=== PATIENT | female | born 1965 | race Two or more races ===

== ENCOUNTER 2025-06-25 12:32 | Inpatient (IN) | payer MEDICAID, OTHER ==
[~2025-06-25] VITALS: Ht 157.5 cm; Wt 77.6 kg
--- NOTE | 2025-06-25 13:20 | ED.PDOC ---
History of Present Illness(SKN HPI Comments A 60-YEAR-OLD FEMALE WITH NO SIGNIFICANT PMHX PRESENTS TO THE ED WITH A C/C OF A NOTABLE INFECTION, WITH ASSOCIATED CELLULITIS TO THE RIGHT ELBOW. PATIENT STATES THAT SHE PRESENTED TO URGENT CARE BUT WAS UNABLE TO GET TREATMENT DUE TO HER SUGAR BEING IN THE 300S, BUT DENIES HAVING DIABETES. PATIENT IS STARTED TO HAVE NOTABLE SWELLING, ERYTHEMA, AND NOTABLE PUS LIKE DISCHARGE UPON PALPITATION, IN SEVERE PAIN. PATIENT DENIES KNOWING THE SOURCE ROOT CAUSE OF INFECTION, NAUSEA, VOMITING, DIARRHEA, OR ANY OTHER ASSOCIATED SYMPTOMS, MODIFIERS AT THIS TIME. PT IS ALERT, ORIENTATION X4 WITH NORMAL GAIT. Chief Complaint: Abscess Time Seen by MD: 13:14 History of Present Illness: Nurses Notes, Medications, Allergies Allergies: Coded Allergies: NO KNOWN ALLERGIES (Unverified , 06/25/25) Information Source: Patient Mode of Arrival: Ambulatory Severity: Moderate Timing: Weeks Duration: Since onset, Days Prehospital treatment: None Location: Extremities (RIGHT ELBOW) Mechanism: Spontaneous Onset Object: Unknown Condition of Object: None Retained Foreign Body: Unknown Wound Type: Abscess Immunization Status of Animal: Unknown Tetanus: Unknown History of: Diabetes Associated Signs and Symptoms: Redness, Swelling, Pus, Pain Past Medical History PAST MEDICAL HISTORY: Denies Surgical History: Denies all surgeries 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 History Family History Family History: Reviewed,noncontributory to illness Social History Smoker: Non-Smoker Alcohol: Denies ETOH Use Drugs: Denies Drug Use Lives In: Home Constitutional: reports: others (ANXIOUS ); denies: chills, diaphoresis, fatigue, fever, malaise, sweats, weakness EENTM: denies: blurred vision, double vision, ear bleeding, ear discharge, ear drainage, ear pain, ear ringing, eye pain, eye redness, hearing loss, mouth pain, mouth swelling, nasal discharge, nose bleeding, nose congestion, nose pain, photophobia, tearing, throat pain, throat swelling, voice changes, others Respiratory: denies: cough, hemoptysis, orthopnea, SOB at rest, shortness of breath, SOB with excertion, stridor, wheezing, others Cardiovascular: denies: chest pain, dizzy spells, diaphoresis, Dyspnea on exertion, edema, irregular heart beat, left arm pain, lightheadedness, p alpitations, PND, syncope, others Gastrointestinal: denies: abdomen distended, abdominal pain, blood streaked bowels, constipated, diarrhea, dysphagia, difficulty swallowing, hematemesis, melena, nausea, poor appetite, poor fluid intake, rectal bleeding, rectal pain, vomiting, others Genitourinary: denies: abnormal vagina bleeding, burning, dyspareunia, dysuria, flank pain, frequency, hematuria, incontinence, pain, , vagina discharge, urgency, others Neurological: denies: dizziness, fainting, headache, left sided numbness, left sided weakness, numbness, paresthesia, pre-existing deficit, right sided numbness, right sided weakness, seizure, speech problems, tingling, tremors, weakness, others Musculoskeletal: denies: back pain, gout, joint pain, joint swelling, muscle pain, muscle stiffness, neck pain, others Integumetry: reports: lesions, wounds; denies: bruises, change in color, change in hair/nails, dryness, laceration, lumps, rash, others Allergic/Immunocompromised: denies: Difficulty Healing, Frequent Infections, Hives, Itching, others Hematologic/Lymphatic: denies: anemia, blood clots, easy bleeding, easy bruising, swollen glands, others Endocrine: denies: excessive hunger, excessive sweating, excessive thirst, excessive urination, flushing, intolerance to cold, intolerance to heat, u nexplained weight gain, unexplained weight loss, others Psychiatric: denies: anxiety, bipolar disorder, depression, hopeless, panic disorder, schizophrenia, sleepless, suicidal, others All Other Systems: Reviewed and Negative Physical Exam General Appearance: Mild Distress, Normal, Other (ANXIOUS ) HEENT: Normal ENT Inspection, PERRL/EOMI, Pharynx Normal, TMs Normal Neck: Full Range of Motion, Non-Tender, Normal, Normal Inspection Respiratory: Chest Non-Tender, Lungs Clear, No Accessory Muscle Use, No Respiratory Distress, Normal Breath Sounds Cardiovascular: No Edema, No JVD, No Murmur, No Gallop, Normal Peripheral Pulses, Regular Rate/Rhythm Breast Exam: Deferred Gastrointestinal: No Organomegaly, Non Tender, No Pulsatile Mass, Normal Bowel Sounds, Soft Genitalia: Deferred Pelvic: Deferred Rectal: Deferred Extremities: Decreased range of motion, Inflammation, No calf tenderness, Normal capillary refill, No pedal edema, Swelling (REDNESS AND ABSCESS ON RIGHT POSTERIOR ELBOW. ), Tender (SWELLING AND ERYTHEMA ON RIGHT POSTERIOR ELBOW. 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 ) Peripheral Pulses: 2+ carotid (R), 2+ carotid (L), 2+ Radial (R), 2+ Radial (L) Lymphatic: No Adenopathy Was a procedure done? Was a procedure done?: Yes Sedation Sedation?: No Incision and Drainage Incision and Drainage: Abscess Location RIGHT ELBOW Anesthetic: Lidocaine (NO EPI) Preparation: Betadine, Saline Incision and Wound: Pus, Blood, Amount, Packed Informed consent obtained: No Risks/benefits/alt described: Yes Differential Diagnosis (INTG) Differential Diagnosis: Abrasion, Cellulitis, Contusion, Puncture Wound Differential Diagnosis: Abscess, Cellulitis Differential Diagnosis: Abrasion, Cellulitis Abscess: Abscess, Cellulitis Differential Diagnosis: Cellulitis, Puncture Wound X-Ray, Labs, Meds, VS Vital Signs Date Time Temp Pulse Resp B/P (MAP) Pulse Ox O2 Delivery O2 Flow Rate FiO2 06/25/25 15:46 71 16 97 Room Air* 0 21 06/25/25 15:01 98.4 69 16 133/75 (94) 94 98.4 06/25/25 12:34 98.2 78 18 149/82 98 98.2 Lab Test 06/25/25 14:58 06/25/25 13:48 06/25/25 13:30 Range/Units POC Glucose 472 *H 70-106 mg/dl White Blood Count 12.8 H 4.4-10.8 10^3/uL Red Blood Count 4.73 4.0-5.20 10^6/uL Hemoglobin 15.5 12.2-16.2 g/dL Hematocrit 45.4 36.0-46.0 % Mean Corpuscular Volume 95.9 80.0-100.0 fL Mean Corpuscular Hemoglobin 32.9 H 28.0-32.0 pg Mean Corpuscular Hemoglobin Concent 34.3 32.0-36.0 g/dL Red Cell Distribution Width 13.3 11.8-14.3 % Platelet Count 216 140-450 10^3/uL Mean Platelet Volume 10.1 6.9-10.8 fL Neutrophils (%) (Auto) 87.7 H 37.0-80.0 % Lymphocytes (%) (Auto) 9.0 L 10.0-50.0 % Monocytes (%) (Auto) 3.0 0.0-12.0 % Eosinophils (%) (Auto) 0.1 0.0-7.0 % Basophils (%) (Auto) 0.2 0.0-2.0 % Neutrophils # (Auto) 11.3 H 1.6-8.6 10 ^3/uL Lymphocytes # (Auto) 1.2 0.4-5.4 10 ^3/uL Monocytes # (Auto) 0.4 0-1.3 10 ^3/uL Eosinophils # (Auto) 0 0-0.8 10 ^3/uL Basophils # (Auto) 0 0-0.2 10 ^3/uL Nucleated Red Blood Cells 0.1 % Sodium Level 134 L 136-145 mmol/L Potassium Level 4.2 3.5-5.1 mmol/L Chloride Level 100 98-107 mmol/L Carbon Dioxide Level 23 20-31 mmol/L Anion Gap 11 5-15 Blood Urea Nitrogen 16 9-23 mg/dL Creatinine 0.89 0.550-1.02 mg/dL Glomerular Filtration Rate Calc 75 >90 mL/min BUN/Creatinine Ratio 18.0 10.0-20.0 Serum Glucose 423 *H 74-106 mg/dL Lactic Acid Level 2.0 0.4-2.0 mmol/L Calcium Level 8.9 8.7-10.4 mg/dL C-Reactive Protein High Sensitivity Pending Urine Opiates Screen Neg NEGATIVE Urine Fentanyl Screen Neg NEGATIVE Urine Barbiturates Screen Neg NEGATIVE Urine Phencyclidine Screen Neg NEGATIVE Urine Amphetamines Screen Neg NEGATIVE Urine Benzodiazepines Screen Neg NEGATIVE Urine Cocaine Screen Neg NEGATIVE Urine Cannabinoids Screen Neg NEGATIVE Current Medications Medications (Trade) Dose Ordered Sig/Hector Route Start Time Stop Time Status Last Admin Ceftriaxone Sodium 50 ml @ 100 mls/hr ONCE ONCE IV 06/25/25 13:15 06/25/25 13:44 DC 06/25/25 14:16 Clindamycin Phosphate 50 ml @ 50 mls/hr ONCE ONCE IV 06/25/25 13:15 8/20/25 14:14 DC 06/25/25 14:03 Acetaminophen/ Hydrocodone Bitart (Sharps 5/325MG Tab) 1 tab ONCE ONCE PO 06/25/25 13:45 06/25/25 13:46 DC 06/25/25 13:55 Sodium Chloride 2,000 ml @ 1,000 mls/hr Q2H ONCE IV 06/25/25 14:30 06/25/25 16:29 DC 06/25/25 15:04 Insulin Human Regular (InsuLIN R) 10 units ONCE ONCE IV 06/25/25 14:30 06/25/25 14:31 DC 06/25/25 15:05 PATIENT: BLACK REYES ACCT: [id number] UNIT: [id number] : 1965 LOC: ER ROOM / BED: / AGE / SEX: 60 / F ADM STATUS: REG ER SERVICE 1314 ORDERING PHYSICIAN: DENISSE SANTIAGO PROCEDURE(s): RELB3 - R ELBOW 3 VIEW XRAY REASON: ABSCESS WOUND ORDER NUMBER(s): [id number], ACCESSION NUMBER(s): [id number] CLINICAL INDICATION: ABSCESS WOUND TECHNIQUE: 3 radiographic views of the right elbow were obtained. Comparison: None FINDINGS/IMPRESSION: There is small elbow joint effusion with no obvious fractures visualized. An occult fracture can not be excluded. There is significant posterior elbow soft tissue edema. X-Ray, Labs, Meds, VS Comment EXTERNAL MEDICAL RECORDS REVIEWED: [NONE] INDEPENDENT HISTORIANS: [NONE] SOCIAL DETERMINANTS OF HEALTH: [NONE] LABS ORDERED: CBC, BNP, LACTIC ACID, BLOOD CULTURES, WOUND CULTURES REVIEWED AND INTERPRETED RESULTS: WBC 12.8 SODIUM 131, GLUCOSE 423, IMAGING ORDERED: RIGHT ELBOW X-RAY TREATMENTS ORDERED: ROCEPHIN, CLINDAMYCIN, NORCO 5, LIDOCAINE 1% WITHOUT EPI, 0.9 NS 2L, REGULAR INSULIN 10 UNITS PROCEDURES PERFORMED: RIGHT ELBOW ABSCESS I&D CRITICAL CARE TIME: NONE I HAVE DISCUSSED THE PATIENT WITH THE ATTENDING PHYSICIAN (LYLE) AND S/HE AGREES WITH THE PATIENT'S PLAN OF CARE AND DISPOSITION. 60-YEAR-OLD FEMALE CAME IN FOR THE C/C OF A ABSCESS WITH NOTABLE CELLULITIS TO THE RIGHT ELBOW, PATIENT HAD NOTABLE DISCHARGE, AND ERYTHEMA UPON EXAMINATION WITH THE PAIN UPON PALPITATION, AN INCISION AND DRAINAGE PROCEDURE WAS PERFORMED AND NOTED BLOOD AND PUS LIKE DRAINAGE WAS REMOVED AND PROPER WRAPPING ADMINISTERED, PATIENT IS GOING TO BE ADMITTED TO THE HOSPITAL FOR FURTHER EVALUATION AND TREATMENT. Time of 1ST Reevaluation: 13:47 Reevaluation 1ST: Unchanged Patient Education/Counseling: Diagnosis, Treatment Family Education/Counseling: Diagnosis, Treatment, No Family Present SEPSIS Sepsis Screen Date sepsis recognized/suspect: Jun 25, 2025 Time Sepsis recognized/suspect: 6 Recent Procedure: No On Antibiotic Therapy: No Respiratory Rate >20: No Heart Rate >90: No Temp<36 C (96.8 F) or >38.3 C: No SBP <90 or MAP <65 mmHG: No New Acute Mental Status Change: No Is the patient on CPAP, BIPAP,: No Physician Orders Wound Culture W/ Gs (06/25/25 13:14) Blood Culture (06/25/25 13:14) 4X4 (06/25/25 13:14) Betadine (06/25/25 13:14) Disposable Chux (06/25/25 13:14) Lac Tray (06/25/25 13:14) R Elbow 3 View Xray (06/25/25 13:14) Heplock Iv (06/25/25 ) Vital Signs Date Time Temp Pulse Resp B/P (MAP) Pulse Ox O2 Delivery O2 Flow Rate FiO2 06/25/25 15:46 71 16 97 Room Air* 0 21 06/25/25 15:01 98.4 69 16 133/75 (94) 94 98.4 06/25/25 12:34 98.2 78 18 149/82 98 98.2 Laboratory Tests Test 06/25/25 13:48 Lactic Acid Level 2.0 mmol/L (0.4-2.0) White Blood Count 12.8 10^3/uL (4.4-10.8) H Medications Medications Dose Ordered Sig/Hector Route Start Time Stop Time Status Last Admin Dose Admin Acetaminophen/ Hydrocodone Bitart 1 tab ONCE ONCE PO 06/25/25 13:45 06/25/25 13:46 DC 06/25/25 13:55 Ceftriaxone Sodium 50 ml @ 100 mls/hr ONCE ONCE IV 06/25/25 13:15 06/25/25 13:44 DC 06/25/25 14:16 Clindamycin Phosphate 50 ml @ 50 mls/hr ONCE ONCE IV 06/25/25 13:15 06/25/25 14:14 DC 06/25/25 14:03 Insulin Human Regular 10 units ONCE ONCE IV 06/25/25 14:30 06/25/25 14:31 DC 06/25/25 15:05 Sodium Chloride 2,000 ml @ 1,000 mls/hr Q2H ONCE IV 06/25/25 14:30 06/25/25 16:29 DC 06/25/25 15:04 Departure 1 Departure Time of Disposition: 14:00 Impression: Primary Impression: Cellulitis of right elbow Additional Impressions: Abscess of right elbow New onset type 2 diabetes mellitus Disposition: ADMITTED INPATIENT Admit to: Med Surg Condition: Serious Discharged With: Other (ADMITTED) Critical Care Note Critical Care Time?: No Stability Stability form required: Yes Unstable for transfer: Requires medication, ED Physician Assesment, Possible rapid decline Heart Score Heart Score: Heart Score Response (Comments) Value History N/A 0 EKG N/A 0 Age N/A 0 Risk Factors N/A 0 Troponin N/A 0 Total 0 I personally scribed for DENISSE SANTIAGO PA ([email or web address]) on 06/25/25 at 13:20. Electronically submitted by Wilfred Suarez ([email or web address]). I personally scribed for DENISSE SANTIAGO PA ([email or web address]) on 06/25/25 at 13:22. Electronically submitted by Wlifred Suarez ([email or web address]). I personally scribed for MACIEL SANTIAGOA PA ([email or web address]) on 06/25/25 at 13:40. Electronically submitted by Wilfred Suarez ([employer]). I personally scribed for MACIEL SANTIAGOA PA ([email or web address]) on 06/25/25 at 13:49. Electronically submitted by Wilfred Suarez ([employer]). I personally scribed for MACIEL SANTIAGOA PA ([email or web address]) on 06/25/25 at 14:32. Electronically submitted by Wilfred Suarez ([email or web address]). DENISSE SANTIAGO Jun 25, 2025 13:20
[2025-06-25] MEDS: LIDOCAINE 1% HCL (LOCAL ANESTH.) INJ 20ML MDV IJ ONE (13:26)
--- NOTE | 2025-06-25 13:54 | DVH ---
CLINICAL INDICATION: ABSCESS WOUND TECHNIQUE: 3 radiographic views of the right elbow were obtained. Comparison: None FINDINGS/IMPRESSION: There is small elbow joint effusion with no obvious fractures visualized. An occult fracture can not be excluded. There is significant posterior elbow soft tissue edema.
[2025-06-25] MEDS: HYDROcodone-ACET 5/325MG TAB PO ONE (13:55)
[2025-06-25] MEDS: CLINDAMYCIN 600MG IV 50 ML IV ONE (14:03)
[2025-06-25 14:04] LABS: Hematocrit 45.4 % (36.0-46.0); Hemoglobin 15.5 g/dL (12.2-16.2); Mean Corpuscular Hemoglobin 32.9 pg (28.0-32.0); Mean Corpuscular Volume 95.9 fL (80.0-100.0); Nucleated Red Blood Cells % 0.1 %
[2025-06-25 14:08] LABS: Anion Gap 11 (5-15); Carbon Dioxide 23 mmol/L (20-31); Chloride 100 mmol/L (98-107); Potassium 4.2 mmol/L (3.5-5.1)
[2025-06-25 14:09] LABS: Calcium 8.9 mg/dL (8.7-10.4); Sodium 134 mmol/L (136-145)
[2025-06-25 14:14] LABS: BUN/Creatinine Ratio 18.0 (10.0-20.0); Blood Urea Nitrogen 16 mg/dL (9-23)
[2025-06-25] MEDS: cefTRIAXone 1GM/50ML D5W 50 ML IV ONE (14:16)
[2025-06-25 14:20] LABS: Glucose 423 mg/dL (74-106)
[2025-06-25] MEDS: SODIUM CHLORIDE 0.9% 2,000 ML IV ONE (15:04)
[2025-06-25 15:05] LABS: Amphetamine Screen, Urine Neg (NEGATIVE); Barbiturate Scree,Urine Neg (NEGATIVE); Benzodiazephine Screen, Urine Neg (NEGATIVE); Cannabinoid Screen, Urine Neg (NEGATIVE); Cocaine Screen, Urine Neg (NEGATIVE); Opiate Scree,Urine Neg (NEGATIVE); Phencyclidine Screen, Urine Neg (NEGATIVE)
[2025-06-25] MEDS: InsuLIN REG 1unit/0.01ml Soln (100units/ml) IV ONE (15:05)
[2025-06-25 15:46] VITALS: PULSE 71; RESP 16; O2SAT 97
[2025-06-25] MEDS ORDERED: DOCUSATE SOD 100 MG CAP PO PRN (16:45)
[2025-06-25] MEDS ORDERED: VANCOMYCIN PER PHARMACY 0 MG IV SCH (16:45)
--- NOTE | 2025-06-25 16:56 | DVHHP2 ---
Admitting Diagnosis: right elbow pain History of Present Illness 60-YEAR-OLD FEMALE WITH NO SIGNIFICANT PMHX PRESENTS TO THE ED WITH A C/C OF A NOTABLE INFECTION, WITH ASSOCIATED CELLULITIS TO THE RIGHT ELBOW. PATIENT STATES THAT SHE PRESENTED TO URGENT CARE BUT WAS UNABLE TO GET TREATMENT DUE TO HER SUGAR BEING IN THE 300S, BUT DENIES HAVING DIABETES. PATIENT IS STARTED TO HAVE NOTABLE SWELLING, ERYTHEMA, AND NOTABLE PUS LIKE DISCHARGE UPON PALPITATION, IN SEVERE PAIN. PATIENT DENIES KNOWING THE SOURCE ROOT CAUSE OF INFECTION, NAUSEA, VOMITING, DIARRHEA, OR ANY OTHER ASSOCIATED SYMPTOMS, MODIFIERS AT THIS TIME. 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 History Family History Family History: Reviewed,noncontributory to illness Social History Smoker: Non-Smoker Alcohol: Denies ETOH Use Drugs: Denies Drug Use Lives In: Home Allergies: Coded Allergies: NO KNOWN ALLERGIES (Unverified , 06/25/25) Current Medications Current Medications Medications (Trade) Dose Ordered Sig/Hector Route PRN Reason Start Time Stop Time Status Last Admin Sodium Chloride (Saline Lock Ns) 10 ml Q8HR IV 06/25/25 22:00 UNV Docusate Sodium (Colace Capsule) 100 mg BIDPRN PRN PO FOR CONSTIPATION 06/25/25 16:45 UNV Acetaminophen (Tylenol Tablet) 650 mg Q6HP PRN PO PAIN SCALE 1-3 OR TEMP>100.4 06/25/25 16:45 UNV Acetaminophen/ Hydrocodone Bitart (Lenorah 5/325MG Tab) 1 tab Q4HP PRN PO MODERATE PAIN (4-6 PAIN SCALE) 06/25/25 16:45 UNV Ondansetron HCl (Zofran) 4 mg Q4HP PRN IV NAUSEA / VOMITING 06/25/25 16:45 UNV Enoxaparin Sodium (Lovenox) 40 mg DAILY SC 06/26/25 10:00 UNV Vital Signs Vital Signs Date Time Temp Pulse Resp B/P (MAP) Pulse Ox O2 Delivery O2 Flow Rate FiO2 06/25/25 15:46 71 16 97 Room Air* 0 21 06/25/25 15:01 98.4 133/75 (94) 98.4 Physical Exam [id number]igiy-old woman, well nourished well developed. Mild distress HEENT-atraumatic normocephalic Heart-regular rate and rhythm Lungs clear to auscultate bilaterally Abdomen soft nontender nondistended Musculoskeletal-elbow edema, erythema, tender to palpate. Neuro-AO x3, strength and sensory intact SEPSIS Sepsis Screen Date sepsis recognized/suspect: Jun 25, 2025 Time Sepsis recognized/suspect: 1235 Recent Procedure: No On Antibiotic Therapy: No Respiratory Rate >20: No Heart Rate >90: No Temp<36 C (96.8 F) or >38.3 C: No SBP <90 or MAP <65 mmHG: No New Acute Mental Status Change: No Is the patient on CPAP, BIPAP,: No Physician Orders Wound Culture W/ Gs (06/25/25 13:14) Blood Culture (06/25/25 13:14) 4X4 (06/25/25 13:14) Betadine (06/25/25 13:14) Disposable Chux (06/25/25 13:14) Lac Tray (06/25/25 13:14) R Elbow 3 View Xray (06/25/25 13:14) Heplock Iv (06/25/25 ) * Wound Consult (06/25/25 ) Admit (06/25/25 16:44) Code Status (06/25/25 16:44) Vital Signs .PER UNIT PROTOCOL (06/25/25 16:44) Review Orders With Adm.Md (06/25/25 16:44) Encourage Activity As Tolerate (06/25/25 16:44) Consistent Carb(Ccho)Diabetes (06/25/25 Dinner) Sodium Chloride Lock (Saline Lock Ns) (06/25/25 22:00) Docusate Sodium Capsule (Colace Capsule) (06/25/25 16:45) Acetaminophen Tablet (Tylenol Tablet) (06/25/25 16:45) Notify Md Of Changes From Base (06/25/25 16:44) Advance Directive (06/25/25 16:44) Patient Condition (06/25/25 16:44) Allergies (06/25/25 16:44) Hydrocodone-Acet 5/325mg Tab (Lenorah 5/32 (06/25/25 16:45) Ondansetron Hcl (Zofran) (06/25/25 16:45) Enoxaparin Sodium (Lovenox) (06/26/25 10:00) Piperacillin-Tazob 3.375gm (Zosyn 3.375g (06/25/25 22:00) Vancomycin Per Pharmacy (06/25/25 16:45) Glucose Blood (Accu-Chek Comfort Curve T (06/25/25 17:00) Bedtime Insulin Scale (06/25/25 22:00) Moderate Insulin Ss (06/25/25 17:00) Dextrose 50% Syringe (06/25/25 17:00) Ct R Elbow Wo Contrast (06/25/25 16:48) Comprehensive Metabolic Panel (06/26/25 05:00) Comprehensive Metabolic Panel (06/27/25 05:00) Comprehensive Metabolic Panel (06/28/25 05:00) Comprehensive Metabolic Panel (06/29/25 05:00) Comprehensive Metabolic Panel (06/30/25 05:00) Complete Blood Count (06/26/25 05:00) Complete Blood Count (06/27/25 05:00) Complete Blood Count (06/28/25 05:00) Complete Blood Count (06/29/25 05:00) Complete Blood Count (06/30/25 05:00) C-Reactive Protein (06/25/25 16:48) Vital Signs Date Time Temp Pulse Resp B/P (MAP) Pulse Ox O2 Delivery O2 Flow Rate FiO2 06/25/25 15:46 71 16 97 Room Air* 0 21 06/25/25 15:01 98.4 69 16 133/75 (94) 94 98.4 06/25/25 12:34 98.2 78 18 149/82 98 98.2 Laboratory Tests Test 06/25/25 13:48 Lactic Acid Level 2.0 mmol/L (0.4-2.0) White Blood Count 12.8 10^3/uL (4.4-10.8) H Medications Medications Dose Ordered Sig/Hector Route Start Time Stop Time Status Last Admin Dose Admin Acetaminophen/ Hydrocodone Bitart 1 tab ONCE ONCE PO 06/25/25 13:45 06/25/25 13:46 DC 06/25/25 13:55 Ceftriaxone Sodium 50 ml @ 100 mls/hr ONCE ONCE IV 06/25/25 13:15 06/25/25 13:44 DC 06/25/25 14:16 Clindamycin Phosphate 50 ml @ 50 mls/hr ONCE ONCE IV 06/25/25 13:15 06/25/25 14:14 DC 06/25/25 14:03 Insulin Human Regular 10 units ONCE ONCE IV 06/25/25 14:30 06/25/25 14:31 DC 06/25/25 15:05 Sodium Chloride 2,000 ml @ 1,000 mls/hr Q2H ONCE IV 06/25/25 14:30 06/25/25 16:29 DC 06/25/25 15:04 Results Labs Test 06/25/25 14:58 06/25/25 13:48 06/25/25 13:30 Range/Units POC Glucose 472 *H 70-106 mg/dl White Blood Count 12.8 H 4.4-10.8 10^3/uL Red Blood Count 4.73 4.0-5.20 10^6/uL Hemoglobin 15.5 12.2-16.2 g/dL Hematocrit 45.4 36.0-46.0 % Mean Corpuscular Volume 95.9 80.0-100.0 fL Mean Corpuscular Hemoglobin 32.9 H 28.0-32.0 pg Mean Corpuscular Hemoglobin Concent 34.3 32.0-36.0 g/dL Red Cell Distribution Width 13.3 11.8-14.3 % Platelet Count 216 140-450 10^3/uL Mean Platelet Volume 10.1 6.9-10.8 fL Neutrophils (%) (Auto) 87.7 H 37.0-80.0 % Lymphocytes (%) (Auto) 9.0 L 10.0-50.0 % Monocytes (%) (Auto) 3.0 0.0-12.0 % Eosinophils (%) (Auto) 0.1 0.0-7.0 % Basophils (%) (Auto) 0.2 0.0-2.0 % Neutrophils # (Auto) 11.3 H 1.6-8.6 10 ^3/uL Lymphocytes # (Auto) 1.2 0.4-5.4 10 ^3/uL Monocytes # (Auto) 0.4 0-1.3 10 ^3/uL Eosinophils # (Auto) 0 0-0.8 10 ^3/uL Basophils # (Auto) 0 0-0.2 10 ^3/uL Nucleated Red Blood Cells 0.1 % Sodium Level 134 L 136-145 mmol/L Potassium Level 4.2 3.5-5.1 mmol/L Chloride Level 100 98-107 mmol/L Carbon Dioxide Level 23 20-31 mmol/L Anion Gap 11 5-15 Blood Urea Nitrogen 16 9-23 mg/dL Creatinine 0.89 0.550-1.02 mg/dL Glomerular Filtration Rate Calc 75 >90 mL/min BUN/Creatinine Ratio 18.0 10.0-20.0 Serum Glucose 423 *H 74-106 mg/dL Lactic Acid Level 2.0 0.4-2.0 mmol/L Calcium Level 8.9 8.7-10.4 mg/dL Urine Opiates Screen Neg NEGATIVE Urine Fentanyl Screen Neg NEGATIVE Urine Barbiturates Screen Neg NEGATIVE Urine Phencyclidine Screen Neg NEGATIVE Urine Amphetamines Screen Neg NEGATIVE Urine Benzodiazepines Screen Neg NEGATIVE Urine Cocaine Screen Neg NEGATIVE Urine Cannabinoids Screen Neg NEGATIVE Primary Diagnosis Right elbow cellulitis Hyperglycemia control Plan Vanc and Zosyn for broad-spectrum antibiotic in view of hyperglycemia Blood culture Wound culture CT right elbow to assess for abscess IV fluids Pain control Antiemetic check a1c level when admitted Wound care Full code Lovenox for DVT prophylaxis No GI prophylaxis needed Low carb diet Plan discussed with: Patient Date of Service: Jun 25, 2025 Billing Provider: ANA MARÍA PINEDA MD Common Visit Codes: [id number] INP/OBS CARE (HIGH) ANA MARÍA PINEDA MD Jun 25, 2025 16:56
[2025-06-25] MEDS ORDERED: DEXTROSE (50%) 50ML SYRG IV PRN (17:00)
[2025-06-25] MEDS ORDERED: hydrALAZINE HCL 20 MG/ML VL IV PRN (17:15)
--- NOTE | 2025-06-25 17:40 | DVH ---
EXAM: CT CT R ELBOW WO CONTRAST INDICATION: Right elbow cellulitis EXAM DATE: 06/25/2025 04:54 PM COMPARISON: None TECHNIQUE: Multiple axial CT images of the right elbow were obtained using bone algorithm. Axial and coronal reformatting was done. Bone and soft tissue windows were reviewed. Radiation Dose Information: CT Dose: CTDI volume is 24.58 mGy. Dose-length product is 773.12 mGy*cm Findings/Impression: Limited evaluation given noncontrast technique. There is no evidence of an acute fracture, dislocation, osseous erosions, blastic, or lytic lesions. No radiopaque foreign bodies. No joint effusion. 3.7 x 1.4 x 5.2 cm subcutaneous soft tissue collection with subcutaneous emphysema along the lateral aspect of the right elbow. May reflect an abscess. Recommend contrast-enhanced CT or MRI for further evaluation.
[2025-06-25 17:52] VITALS: BP 114/67; PULSE 66; RESP 17; TEMP 98; O2SAT 97
[2025-06-25] MEDS: HYDROcodone-ACET 5/325MG TAB PO PRN (18:44)
[2025-06-25] MEDS: SODIUM CHLORIDE 0.9% 1,000 ML IV ONE (18:44)
[2025-06-25] MEDS: VANCOMYCIN 750MG KIT 100 ML IV SCH (18:44)
[2025-06-25] MEDS: ACCU-CHEK COMFORT CURVE STRIP VI SCH (18:57)
[2025-06-25] MEDS: InsuLIN REG 1unit/0.01ml Soln (100units/ml) SC SCH ×2 (18:58→21:24)
[2025-06-25 20:30] VITALS: PULSE 72; RESP 17; O2SAT 98
[2025-06-25 21:00] VITALS: BP 120/75; PULSE 72; RESP 17; TEMP 98.2; O2SAT 98
[2025-06-25] MEDS: SODIUM CHLOR 0.9% PF (SALINE LOCK) 10ML VIAL/SYR IV SCH (21:21)
[2025-06-25] MEDS: PIPERACILLIN-TAZOB 3.375GM 100 ML IV SCH (21:23)
[2025-06-26] VITALS (8 sets, daily range): BP systolic 107–138; BP diastolic 61–89; PULSE 65–75; RESP 16–20; TEMP 97.3–98.8; O2SAT 96–100
[2025-06-26 06:15] LABS: Hematocrit 45.3 % (36.0-46.0); Hemoglobin 15.1 g/dL (12.2-16.2); Mean Corpuscular Hemoglobin 32.0 pg (28.0-32.0); Mean Corpuscular Volume 96.4 fL (80.0-100.0); Nucleated Red Blood Cells % 0.0 %
[2025-06-26 06:29] LABS: Anion Gap 9 (5-15); BUN/Creatinine Ratio 17.7 (10.0-20.0); Blood Urea Nitrogen 11 mg/dL (9-23); Calcium 8.7 mg/dL (8.7-10.4); Carbon Dioxide 24 mmol/L (20-31); Chloride 104 mmol/L (98-107); Sodium 137 mmol/L (136-145); Total Protein 6.8 g/dL (5.7-8.2)
[2025-06-26 06:30] LABS: Albumin 3.6 g/dL (3.2-4.8); Bilirubin, Total 0.6 mg/dL (0.2-1.0)
[2025-06-26] MEDS: ACETAMINOPHEN 325 MG TAB PO PRN (06:31)
[2025-06-26 06:32] LABS: Alanine Aminotransferase 70 U/L (7-40); Alkaline Phosphatase 144 U/L (46-116); Glucose 155 mg/dL (74-106); Potassium 3.5 mmol/L (3.5-5.1)
[2025-06-26] MEDS: ENOXAPARIN SOD 40 MG/0.4 ML SYRINGE SC SCH (10:14)
--- NOTE | 2025-06-26 10:27 | DVHPN2 ---
Progress Note Date Seen: Jun 26, 2025 Medical Necessity Reason Pt with a Central, PICC or Fol: No Subjective Patient reports: No new complaints Review of Systems: HEENT:Normal, CVS:Normal, RESPIRATORY:Normal, GI:Normal, :Normal, MSK:Normal, NEURO:Normal Objective vital signs Vital Sign Date Time Temp Pulse Resp B/P (MAP) Pulse Ox O2 Delivery O2 Flow Rate FiO2 06/26/25 08:40 98.3 68 18 116/73 (87) 99 98.3 06/25/25 20:30 Room Air* 0 21 Total Intake and Output 06/25/25 06/25/25 06/26/25 15:00 23:00 07:00 Intake Total 275 ml 600 ml Balance 275 ml 600 ml medications Current Medications Medications Dose Ordered Sig/Hector Route Start Time Stop Time Status Last Admin Dose Admin Sodium Chloride 10 ml Q8HR IV 06/25/25 22:00 06/26/25 06:20 10 ML Docusate Sodium 100 mg BIDPRN PRN PO 06/25/25 16:45 Acetaminophen 650 mg Q6HP PRN PO 06/25/25 16:45 06/26/25 06:31 650 MG Acetaminophen/ Hydrocodone Bitart 1 tab Q4HP PRN PO 06/25/25 16:45 06/26/25 10:14 1 TAB Ondansetron HCl 4 mg Q4HP PRN IV 06/25/25 16:45 Enoxaparin Sodium 40 mg DAILY SC 06/26/25 10:00 06/26/25 10:14 40 MG Piperacillin Sod/ Tazobactam Sod 100 ml @ 25 mls/hr Q8HR IV 06/25/25 22:00 06/26/25 06:30 25 MLS/HR Vancomycin HCl 0 ml @ 0 mls/hr UD IV 06/25/25 16:45 Diagnostic Test (Pha) 1 strip ACHS 06/25/25 17:00 06/26/25 06:21 1 STRIP Insulin Human Regular HS SC 06/25/25 22:00 06/25/25 21:24 10 UNITS Insulin Human Regular AC SC 06/25/25 17:00 06/26/25 06:39 2 UNITS Dextrose 50 ml UD PRN IV 06/25/25 17:00 Vancomycin HCl 100 ml @ 100 mls/hr Q12H IV 06/25/25 18:00 8/21/25 06:30 100 MLS/HR Hydralazine HCl 10 mg Q6HP PRN IV 06/25/25 17:15 Examination: GENERAL:Normal, HEENT:Normal, NECK:Normal, LUNGS:Normal, CVS:Normal, ABDOMEN:Normal, MSK:Normal, MSK:Abnormal (right elbow redness, right arm swelling), SKIN:Normal, NEURO:Normal, :Normal laboratory and microbiology Laboratory Tests 06/26/25 05:40 Test 06/26/25 05:40 Range/Units Serum Glucose 155 H 74-106 mg/dL Microbiology Date/Time Source Procedure Growth Status 06/25/25 13:48 Blood Blood Culture - Preliminary Resulted 06/25/25 13:25 Elbow Right Gram Stain Pending Resulted 06/25/25 13:25 Elbow Right Wound Culture - Preliminary Resulted Problem List/Assessment/Plan Problem List/Assessment/Plan #1 right elbow infection with sepsis: iv vanc, zosyn, ortho eval #2 dm- new onset: ssi #3 h/o RA #4 obesity #5 transaminitis advance care planning- full code- time spent 17 mins Plan discussed with: Patient Date of Service: Jun 26, 2025 Billing Provider: RHYS BRICEÑO MD Common Visit Codes: [id number] INP/OBS CARE(HIGH) Secondary Visit Codes: [id number] CARE PLAN 30 MINUTES RHYS BRICEÑO MD Jun 26, 2025 10:27
--- NOTE | 2025-06-26 11:59 | DVHINCON2 ---
Date of service: Jun 26, 2025 Reason for Consultation right elbow pain History of Present Illness Patient is a pleasant 60 year old female who is s/p bedside I&D in the ER. Patient reports a history of RA and has chronic history of joint pain however she began noting localized swelling and redness at the right elbow and became concerned when it started to affect her mobility. She states that the pain has improved since having the elbow drained and irrigated in the ER. She denies any numbness or tingling. She is able to perform some flexion and extension of the elbow and states she feels better "now that all the pus was drained". She admits her DM has been poorly controlled and she is now aware that she needs to make lifestyle changes so she can get a better control on her overall health. Past Medical History DM RA Family History: Arthritis G8 MOTHER Diabetes mellitus G8 MOTHER G8 FATHER Allergies: Coded Allergies: NO KNOWN ALLERGIES (Unverified , 06/25/25) Current Medications Current Medications Medications (Trade) Dose Ordered Sig/Hector Route PRN Reason Start Time Stop Time Status Last Admin Sodium Chloride (Saline Lock Ns) 10 ml Q8HR IV 06/25/25 22:00 06/26/25 06:20 Docusate Sodium (Colace Capsule) 100 mg BIDPRN PRN PO FOR CONSTIPATION 06/25/25 16:45 Acetaminophen (Tylenol Tablet) 650 mg Q6HP PRN PO PAIN SCALE 1-3 OR TEMP>100.4 06/25/25 16:45 06/26/25 06:31 Acetaminophen/ Hydrocodone Bitart ([place] 5/325MG Tab) 1 tab Q4HP PRN PO MODERATE PAIN (4-6 PAIN SCALE) 06/25/25 16:45 06/26/25 10:14 Ondansetron HCl (Zofran) 4 mg Q4HP PRN IV NAUSEA / VOMITING 06/25/25 16:45 Enoxaparin Sodium (Lovenox) 40 mg DAILY SC 06/26/25 10:00 06/26/25 10:25 DC 06/26/25 10:14 Piperacillin Sod/ Tazobactam Sod 100 ml @ 25 mls/hr Q8HR IV 06/25/25 22:00 06/26/25 06:30 Vancomycin HCl 0 ml @ 0 mls/hr UD IV 06/25/25 16:45 Diagnostic Test (Pha) (Accu-Chek Comfort Curve T) 1 strip ACHS 06/25/25 17:00 06/26/25 11:38 Insulin Human Regular (InsuLIN R) HS SC 06/25/25 22:00 06/25/25 21:24 Insulin Human Regular (InsuLIN R) AC SC 06/25/25 17:00 06/26/25 11:45 Dextrose 50 ml UD PRN IV Blood Sugar LESS THAN 60 06/25/25 17:00 Vancomycin HCl 100 ml @ 100 mls/hr Q12H IV 06/25/25 18:00 06/26/25 06:30 Hydralazine HCl (Apresoline Injection) 10 mg Q6HP PRN IV SBP>150 06/25/25 17:15 Morphine Sulfate 2 mg Q4HPRN PRN IV SEVERE PAIN (7-10 PAIN SCALE) 06/26/25 10:30 UNV Review of Systems 10 point ROS otherwise negative as per HPI Vital Signs Vital Signs Date Time Temp Pulse Resp B/P (MAP) Pulse Ox O2 Delivery O2 Flow Rate FiO2 06/26/25 08:40 98.3 68 18 116/73 (87) 99 98.3 06/25/25 20:30 Room Air* 0 21 Physical Exam General: No apparent distress noted, some complaints of pain to the right hip Neuro: alert and oriented x 3 Skin: no abnormal lesions or unexplained bruising HEENT: NCAT Resp: no labored breathing or use of accessory muscles Cardiac: no shortness of breath or chest pain Abdomen: soft, flat and non-tender Msk: Dressing intact packing noted with no active purulent drainage noted +TTP at right elbow at lateral epicondyle + generalized erythema and swelling sensation intact across the axillary, ulnar, radial and median nerve dis tributions Labs/Diagnostic Data Labs Test 06/26/25 05:50 06/26/25 05:40 06/25/25 13:48 06/25/25 13:30 Range/Units POC Glucose 148 H 70-106 mg/dl White Blood Count 10.2 4.4-10.8 10^3/uL Red Blood Count 4.70 4.0-5.20 10^6/uL Hemoglobin 15.1 12.2-16.2 g/dL Hematocrit 45.3 36.0-46.0 % Mean Corpuscular Volume 96.4 80.0-100.0 fL Mean Corpuscular Hemoglobin 32.0 28.0-32.0 pg Mean Corpuscular Hemoglobin Concent 33.3 32.0-36.0 g/dL Red Cell Distribution Width 13.7 11.8-14.3 % Platelet Count 203 140-450 10^3/uL Mean Platelet Volume 10.2 6.9-10.8 fL Neutrophils (%) (Auto) 66.7 37.0-80.0 % Lymphocytes (%) (Auto) 25.7 10.0-50.0 % Monocytes (%) (Auto) 6.4 0.0-12.0 % Eosinophils (%) (Auto) 0.9 0.0-7.0 % Basophils (%) (Auto) 0.3 0.0-2.0 % Neutrophils # (Auto) 6.8 1.6-8.6 10 ^3/uL Lymphocytes # (Auto) 2.6 0.4-5.4 10 ^3/uL Monocytes # (Auto) 0.6 0-1.3 10 ^3/uL Eosinophils # (Auto) 0.1 0-0.8 10 ^3/uL Basophils # (Auto) 0 0-0.2 10 ^3/uL Nucleated Red Blood Cells 0.0 % Sodium Level 137 136-145 mmol/L Potassium Level 3.5 3.5-5.1 mmol/L Chloride Level 104 98-107 mmol/L Carbon Dioxide Level 24 20-31 mmol/L Anion Gap 9 5-15 Blood Urea Nitrogen 11 9-23 mg/dL Creatinine 0.62 # 0.550-1.02 mg/dL Glomerular Filtration Rate Calc 103 >90 mL/min BUN/Creatinine Ratio 17.7 10.0-20.0 Serum Glucose 155 H 74-106 mg/dL Calcium Level 8.7 8.7-10.4 mg/dL Total Bilirubin 0.6 0.2-1.0 mg/dL Aspartate Amino Transferase (AST) 39 13-40 U/L Alanine Aminotransferase (ALT) 70 H 7-40 U/L Alkaline Phosphatase 144 H 46-116 U/L Total Protein 6.8 5.7-8.2 g/dL Albumin 3.6 3.2-4.8 g/dL Lactic Acid Level 2.0 0.4-2.0 mmol/L C-Reactive Protein High Sensitivity 7.50 H <1.0 mg/dL Urine Opiates Screen Neg NEGATIVE Urine Fentanyl Screen Neg NEGATIVE Urine Barbiturates Screen Neg NEGATIVE Urine Phencyclidine Screen Neg NEGATIVE Urine Amphetamines Screen Neg NEGATIVE Urine Benzodiazepines Screen Neg NEGATIVE Urine Cocaine Screen Neg NEGATIVE Urine Cannabinoids Screen Neg NEGATIVE Microbiology Date/Time Source Procedure Growth Status 06/25/25 13:48 Blood Blood Culture - Preliminary Resulted 06/25/25 13:25 Elbow Right Gram Stain Pending Resulted 06/25/25 13:25 Elbow Right Wound Culture - Preliminary Resulted Assessment right elbow infection Plan/Recommendation A discussion was held at the bedside with the patient regarding the present condition. Questions were answered. Patient is aware that we do not need to recommend surgery at this time being that she did already have a bedside I&D. We did have a lengthy discussion in regards to DM control and seeing rheumatology. Patient was advised that we will order MRI to rule out and osteomyelitis and to further evaluate the joint. If no concerning findings on MRI can continue with antibiotics and local wound care. 1. pain control 2. continue with abx as scheduled 3. MRI right elbow ordered 4. WBAT RUE as tolerated 5. Discussed ROM exercises with patient 6. performed bedside wound check and new dressing placed Plan discussed with: Patient BRADY WANG NP Jun 26, 2025 11:59
[2025-06-26 12:42] LABS: Urine Protein, UAD Negative (Negative)
[2025-06-26] MEDS: MORPHINE SULFATE INJ 2 MG/ml SYRG IV PRN (13:36)
--- NOTE | 2025-06-26 20:25 | DVH ---
EXAM: MRI MRI R ELBOW WO CONTRAST DATE OF SERVICE: 06/26/2025 03:40 PM ORDERING PHYSICIAN: MARIA GUADALUPE BRICEÑO REASON FOR EXAM: rule out osteomyelitis TECHNIQUE: MRI of the right elbow was performed without IV contrast. COMPARISON: CT CT R ELBOW WO CONTRAST on DOS: 06/25/25, XY R ELBOW 3 VIEW XRAY on DOS: 06/25/25 FINDINGS: There is diffuse soft tissue swelling. There is complex fluid and faucet up air posterior to the elec zuleyma. There is no abnormal bone marrow signal change to suggest acute osteomyelitis. There is trace fluid w ithin the elbow joint. There is diffuse edema within the triceps muscle. There is mild edema within the imaged posterior for earm musculature. The triceps tendon is grossly intact. IMPRESSION: Diffuse soft tissue swelling with complex fluid and foci of air posterior to the olecranon. Please co rrelate with surgical history. If better assessment is warranted, consider contrast enhanced MRI or C T. No MRI evidence for acute osteomyelitis. Diffuse triceps myositis. Myositis involving the image posterior for musculature. Trace elbow joint diffusion.
[2025-06-27] VITALS (7 sets, daily range): BP systolic 97–111; BP diastolic 61–70; PULSE 63–80; RESP 16–20; TEMP 98.1–98.8; O2SAT 93–97
[2025-06-27] MEDS: ONDANSETRON HCL 4 MG/2 ML VIAL IV PRN (04:50)
[2025-06-27 06:59] LABS: Hematocrit 41.7 % (36.0-46.0); Hemoglobin 14.3 g/dL (12.2-16.2); Mean Corpuscular Hemoglobin 32.6 pg (28.0-32.0); Mean Corpuscular Volume 95.1 fL (80.0-100.0); Nucleated Red Blood Cells % 0.0 %
[2025-06-27 07:17] LABS: Anion Gap 9 (5-15); BUN/Creatinine Ratio 18.3 (10.0-20.0); Blood Urea Nitrogen 11 mg/dL (9-23); Carbon Dioxide 23 mmol/L (20-31); Chloride 102 mmol/L (98-107); Total Protein 5.8 g/dL (5.7-8.2)
[2025-06-27 07:18] LABS: Albumin 3.2 g/dL (3.2-4.8); Bilirubin, Total 0.6 mg/dL (0.2-1.0)
[2025-06-27 07:19] LABS: Alanine Aminotransferase 60 U/L (7-40); Alkaline Phosphatase 126 U/L (46-116); Calcium 8.3 mg/dL (8.7-10.4); Glucose 180 mg/dL (74-106); Potassium 3.2 mmol/L (3.5-5.1); Sodium 134 mmol/L (136-145)
--- NOTE | 2025-06-27 11:59 | DVHPN2 ---
Subjective The patient is seen and examined at bedside. No complaint today. Stated that she feels better. She can move her arm right now without severe pain. Per daughter her wound is soaked wet and she wants to change dressing to see what is going on in the wound. Reviewed: Care Plan, H&P, Labs, Medications Changes from previous H/P or p: No Changes Objective Vitals Vital Signs Date Time Temp Pulse Resp B/P (MAP) Pulse Ox O2 Delivery O2 Flow Rate FiO2 06/27/25 08:20 98.5 64 17 97/64 (75) 97 98.5 06/27/25 08:00 Room Air* 0 21 Intake/Output Intake and Output 06/27/25 07:00 Intake Total 2294 ml Balance 2294 ml Intake Oral 1994 ml IV Total 300 ml # Voids 5 General Appearance: Alert, Oriented X3, Cooperative, No acute distress HEENT: Atraumatic, PERRLA, EOMI, Mucous membr. moist/pink Medications Current Medications Medications Dose Ordered Sig/Hector Route Start Time Stop Time Status Last Admin Dose Admin Sodium Chloride 10 ml Q8HR IV 06/25/25 22:00 06/27/25 06:11 10 ML Docusate Sodium 100 mg BIDPRN PRN PO 06/25/25 16:45 Acetaminophen 650 mg Q6HP PRN PO 06/25/25 16:45 06/26/25 06:31 650 MG Acetaminophen/ Hydrocodone Bitart 1 tab Q4HP PRN PO 06/25/25 16:45 06/27/25 11:54 1 TAB Ondansetron HCl 4 mg Q4HP PRN IV 06/25/25 16:45 06/27/25 04:50 4 MG Piperacillin Sod/ Tazobactam Sod 100 ml @ 25 mls/hr Q8HR IV 06/25/25 22:00 06/27/25 06:21 25 MLS/HR Vancomycin HCl 0 ml @ 0 mls/hr UD IV 06/25/25 16:45 Diagnostic Test (Pha) 1 strip ACHS 06/25/25 17:00 06/27/25 06:12 1 STRIP Insulin Human Regular HS SC 06/25/25 22:00 06/26/25 22:00 4 UNITS Insulin Human Regular AC SC 06/25/25 17:00 06/27/25 06:23 2 UNITS Dextrose 50 ml UD PRN IV 06/25/25 17:00 Vancomycin HCl 100 ml @ 100 mls/hr Q12H IV 06/25/25 18:00 06/27/25 06:21 100 MLS/HR Hydralazine HCl 10 mg Q6HP PRN IV 06/25/25 17:15 Morphine Sulfate 2 mg Q4HPRN PRN IV 06/26/25 10:30 06/26/25 18:47 2 MG Laboratory Results Laboratory Tests 06/27/25 06:30 Chemistry Test 06/27/25 06:30 Albumin 3.2 g/dL (3.2-4.8) Calcium Level 8.3 mg/dL (8.7-10.4) L Total Protein 5.8 g/dL (5.7-8.2) LFT Test 06/27/25 06:30 Alanine Aminotransferase (ALT) 60 U/L (7-40) H Alkaline Phosphatase 126 U/L (46-116) H Aspartate Amino Transferase (AST) 59 U/L (13-40) H Total Bilirubin 0.6 mg/dL (0.2-1.0) HgA1c, TSH Test 06/27/25 06:30 Hemoglobin A1c 13.8 % A1C (<5.7) H Urinalysis Test 06/26/25 12:31 Urine Color Yellow (Yellow) Urine Clarity Clear (Clear) Urine pH 6.0 (5.0-9.0) Urine Specific [place] 1.018 (1.001-1.035) Urine Protein Negative (Negative) Urine Ketones Negative (Negative) Urine Blood Negative /uL (Negative) Urine Nitrite Negative (Negative) Urine Bilirubin Negative (Negative) Urine Urobilinogen Normal mg/dL (Negative) Urine Leukocyte Esterase Trace /uL (Negative) Urine RBC 4 /hpf (0 - 4) Urine Microscopic WBC 4 /HPF (0-5) Urine Squamous Epithelial Cells Few /hpf (<5) Urine Bacteria Few /hpf (None Seen) H Urine Glucose 4+ mg/dL (Normal) H Microbiology Microbiology Date/Time Source Procedure Growth Status 06/25/25 13:48 Blood Blood Culture - Preliminary Staphylococcus aureus Resulted 06/25/25 13:25 Elbow Right Gram Stain Pending Resulted 06/25/25 13:25 Elbow Right Wound Culture - Preliminary Resulted Labs and/or images reviewed: Labs reviewed by me Assessment/Plan Assessment/Plan #1 right elbow infection with sepsis: iv vanc, zosyn, ortho eval, status post I and D #2 dm- new onset: ssi #3 h/o RA #4 obesity #5 transaminitis Continuing current management. Continuing with pain medication. Continuing with wound care. We will follow up with culture This medical document was created using an electronic medical record system with [employer] direct computerized dictation system. Although this document has been carefully reviewed, there may still be some phonetic and typographical errors. These areas are purely typographical due to imperfections of the software programs, and do not reflect any compromise in the patient's medical care. Plan discussed with: Patient, Daughter Date of Service: Jun 27, 2025 Billing Provider: HARLEY MONTGOMERY MD Common Visit Codes: [id number] INP/OBS CARE(HIGH) HARLEY MONTGOMERY MD Jun 27, 2025 11:59
[2025-06-27] MEDS: VANCOMYCIN 500mg/100mL 100 ML IV ONE (18:35)
[2025-06-28] VITALS (7 sets, daily range): BP systolic 96–139; BP diastolic 61–87; PULSE 63–80; RESP 16–19; TEMP 98.2–98.4; O2SAT 92–99
[2025-06-28 05:24] LABS: Hematocrit 42.6 % (36.0-46.0); Hemoglobin 14.3 g/dL (12.2-16.2); Mean Corpuscular Hemoglobin 32.1 pg (28.0-32.0); Mean Corpuscular Volume 95.8 fL (80.0-100.0); Nucleated Red Blood Cells % 0.1 %
[2025-06-28] MEDS: VANCOMYCIN 1.25GM/250ML 250 ML IV SCH (05:35)
--- NOTE | 2025-06-28 15:18 | DVHPN2 ---
Subjective The patient is seen and examined at bedside. She feels better today. No fever or chills. Reviewed: Care Plan, H&P, Labs, Medications, Previous Orders, Radiology Changes from previous H/P or p: No Changes Objective Vitals Vital Signs Date Time Temp Pulse Resp B/P (MAP) Pulse Ox O2 Delivery O2 Flow Rate FiO2 06/28/25 08:00 Room Air* 0 21 06/28/25 05:00 98.3 66 16 113/74 (87) 97 98.3 Intake/Output Intake and Output 06/28/25 07:00 Intake Total 1598 ml Balance 1598 ml Intake Oral 1398 ml IV Total 200 ml # Voids 5 # Bowel Movements 4 General Appearance: Alert, Oriented X3, Cooperative, No acute distress HEENT: Atraumatic, PERRLA, EOMI, Mucous membr. moist/pink Neck: Supple Lungs: Clear to auscultation, Normal air movement Cardiovascular: Regular rate, Normal S1, Normal S2, No murmurs, Gallops, Rubs Abdomen: Normal bowel sounds, Soft, No tenderness, No hepatospenomegaly Neuro: Cranial nerves 3-12 NL Psych/Mental Status: Mental status NL Medications Current Medications Medications Dose Ordered Sig/Hector Route Start Time Stop Time Status Last Admin Dose Admin Sodium Chloride 10 ml Q8HR IV 06/25/25 22:00 06/28/25 05:35 10 ML Docusate Sodium 100 mg BIDPRN PRN PO 06/25/25 16:45 Acetaminophen 650 mg Q6HP PRN PO 06/25/25 16:45 06/28/25 12:35 650 MG Acetaminophen/ Hydrocodone Bitart 1 tab Q4HP PRN PO 06/25/25 16:45 06/28/25 06:01 1 TAB Ondansetron HCl 4 mg Q4HP PRN IV 06/25/25 16:45 06/27/25 04:50 4 MG Piperacillin Sod/ Tazobactam Sod 100 ml @ 25 mls/hr Q8HR IV 06/25/25 22:00 06/28/25 05:35 25 MLS/HR Vancomycin HCl 0 ml @ 0 mls/hr UD IV 06/25/25 16:45 Diagnostic Test (Pha) 1 strip ACHS 06/25/25 17:00 06/28/25 12:49 1 STRIP Insulin Human Regular HS SC 06/25/25 22:00 06/27/25 22:46 6 UNITS Insulin Human Regular AC SC 06/25/25 17:00 06/28/25 12:49 9 UNITS Dextrose 50 ml UD PRN IV 06/25/25 17:00 Hydralazine HCl 10 mg Q6HP PRN IV 06/25/25 17:15 Morphine Sulfate 2 mg Q4HPRN PRN IV 06/26/25 10:30 06/26/25 18:47 2 MG Vancomycin HCl 250 ml @ 200 mls/hr Q12H IV 06/28/25 06:00 06/28/25 05:35 200 MLS/HR Laboratory Results Laboratory Tests 06/27/25 06:30 06/28/25 04:31 Urinalysis Test 06/26/25 12:31 Urine Color Yellow (Yellow) Urine Clarity Clear (Clear) Urine pH 6.0 (5.0-9.0) Urine Specific [place] 1.018 (1.001-1.035) Urine Protein Negative (Negative) Urine Ketones Negative (Negative) Urine Blood Negative /uL (Negative) Urine Nitrite Negative (Negative) Urine Bilirubin Negative (Negative) Urine Urobilinogen Normal mg/dL (Negative) Urine Leukocyte Esterase Trace /uL (Negative) Urine RBC 4 /hpf (0 - 4) Urine Microscopic WBC 4 /HPF (0-5) Urine Squamous Epithelial Cells Few /hpf (<5) Urine Bacteria Few /hpf (None Seen) H Urine Glucose 4+ mg/dL (Normal) H Microbiology Microbiology Date/Time Source Procedure Growth Status 06/27/25 06:30 Blood Blood Culture - Preliminary NO GROWTH AFTER 24 HOURS OF INCUBATION. Resulted 06/25/25 13:25 Elbow Right Gram Stain - Final Resulted 06/25/25 13:25 Wound Culture - Preliminary Klebsiella oxytoca Staphylococcus aureus Stenotrophomonas maltophilia Resulted Labs and/or images reviewed: Labs reviewed by me Assessment/Plan Assessment/Plan #1 right elbow infection with sepsis: iv vanc, zosyn, ortho eval, status post I and D #2 dm- new onset: ssi #3 h/o RA #4 obesity #5 transaminitis Continuing current management. Continuing with pain medication. Continuing with wound care. We will follow up with culture. We will ask the nurse to change the dressing. This medical document was created using an electronic medical record system with [employer] direct computerized dictation system. Although this document has been carefully reviewed, there may still be some phonetic and typographical errors. These areas are purely typographical due to imperfections of the software programs, and do not reflect any compromise in the patient's medical care. Plan discussed with: Patient, Daughter Date of Service: Jun 28, 2025 Billing Provider: HARLEY MONTGOMERY MD Common Visit Codes: [id number] INP/OBS CARE(HIGH) HARLEY MONTGOMERY MD Jun 28, 2025 15:18
[2025-06-29] VITALS (7 sets, daily range): BP systolic 113–140; BP diastolic 67–89; PULSE 65–87; RESP 16–20; TEMP 97.8–98.7; O2SAT 96–99
--- NOTE | 2025-06-29 13:09 | DVHPN2 ---
Subjective The patient is seen and examined at bedside. No complaint today. Feel better. No fever or chill. Reviewed: Care Plan, H&P, Labs, Medications, Previous Orders, Radiology Changes from previous H/P or p: No Changes Objective Vitals Vital Signs Date Time Temp Pulse Resp B/P (MAP) Pulse Ox O2 Delivery O2 Flow Rate FiO2 06/29/25 13:06 98.1 65 17 134/85 (101) 96 98.1 06/29/25 08:00 Room Air* 0 21 Intake/Output Intake and Output 06/29/25 07:00 Intake Total 1740 ml Balance 1740 ml Intake Oral 1290 ml IV Total 450 ml # Voids 5 # Bowel Movements 1 General Appearance: Alert, Oriented X3, Cooperative, No acute distress HEENT: Atraumatic, PERRLA, EOMI, Mucous membr. moist/pink Neck: Supple Lungs: Clear to auscultation, Normal air movement Cardiovascular: Regular rate, Normal S1, Normal S2, No murmurs, Gallops, Rubs Abdomen: Normal bowel sounds, Soft, No tenderness Neuro: Cranial nerves 3-12 NL Psych/Mental Status: Mental status NL Medications Current Medications Medications Dose Ordered Sig/Hector Route Start Time Stop Time Status Last Admin Dose Admin Sodium Chloride 10 ml Q8HR IV 06/25/25 22:00 06/29/25 06:03 10 ML Docusate Sodium 100 mg BIDPRN PRN PO 06/25/25 16:45 Acetaminophen 650 mg Q6HP PRN PO 06/25/25 16:45 06/28/25 20:22 650 MG Acetaminophen/ Hydrocodone Bitart 1 tab Q4HP PRN PO 06/25/25 16:45 06/29/25 11:14 1 TAB Ondansetron HCl 4 mg Q4HP PRN IV 06/25/25 16:45 06/27/25 04:50 4 MG Piperacillin Sod/ Tazobactam Sod 100 ml @ 25 mls/hr Q8HR IV 06/25/25 22:00 06/28/25 21:26 25 MLS/HR Vancomycin HCl 0 ml @ 0 mls/hr UD IV 06/25/25 16:45 Diagnostic Test (Pha) 1 strip ACHS 06/25/25 17:00 06/29/25 11:14 1 STRIP Insulin Human Regular HS SC 06/25/25 22:00 06/28/25 21:30 10 UNITS Insulin Human Regular AC SC 06/25/25 17:00 06/29/25 11:13 6 UNITS Dextrose 50 ml UD PRN IV 06/25/25 17:00 Hydralazine HCl 10 mg Q6HP PRN IV 06/25/25 17:15 Morphine Sulfate 2 mg Q4HPRN PRN IV 06/26/25 10:30 06/26/25 18:47 2 MG Vancomycin HCl 250 ml @ 200 mls/hr Q12H IV 06/28/25 06:00 06/29/25 06:45 200 MLS/HR Laboratory Results Laboratory Tests 06/27/25 06:30 06/28/25 04:31 Urinalysis Test 06/26/25 12:31 Urine Color Yellow (Yellow) Urine Clarity Clear (Clear) Urine pH 6.0 (5.0-9.0) Urine Specific [place] 1.018 (1.001-1.035) Urine Protein Negative (Negative) Urine Ketones Negative (Negative) Urine Blood Negative /uL (Negative) Urine Nitrite Negative (Negative) Urine Bilirubin Negative (Negative) Urine Urobilinogen Normal mg/dL (Negative) Urine Leukocyte Esterase Trace /uL (Negative) Urine RBC 4 /hpf (0 - 4) Urine Microscopic WBC 4 /HPF (0-5) Urine Squamous Epithelial Cells Few /hpf (<5) Urine Bacteria Few /hpf (None Seen) H Urine Glucose 4+ mg/dL (Normal) H Microbiology Microbiology Date/Time Source Procedure Growth Status 06/27/25 06:30 Blood Blood Culture - Preliminary NO GROWTH AFTER 48 HOURS OF INCUBATION. Resulted 06/25/25 13:25 Elbow Right Gram Stain - Final Resulted 06/25/25 13:25 Wound Culture - Preliminary Klebsiella oxytoca Staphylococcus aureus Stenotrophomonas maltophilia Resulted Labs and/or images reviewed: Labs reviewed by me Assessment/Plan Assessment/Plan #1 right elbow infection with sepsis: iv vanc, zosyn, ortho eval, status post I and D #2 dm- new onset: ssi #3 h/o RA #4 obesity #5 transaminitis #6 Bacteremia with staph aureus Continuing current management. Continuing with pain medication. Continuing with wound care. We will follow up with culture. So far the 2nd blood culture showed no growth. Wound culture show multiple bacterial with Staph aureus, Klebsiella oxytoca, Stenotrophomonas Maltophilia This medical document was created using an electronic medical record system with [employer] direct computerized dictation system. Although this document has been carefully reviewed, there may still be some phonetic and typographical errors. These areas are purely typographical due to imperfections of the software programs, and do not reflect any compromise in the patient's medical care. Plan discussed with: Patient Date of Service: Jun 29, 2025 Billing Provider: HARLEY MONTGOMERY MD Common Visit Codes: [id number] INP/OBS CARE(HIGH) HARLEY MONTGOMERY MD Jun 29, 2025 13:09
[2025-06-29] MEDS: VANCOMYCIN 1GM/250ML KIT 250 ML IV SCH (19:59)
[2025-06-30 01:20] VITALS: BP 121/71; PULSE 67; RESP 16; TEMP 97.9; O2SAT 92
[2025-06-30 05:16] VITALS: BP 121/74; PULSE 65; RESP 17; TEMP 98.2; O2SAT 95
[2025-06-30 06:43] LABS: Hematocrit 40.9 % (36.0-46.0); Hemoglobin 13.9 g/dL (12.2-16.2); Mean Corpuscular Hemoglobin 32.4 pg (28.0-32.0); Mean Corpuscular Volume 95.5 fL (80.0-100.0); Nucleated Red Blood Cells % 0.1 %
[2025-06-30 08:00] VITALS: PULSE 78; RESP 18; O2SAT 98
[2025-06-30 08:52] VITALS: BP 112/72; PULSE 67; RESP 17; TEMP 98.3; O2SAT 94
[2025-06-30 09:48] LABS: Chloride 103 mmol/L (98-107); Potassium 3.5 mmol/L (3.5-5.1); Sodium 136 mmol/L (136-145)
[2025-06-30 09:49] LABS: Anion Gap 11 (5-15)
[2025-06-30 09:51] LABS: Calcium 8.7 mg/dL (8.7-10.4); Carbon Dioxide 22 mmol/L (20-31)
[2025-06-30 10:00] LABS: Glucose 141 mg/dL (74-106)
[2025-06-30] MEDS ORDERED: LEVO500T91 PO (11:35)
[2025-06-30] MEDS ORDERED: HYDR-4902 PO (11:35)
--- NOTE | 2025-06-30 11:41 | DVHDS2 ---
Discharge Summary Date of Admission Jun 25, 2025 at 16:44 Date of Discharge: Jun 30, 2025 Admitting Diagnosis #1 right elbow infection with sepsis: iv vanc, zosyn, ortho eval, #2 dm- new onset: ssi #3 h/o RA #4 obesity #5 transaminitis Labs/Diagnostic Data: Laboratory Results Test 06/30/25 09:10 06/30/25 06:01 06/30/25 05:52 06/29/25 05:54 Sodium Level 136 mmol/L (136-145) Potassium Level 3.5 mmol/L (3.5-5.1) Chloride Level 103 mmol/L (98-107) Carbon Dioxide Level 22 mmol/L (20-31) Anion Gap 11 (5-15) Creatinine 2.74 mg/dL (0.550-1.02) Glomerular Filtration Rate Calc 19 mL/min (>90) Serum Glucose 141 mg/dL (74-106) Calcium Level 8.7 mg/dL (8.7-10.4) Random Vancomycin Level 42.8 ug/mL (5-10) POC Glucose 149 mg/dl (70-106) White Blood Count 7.4 10^3/uL (4.4-10.8) Red Blood Count 4.28 10^6/uL (4.0-5.20) Hemoglobin 13.9 g/dL (12.2-16.2) Hematocrit 40.9 % (36.0-46.0) Mean Corpuscular Volume 95.5 fL (80.0-100.0) Mean Corpuscular Hemoglobin 32.4 pg (28.0-32.0) Mean Corpuscular Hemoglobin Concent 33.9 g/dL (32.0-36.0) Red Cell Distribution Width 13.4 % (11.8-14.3) Platelet Count 153 10^3/uL (140-450) Mean Platelet Volume 9.8 fL (6.9-10.8) Neutrophils (%) (Auto) 69.5 % (37.0-80.0) Lymphocytes (%) (Auto) 20.1 % (10.0-50.0) Monocytes (%) (Auto) 8.5 % (0.0-12.0) Eosinophils (%) (Auto) 1.6 % (0.0-7.0) Basophils (%) (Auto) 0.3 % (0.0-2.0) Neutrophils # (Auto) 5.1 10 ^3/uL (1.6-8.6) Lymphocytes # (Auto) 1.5 10 ^3/uL (0.4-5.4) Monocytes # (Auto) 0.6 10 ^3/uL (0-1.3) Eosinophils # (Auto) 0.1 10 ^3/uL (0-0.8) Basophils # (Auto) 0 10 ^3/uL (0-0.2) Nucleated Red Blood Cells 0.1 % Vancomycin Level Trough 18.8 ug/mL (5-10) Test 06/27/25 06:30 06/26/25 12:31 06/25/25 13:48 06/25/25 13:30 Hemoglobin A1c 13.8 % A1C (<5.7) Total Bilirubin 0.6 mg/dL (0.2-1.0) Aspartate Amino Transferase (AST) 59 U/L (13-40) Alanine Aminotransferase (ALT) 60 U/L (7-40) Alkaline Phosphatase 126 U/L (46-116) Total Protein 5.8 g/dL (5.7-8.2) Albumin 3.2 g/dL (3.2-4.8) Urine Color Yellow (Yellow) Urine Clarity Clear (Clear) Urine pH 6.0 (5.0-9.0) Urine Specific [place] 1.018 (1.001-1.035) Urine Protein Negative (Negative) Urine Ketones Negative (Negative) Urine Blood Negative /uL (Negative) Urine Nitrite Negative (Negative) Urine Bilirubin Negative (Negative) Urine Urobilinogen Normal mg/dL (Negative) Urine Leukocyte Esterase Trace /uL (Negative) Urine RBC 4 /hpf (0 - 4) Urine Microscopic WBC 4 /HPF (0-5) Urine Squamous Epithelial Cells Few /hpf (<5) Urine Bacteria Few /hpf (None Seen) Urine Glucose 4+ mg/dL (Normal) Lactic Acid Level 2.0 mmol/L (0.4-2.0) C-Reactive Protein High Sensitivity 7.50 mg/dL (<1.0) Urine Opiates Screen Neg (NEGATIVE) Urine Fentanyl Screen Neg (NEGATIVE) Urine Barbiturates Screen Neg (NEGATIVE) Urine Phencyclidine Screen Neg (NEGATIVE) Urine Amphetamines Screen Neg (NEGATIVE) Urine Benzodiazepines Screen Neg (NEGATIVE) Urine Cocaine Screen Neg (NEGATIVE) Urine Cannabinoids Screen Neg (NEGATIVE) Other Laboratory Tests 06/30/25 09:10 06/30/25 05:52 Brief Hx & Hospital Course: This is a 60 years old female with no known past medical history come to emergency department because of intractable nausea and vomiting and cellulitis of the right elbow. The patient came to urgent care but unable to treat because of her elevation of blood glucose in the 300. The patient said she did not have any history of diabetes. The patient does have history rheumatoid arthritis but never follow up with anyone. The patient was admitted. The patient was started on IV antibiotic vancomycin and Zosyn. The patient subsequently had I and D at bedside. Orthopedic surgeon see the patient and recommend no further intervention such as surgery. They recommended continuing IV antibiotic and wait for culture. Blood culture showed staph aureus sensitive to vancomycin and Levaquin. Abscess culture showed multiple bacteria such as staph aureus, Klebsiella oxytoca, Stenotrophonomas maltophilia which sensitive to Cipro and Levaquin. The repeat blood culture is negative. I am going to discharge the patient home today with oral antibiotic. Advised the patient to follow up with the primary care physician 1-2 weeks. Follow up with fishing game warden per schedule. Activity as tolerated. Diet per home diet. Recommend carb controlled diet. The patient will need to see the fishing game warden and merchandise coordinator. Physical exam: HEENT: Normocephalic atraumatic pupils equal react to light and accommodation. Extraocular muscles intact, conjunctiva pink, oropharynx moist, no thrush, no exudate. Lymphatic: No lymphadenopathy Cardiovascular exam: S1, S2 was heard. No murmurs, rubs, gallops Lung: Clear on auscultation bilaterally, no wheeze, rale, rhonchi. GI: Abdominal soft, nondistended, nontenderness, positive bowel sounds. Extremity: No crepitus, cyanosis, edema. Pedal pulses present bilateral. Full range of motion. Skin: Normal turgor, no rash. Psych: Alert, oriented x3. Neurology: No focal deficits, cranial nerve II to XII grossly intact. This medical document was created using an electronic medical record system with [employer] direct computerized dictation system. Although this document has been carefully reviewed, there may still be some phonetic and typographical errors. These areas are purely typographical due to imperfections of the software programs, and do not reflect any compromise in the patient's medical care. Condition at Discharge: Stable Final Diagnosis/Problems List #1 right elbow infection with sepsis: iv vanc, zosyn, ortho eval #2 dm- new onset: ssi #3 h/o RA #4 obesity #5 transaminitis #6 Bacteremia with staph aureus Discharge Disposition: Home Discharge Instruct/Medications Diet: Consistent carbohydrate, Cardiac 2g Na,low cholest Activity: No Restrictions, As Tolerated Follow Up/Referral: pcp 1-2 weeks Medications: See med list Levaquin 500mg PO daily Scheduled Levofloxacin Hemihydrate (Levaquin 500 Mg), 1 TAB PO DAILY Scheduled PRN Hydrocodone-Acetaminophen (Hydrocodone Bitartrate/AC 5-325 mg), 1 TAB PO Q4HP PRN Discharge Statement: "Patient was advised to return to the ER or call 911 if any headaches, dizziness, shortness of breath, chest pain, abdominal pain, bleeding, fevers, or worsening of medical condition. Patient was counseled about treatment plan, medications, possible side effects, patientverbalized understanding. All questions were answered to the best of my ability. This discharge took greater then 30 minutes in planning, reviewing documentation, counseling the patient, and discussing with other team members." ASSESSMENT ASSESSMENT Assessment elbow infection Date of Service: Jun 30, 2025 Billing Provider: HARLEY MONTGOMERY MD Common Visit Codes: 50003-UET/OBS DISCH DAY >30min HARLEY MONTGOMERY MD Jun 30, 2025 11:41
[2025-06-30] MEDS: levoFLOXacin 500 MG TAB PO ONE (11:45)
--- NOTE | 2025-06-30 12:18 | MEDREC ---
[facility] Intervention Section I [facility] Intervention: Deescalate AB based on CS (Antibiotics are not typically recommended after I&D, however; due to culture result, bactrim PO for 4 days can be used after I&D) MARKELL MEYERS [facility] RESIDENT Jun 30, 2025 12:18
[2025-06-30 13:30] VITALS: BP 123/77; PULSE 66; RESP 17; TEMP 98.4; O2SAT 95
[2025-06-30 13:40] LABS: BUN/Creatinine Ratio 6.6 (10.0-20.0); Blood Urea Nitrogen 18 mg/dL (9-23)
== END 2025-06-30 14:15 | disposition home or self-care (01) | DRG 720 ==
LOC: ER 12:32 → OVERFLOW 16:44 → EAST 17:52
PROVIDERS: ADMIT Internal Medicine; ATTEND Internal Medicine
PROC: 0X9B0ZZ Drainage of Right Elbow Region, Open Approach (ICD-10-PCS; principal; 2025-06-25)
DX: A41.01 Sepsis due to Methicillin susceptible Staphylococcus aureus (principal); E11.65 Type 2 diabetes mellitus with hyperglycemia; L02.413 Cutaneous abscess of right upper limb; L03.113 Cellulitis of right upper limb; E66.9 Obesity, unspecified; Z68.31 Body mass index [BMI] 31.0-31.9, adult; R74.01 Elevation of levels of liver transaminase levels; M06.9 Rheumatoid arthritis, unspecified; Z83.3 Family history of diabetes mellitus; Z82.61 Family history of arthritis; Z79.4 Long term (current) use of insulin; Z79.899 Other long term (current) drug therapy
CPT/HCPCS: 10060; 36415; 73080; 73200; 73218; 80048; 80053; 80202; 80307; 81001; 82565; 82962; 83036; 83605; 85025; 86141; 87040; 87077; 87186; 87205; G0378; J1815; J2003; J2405; J2543; J3490

== ENCOUNTER 2025-07-06 10:26 | Inpatient (IN) | payer MEDICAID ==
[~2025-07-06] VITALS: Ht 157.5 cm; Wt 77.7 kg
[~2025-07-06 10:26] MED LIST: HYDR-4902 PO; LEVO500T91 PO
--- NOTE | 2025-07-06 10:52 | ECG ---
[facility] Test Date: 2025-07-06 Test Time: 10:47:13 Pat Name: BLACK REYES Department: ED Room: Gender: F Director Of Health Education: douglas : 1965 Requested By: EMERGENCY EMERGENCY Order Number: [id number] Reading MD: Vaughn Calles Measurements Intervals [place] Rate: 68 P: 48 MI: 141 QRS: 57 QRSD: 97 T: 28 QT: 418 QTc: 445 Interpretive Statements Sinus rhythm Atrial premature complex Baseline wander in lead(s) V1 Electronically Signed On 07-06-2025 17:58:22 PDT by Vaughn Calles Please click the below link to view image of tracing.
--- NOTE | 2025-07-06 11:26 | ED.PDOC ---
History of Present Illness HPI Comments 60F presents to the ER w/ prior MHx of a new onset of DM: SHx of , Tubal Ligation and the c/c of generalized weakness. Pt reports on being in the hospital for 5 days last week due from having her abscess drained on her right arm. Pt states that she has had, ABD pain, N/V/D, left sided COLEMAN all lasting for 2 days w/ the pain being a 9/10. In triage the pt had a BS of 107. Denies chills, fever, SOB, CP. Denies any other associated symptom's, modifiers, or recent injuries or sick contact at this time. Chief Complaint: General Weakness Time Seen by MD: 11:10 Reviewed Notes: Nurses Notes, Medications, Allergies Allergies: Coded Allergies: NO KNOWN ALLERGIES (Unverified , 06/25/25) Home Meds Active Scripts Levofloxacin Hemihydrate (LEVAQUIN 500 MG) 500 Mg Tab, 1 TAB PO DAILY, #14 TAB Prov:HARLEY MONTGOMERY MD 06/30/25 Hydrocodone-Acetaminophen (Hydrocodone Bitartrate/AC 5-325 mg) 1 Tab Tab, 1 TAB PO Q4HP PRN, #30 TAB Prov:HARLEY MONTGOMERY MD 06/30/25 Information Source: Patient Mode of Arrival: Ambulatory Severity: Moderate Timing: Days Duration: Since onset Prehospital treatment: None Past Medical History PAST MEDICAL HISTORY: DM (New Onset) Surgical History: , Tubal Ligation GLOBAL CLIMATE CHANGE ANALYST History: No Pertinent GLOBAL CLIMATE CHANGE ANALYST History Family History Family History: Reviewed,noncontributory to illness, Unknown Social History Smoker: Non-Smoker Alcohol: Denies ETOH Use Drugs: Denies Drug Use Lives In: Home Constitutional: reports: weakness; denies: chills, diaphoresis, fatigue, fever, malaise, sweats, others EENTM: denies: blurred vision, double vision, ear bleeding, ear discharge, ear drainage, ear pain, ear ringing, eye pain, eye redness, hearing loss, mouth pain, mouth swelling, nasal discharge, nose bleeding, nose congestion, nose pain, photophobia, tearing, throat pain, throat swelling, voice changes, others Respiratory: denies: cough, hemoptysis, orthopnea, SOB at rest, shortness of breath, SOB with excertion, stridor, wheezing, others Cardiovascular: denies: chest pain, dizzy spells, diaphoresis, Dyspnea on exertion, edema, irregular heart beat, left arm pain, lightheadedness, palpitations, PND, syncope, others Gastrointestinal: reports: abdominal pain, diarrhea, nausea, vomiting; denies: abdomen distended, blood streaked bowels, constipated, dysphagia, difficulty swallowing, hematemesis, melena, poor appetite, poor fluid intake, rectal bleeding, rectal pain, others Genitourinary: denies: abnormal vagina bleeding, burning, dyspareunia, dysuria, flank pain, frequency, hematuria, incontinence, pain, , vagina discharge, urgency, others Neurological: reports: headache; denies: dizziness, fainting, left sided numbness, left sided weakness, numbness, paresthesia, pre-existing deficit, right sided numbness, right sided weakness, seizure, speech problems, tingling, tremors, weakness, others Musculoskeletal: denies: back pain, gout, joint pain, joint swelling, muscle pain, muscle stiffness, neck pain, others Integumetry: denies: bruises, change in color, change in hair/nails, dryness, laceration, lesions, lumps, rash, wounds, others Allergic/Immunocompromised: denies: Difficulty Healing, Frequent Infections, Hives, Itching, others Hematologic/Lymphatic: denies: anemia, blood clots, easy bleeding, easy bruising, swollen glands, others Endocrine: denies: excessive hunger, excessive sweating, excessive thirst, excessive urination, flushing, intolerance to cold, intolerance to heat, unexplained weight gain, unexplained weight loss, others Psychiatric: denies: anxiety, bipolar disorder, depression, hopeless, panic disorder, schizophrenia, sleepless, suicidal, others All Other Systems: Reviewed and Negative Physical Exam General Appearance: Moderate Distress HEENT: Pale Conjuntivae (L), Pale Conjuntivae (R), Pharynx Normal, TMs Normal Neck: Full Range of Motion, Non-Tender, Normal, Normal Inspection Respiratory: Chest Non-Tender, Lungs Clear, No Accessory Muscle Use, No Respiratory Distress, Normal Breath Sounds Cardiovascular: No Edema, No JVD, No Murmur, No Gallop, Normal Peripheral Pulses, Regular Rate/Rhythm Breast Exam: Deferred Gastrointestinal: No Organomegaly, Non Tender, No Pulsatile Mass, Normal Bowel Sounds, Soft Genitalia: Deferred Pelvic: Deferred Rectal: Deferred Extremities: No calf tenderness, Normal capillary refill, No pedal edema Musculoskeletal : Apperance: Normal Neurologic: bundling machine operator II-XII nml as Tested, Motor Weakness, Normal Affect, Normal Mood, No Sensory Deficits Cerebellar Function: Normal Reflexes: Normal Skin: Dry, Pallor, Warm Lymphatic: No Adenopathy Was a procedure done? Was a procedure done?: No Differential Dx Considerations may include: Generalized weakness, electrolyte imbalance, dehydration X-Ray, Labs, Meds, VS Vital Signs Date Time Temp Pulse Resp B/P (MAP) Pulse Ox O2 Delivery O2 Flow Rate FiO2 07/06/25 10:47 68 07/06/25 10:30 98.8 76 18 132/85 98 98.8 Lab Test 07/06/25 13:31 07/06/25 13:06 Range/Units Urine Color Colorless Yellow Urine Clarity Clear Clear Urine pH 6.0 5.0-9.0 Urine Specific [place] 1.006 1.001-1.035 Urine Protein Negative Negative Urine Ketones Negative Negative Urine Blood Negative Negative /uL Urine Nitrite Negative Negative Urine Bilirubin Negative Negative Urine Urobilinogen Normal Negative mg/dL Urine Leukocyte Esterase Negative Negative /uL Urine RBC None seen 0 - 4 /hpf Urine Microscopic WBC 3 0-5 /HPF Urine Squamous Epithelial Cells Few <5 /hpf Urine Bacteria None seen None Seen /hpf Urine Glucose Normal Normal mg/dL White Blood Count 11.0 #H 4.4-10.8 10^3/uL Red Blood Count 4.05 4.0-5.20 10^6/uL Hemoglobin 13.2 12.2-16.2 g/dL Hematocrit 38.7 36.0-46.0 % Mean Corpuscular Volume 95.6 80.0-100.0 fL Mean Corpuscular Hemoglobin 32.6 H 28.0-32.0 pg Mean Corpuscular Hemoglobin Concent 34.1 32.0-36.0 g/dL Red Cell Distribution Width 13.6 11.8-14.3 % Platelet Count 187 140-450 10^3/uL Mean Platelet Volume 9.0 6.9-10.8 fL Neutrophils (%) (Auto) 73.7 37.0-80.0 % Lymphocytes (%) (Auto) 17.2 10.0-50.0 % Monocytes (%) (Auto) 7.3 0.0-12.0 % Eosinophils (%) (Auto) 1.4 0.0-7.0 % Basophils (%) (Auto) 0.4 0.0-2.0 % Neutrophils # (Auto) 8.1 1.6-8.6 10 ^3/uL Lymphocytes # (Auto) 1.9 0.4-5.4 10 ^3/uL Monocytes # (Auto) 0.8 0-1.3 10 ^3/uL Eosinophils # (Auto) 0.2 0-0.8 10 ^3/uL Basophils # (Auto) 0 0-0.2 10 ^3/uL Nucleated Red Blood Cells 0.0 % Sodium Level 138 136-145 mmol/L Potassium Level 3.5 3.5-5.1 mmol/L Chloride Level 105 98-107 mmol/L Carbon Dioxide Level 21 20-31 mmol/L Anion Gap 12 5-15 Blood Urea Nitrogen 33 H 9-23 mg/dL Creatinine 3.92 #H 0.550-1.02 mg/dL Glomerular Filtration Rate Calc 13 >90 mL/min BUN/Creatinine Ratio 8.4 L 10.0-20.0 Serum Glucose 84 74-106 mg/dL Calcium Level 9.3 8.7-10.4 mg/dL Current Medications Medications (Trade) Dose Ordered Sig/Hector Route Start Time Stop Time Status Last Admin Sodium Chloride 500 ml @ 500 mls/hr Q1H ONCE IV 07/06/25 11:30 07/06/25 12:29 DC 07/06/25 12:13 The CBC shows an elevated white blood cell count of 11.0 The rest of the CBC is within normal limits The chemistry panel shows a BUN of 33 and a creatinine of 3.92 The patient had an IV Hep-Lock established and was given normal saline at a 500 cc bolus. The patient is being admitted at this time. Time of 1ST Reevaluation: 11:40 Reevaluation 1ST: Unchanged Patient Education/Counseling: Diagnosis, Treatment, Prognosis Family Education/Counseling: No Family Present SEPSIS Sepsis Screen Date sepsis recognized/suspect: Jul 06, 2025 Time Sepsis recognized/suspect: 1032 Recent Procedure: No On Antibiotic Therapy: No Respiratory Rate >20: No Heart Rate >90: No Temp<36 C (96.8 F) or >38.3 C: No SBP <90 or MAP <65 mmHG: No New Acute Mental Status Change: No Is the patient on CPAP, BIPAP,: No Physician Orders Heplock Iv (07/06/25 11:17) Wad Blanking Press Adjuster (07/06/25 11:17) Blood Pressure (07/06/25 11:17) Pulse Oximetry (07/06/25 11:17) Vital Signs Date Time Temp Pulse Resp B/P (MAP) Pulse Ox O2 Delivery O2 Flow Rate FiO2 07/06/25 10:47 68 07/06/25 10:30 98.8 76 18 132/85 98 98.8 Laboratory Tests Test 07/06/25 13:06 White Blood Count 11.0 10^3/uL (4.4-10.8) #H Medications Medications Dose Ordered Sig/Hector Route Start Time Stop Time Status Last Admin Dose Admin Sodium Chloride 500 ml @ 500 mls/hr Q1H ONCE IV 07/06/25 11:30 07/06/25 12:29 DC 07/06/25 12:13 Departure 1 Departure Time of Disposition: 17:26 Impression: Primary Impression: Autonomic dysfunction Additional Impression: Renal disease Disposition: ADMITTED INPATIENT Admit to: Med Surg Condition: Fair Critical Care Note Critical Care Time?: No Stability Stability form required: Yes Unstable for transfer: ED Physician Assesment (Clinical assesment) Heart Score Heart Score: Heart Score Response (Comments) Value History N/A 0 EKG N/A 0 Age N/A 0 Risk Factors N/A 0 Troponin N/A 0 Total 0 I personally scribed for HAIDER CARO MD ([email or web address]) on 07/06/25 at 11:26. Electronically submitted by Lemuel Neil ([email or web address]). HAIDER CARO MD Jul 06, 2025 11:26
[2025-07-06] MEDS: SODIUM CHLORIDE 0.9% 500 ML IV ONE (12:13)
[2025-07-06 13:25] LABS: Hematocrit 38.7 % (36.0-46.0); Hemoglobin 13.2 g/dL (12.2-16.2); Mean Corpuscular Hemoglobin 32.6 pg (28.0-32.0); Mean Corpuscular Volume 95.6 fL (80.0-100.0); Nucleated Red Blood Cells % 0.0 %
[2025-07-06 13:26] LABS: Chloride 105 mmol/L (98-107); Potassium 3.5 mmol/L (3.5-5.1); Sodium 138 mmol/L (136-145)
[2025-07-06 13:27] LABS: Anion Gap 12 (5-15); Calcium 9.3 mg/dL (8.7-10.4); Carbon Dioxide 21 mmol/L (20-31)
[2025-07-06 13:32] LABS: BUN/Creatinine Ratio 8.4 (10.0-20.0); Blood Urea Nitrogen 33 mg/dL (9-23); Glucose 84 mg/dL (74-106)
[2025-07-06 15:52] LABS: Urine Protein, UAD Negative (Negative)
[2025-07-06] MEDS ORDERED: ACETAMINOPHEN 325 MG TAB PO PRN (23:00)
[2025-07-06] MEDS ORDERED: DOCUSATE SOD 100 MG CAP PO PRN (23:00)
[2025-07-06] MEDS: SODIUM CHLORIDE 0.9% 1,000 ML IV SCH (23:48)
[2025-07-07] VITALS (7 sets, daily range): BP systolic 108–149; BP diastolic 47–96; PULSE 57–76; RESP 16–20; TEMP 97.8–98.8; O2SAT 92–99
[2025-07-07] MEDS: HYDROcodone-ACET 5/325MG TAB PO PRN (01:50)
[2025-07-07] MEDS: ONDANSETRON HCL 4 MG/2 ML VIAL IV PRN (01:51)
[2025-07-07 01:57] LABS: Hematocrit 39.3 % (36.0-46.0); Hemoglobin 13.4 g/dL (12.2-16.2); Mean Corpuscular Hemoglobin 32.4 pg (28.0-32.0); Mean Corpuscular Volume 94.8 fL (80.0-100.0); Nucleated Red Blood Cells % 0.0 %
[2025-07-07 02:14] LABS: INR 1.08 (0.9-1.15); Partial Thromboplastin Time 27.4 SEC (24.5-34.5); Prothrombin Time 11.4 sec (9.3-11.8)
[2025-07-07] MEDS ORDERED: DEXTROSE (50%) 50ML SYRG IV PRN (02:15)
[2025-07-07 02:35] LABS: Alanine Aminotransferase 36 U/L (7-40); Albumin 3.8 g/dL (3.2-4.8); Alkaline Phosphatase 177 U/L (46-116); Anion Gap 10 (5-15); BUN/Creatinine Ratio 8.8 (10.0-20.0); Bilirubin, Total 0.5 mg/dL (0.2-1.0); Blood Urea Nitrogen 34 mg/dL (9-23); Calcium 9.2 mg/dL (8.7-10.4); Carbon Dioxide 22 mmol/L (20-31); Chloride 107 mmol/L (98-107); Glucose 101 mg/dL (74-106); Potassium 4.2 mmol/L (3.5-5.1); Sodium 139 mmol/L (136-145); Total Protein 7.2 g/dL (5.7-8.2)
[2025-07-07 02:54] LABS: Magnesium 1.8 mg/dL (1.6-2.6)
[2025-07-07 02:56] LABS: Creatine Kinase IFCC 22.0 U/L (34-145)
[2025-07-07 03:43] LABS: Bilirubin, Direct 0.2 mg/dL (<0.3)
[2025-07-07 04:01] LABS: Uric Acid 7.6 mg/dL (3.1-7.8)
[2025-07-07] MEDS: ACCU-CHEK COMFORT CURVE STRIP VI SCH (06:00)
[2025-07-07] MEDS: InsuLIN REG 1unit/0.01ml Soln (100units/ml) SC SCH (06:00)
[2025-07-07 06:08] LABS: Protein, Urine 13.5 mg/dL (1-14)
[2025-07-07 06:10] LABS: Opiate Scree,Urine Neg (NEGATIVE); Phencyclidine Screen, Urine Neg (NEGATIVE)
[2025-07-07 06:15] LABS: Amphetamine Screen, Urine Neg (NEGATIVE); Barbiturate Scree,Urine Neg (NEGATIVE); Benzodiazephine Screen, Urine Neg (NEGATIVE); Cannabinoid Screen, Urine Neg (NEGATIVE); Cocaine Screen, Urine Neg (NEGATIVE)
--- NOTE | 2025-07-07 06:24 | DVHHPRES ---
History of Present Illness Resident Creating Document: CONNIE CHRISTIE RESIDENT History of Present Illness the Patient is a 60-year-old female with past medical history of new onset diabetes mellitus came to the ED with chief complaints of generalized weakness, nausea, vomiting, diarrhea, headaches since 3 days. Patient was recently admitted for a soft tissue infection abscess which was drained on the right elbow. Patient states that since 3 days she had vomited every day 1 time which was nonbloody, associated with nausea and diarrhea. The diarrhea has stopped after coming to the hospital. Patient also complains of mild right shoulder pain, dizziness when she gets up since 4 days. Patient denies any weakness in her proximal muscles, denies any rashes, sick contacts, travel. Romberg test was negative. Liver ultrasound, kidney ultrasound is placed. Patient started on IV ampicillin sulbactam. Nephrology was consulted for worsening renal function. Surgical history: , tubal ligation Family history: Noncontributory Personal history: Patient denies any alcohol use, smoking, drug use Lives with: Family Review of Systems Constitutional: Yes: Weakness; No: Fever, Chills, Sweats, Malaise, Other ENT: No: Ear pain, Ear discharge, Nose pain, Nose discharge, Nose congestion, Mouth pain, Mouth swelling, Throat pain, Throat swelling, Other Respiratory: No: Cough, Dry, Shortness of breath, SOB with excertion, Wheezing, Hemoptysis, Pleuritic Pain, Sputum, Wheezing, Other Cardiovascular: No: Chest Pain, Palpitations, Orthopnea, Paroxysmal Noc. Dyspnea, Edema, Lt Headedness, Other Gastrointestinal: Nausea, Vomiting, Diarrhea; No: Abdominal Pain, Constipation, Melena, Hematochezia, Other Genitourinary: No Dysuria, No Frequency, No Incontinence, No Hematuria, No Retention, No Other Musculoskeletal: No: other, neck pain, shoulder pain, arm pain, back pain, hand pain, leg pain, foot pain Skin: No: Rash, Lesions, Jaundice, Bruising, Other Neurological: No: Weakness, Numbness, Incoordination, Change in speech, Confusion, Seizures, Other Allergies: Coded Allergies: NO KNOWN ALLERGIES (Unverified , 06/25/25) Medications Current Medications Medications Dose Ordered Sig/Hector Route Start Time Stop Time Status Last Admin Dose Admin Sodium Chloride 1,000 ml @ 60 mls/hr [id number] IV 07/06/25 23:00 Ondansetron HCl 4 mg Q4HP PRN IV 07/06/25 23:00 07/07/25 01:51 4 MG Docusate Sodium 100 mg BIDPRN PRN PO 07/06/25 23:00 Diagnostic Test (Pha) 1 strip Q6HR 07/07/25 06:00 Insulin Human Regular Q6HR SC 07/07/25 06:00 Dextrose 50 ml UD PRN IV 07/07/25 02:15 Ampicillin Sodium/ Sulbactam Sodium 3 gm/Sodium Chloride 100 ml @ 100 mls/hr Q24H IV 07/08/25 10:00 Tramadol HCl 50 mg Q4HP PRN PO 07/07/25 02:45 Heparin Sodium (Porcine) 5,000 units Q12HR SC 07/07/25 10:00 Exam Vital Signs Vital Signs Date Time Temp Pulse Resp B/P (MAP) Pulse Ox O2 Delivery O2 Flow Rate FiO2 07/07/25 02:34 97.8 76 18 123/73 (90) 95 97.8 07/07/25 01:41 Room Air* 0 21 Exam General: Patient alert and oriented in person, place and time. Patient following commands. In mild distress HEENT: Normocephalic, atraumatic, moist mucous membranes mild right shoulder tenderness Respiratory/pulmonary: Clear lungs bilaterally, vesicular murmurs present in almost all lung ruiz, no associated crackles or wheezes. Cardiovascular: Normal heart sounds S1 and S2 with no associated murmurs Abdomen: Abdomen nondistended, there is no pain to palpation in any of the abdominal quadrants, no palpable masses. Extremities: bilateral 1+ pitting edema Peripheral Pulses: 3+ Radial (R). 3+ Radial (L). 3+ Dorsalis pedis (R). 3+ Dorsalis pedis(L) Skin: No rashes or pruritus, there is no sacral edema present at this time. Neurological: Intact cranial nerves with no focal neurologic deficits, Romberg test negative Psych/mood: Normal mood, psych Labs/Xrays Labs Test 07/07/25 05:21 07/07/25 04:22 07/07/25 01:50 07/07/25 01:45 Range/Units Lactic Acid Level 1.2 0.4-2.0 mmol/L Ammonia 12 11-32 umol/L POC Glucose 103 70-106 mg/dl White Blood Count 8.4 4.4-10.8 10^3/uL Red Blood Count 4.15 4.0-5.20 10^6/uL Hemoglobin 13.4 12.2-16.2 g/dL Hematocrit 39.3 36.0-46.0 % Mean Corpuscular Volume 94.8 80.0-100.0 fL Mean Corpuscular Hemoglobin 32.4 H 28.0-32.0 pg Mean Corpuscular Hemoglobin Concent 34.2 32.0-36.0 g/dL Red Cell Distribution Width 14.0 11.8-14.3 % Platelet Count 203 140-450 10^3/uL Mean Platelet Volume 8.4 6.9-10.8 fL Neutrophils (%) (Auto) 70.1 37.0-80.0 % Lymphocytes (%) (Auto) 19.1 10.0-50.0 % Monocytes (%) (Auto) 7.9 0.0-12.0 % Eosinophils (%) (Auto) 2.3 0.0-7.0 % Basophils (%) (Auto) 0.6 0.0-2.0 % Neutrophils # (Auto) 5.9 1.6-8.6 10 ^3/uL Lymphocytes # (Auto) 1.6 0.4-5.4 10 ^3/uL Monocytes # (Auto) 0.7 0-1.3 10 ^3/uL Eosinophils # (Auto) 0.2 0-0.8 10 ^3/uL Basophils # (Auto) 0 0-0.2 10 ^3/uL Nucleated Red Blood Cells 0.0 % Prothrombin Time 11.4 9.3-11.8 sec Prothrombin Time INR 1.08 0.9-1.15 Activated Partial Thromboplast Time 27.4 24.5-34.5 SEC Sodium Level 139 136-145 mmol/L Potassium Level 4.2 3.5-5.1 mmol/L Chloride Level 107 98-107 mmol/L Carbon Dioxide Level 22 20-31 mmol/L Anion Gap 10 5-15 Blood Urea Nitrogen 34 H 9-23 mg/dL Creatinine 3.88 H 0.550-1.02 mg/dL Glomerular Filtration Rate Calc 13 >90 mL/min BUN/Creatinine Ratio 8.8 L 10.0-20.0 Serum Glucose 101 74-106 mg/dL Uric Acid 7.6 3.1-7.8 mg/dL Calcium Level 9.2 8.7-10.4 mg/dL Phosphorus Level 4.6 2.4-5.1 mg/dL Magnesium Level 1.8 1.6-2.6 mg/dL Total Bilirubin 0.5 0.2-1.0 mg/dL Direct Bilirubin 0.2 <0.3 mg/dL Aspartate Amino Transferase (AST) 63 H 13-40 U/L Alanine Aminotransferase (ALT) 36 7-40 U/L Alkaline Phosphatase 177 H 46-116 U/L Creatine Kinase 22 L 34-145 U/L Total Protein 7.2 5.7-8.2 g/dL Albumin 3.8 3.2-4.8 g/dL Test 07/06/25 13:31 Range/Units Urine Color Colorless Yellow Urine Clarity Clear Clear Urine pH 6.0 5.0-9.0 Urine Specific [place] 1.006 1.001-1.035 Urine Protein Negative Negative Urine Ketones Negative Negative Urine Blood Negative Negative /uL Urine Nitrite Negative Negative Urine Bilirubin Negative Negative Urine Urobilinogen Normal Negative mg/dL Urine Leukocyte Esterase Negative Negative /uL Urine Glucose Normal Normal mg/dL SEPSIS Sepsis Screen Date sepsis recognized/suspect: Jul 07, 2025 Time Sepsis recognized/suspect: 014 Recent Procedure: No On Antibiotic Therapy: No Respiratory Rate >20: No Heart Rate >90: No Temp<36 C (96.8 F) or >38.3 C: No SBP <90 or MAP <65 mmHG: No New Acute Mental Status Change: No Is the patient on CPAP, BIPAP,: No Physician Orders Admit (07/06/25 22:57) Allergies (07/06/25 22:57) Code Status (07/06/25 22:57) Sodium Chloride 0.9% (07/06/25 23:00) Ondansetron Hcl (Zofran) (07/06/25 23:00) Docusate Sodium Capsule (Colace Capsule) (07/06/25 23:00) Npo (Nothing By Mouth) Diet (07/07/25 Breakfast) Condition: Serious (07/06/25 22:57) Bedrest With Bathroom Privileg (07/06/25 22:57) Notify Md Of Changes From Base (07/06/25 22:57) Principal Technical Specialist For 24 Hours (07/06/25 22:57) Emergency Dysrhythmia Protocol (07/06/25 22:57) Rhythm Strips Once Every Shift (07/06/25 22:57) Stat Ekg For Chest Pain (07/06/25 22:57) Blood Culture (07/07/25 01:01) Strict I & O QSHIFT (07/07/25 01:58) Assess Urine Specific [place] (07/07/25 02:13) Osmolality Urine (07/07/25 02:13) Urine Creatinine (07/07/25 02:13) Urine Potassium (07/07/25 02:13) Urine Protein (07/07/25 02:13) Urine Microscopic (07/07/25 02:13) Urine Protein/Creatinine Ratio (07/07/25 ) Urine Sodium (07/07/25 02:13) Kidney (07/07/25 02:13) Orthostatic Vital Signs (07/07/25 02:13) Glucose Blood (Accu-Chek Comfort Curve T (07/07/25 06:00) Insulin R (Human) (Insulin R) (07/07/25 06:00) Dextrose 50% Syringe (07/07/25 02:15) Drug Screen (07/07/25 02:13) Echo 2d Mode Cardiac Dop (07/07/25 02:13) Carotid Duplx W Color Dop (07/07/25 02:26) *[facility] (07/07/25 02:26) Roberta; Comprehensive Panel (07/07/25 02:29) Ampicillin & Sulbactam Sodium (Unasyn) (07/08/25 10:00) LIVER (07/07/25 02:30) Tramadol Hcl (Ultram) (07/07/25 02:45) Comprehensive Hepatitis Panel (07/07/25 02:39) Heparin Sodium (Porcine) (07/07/25 10:00) Mrsa Screen (07/07/25 02:47) Vital Signs Date Time Temp Pulse Resp B/P (MAP) Pulse Ox O2 Delivery O2 Flow Rate FiO2 07/07/25 02:34 97.8 76 18 123/73 (90) 95 97.8 07/07/25 01:41 99 Room Air* 0 21 07/07/25 01:40 98.0 68 19 132/87 (102) 96 98.0 Laboratory Tests Test 07/07/25 01:45 07/07/25 04:22 White Blood Count 8.4 10^3/uL (4.4-10.8) Lactic Acid Level 1.2 mmol/L (0.4-2.0) Medications Medications Dose Ordered Sig/Hector Route Start Time Stop Time Status Last Admin Dose Admin Acetaminophen/ Hydrocodone Bitart 1 tab Q4HP PRN PO 07/06/25 23:00 07/07/25 02:39 DC 07/07/25 01:50 1 TAB Ondansetron HCl 4 mg Q4HP PRN IV 07/06/25 23:00 07/07/25 01:51 4 MG Assessment/Plan Assessment/Plan # generalized weakness due to electrolyte imbalance, dehydration # possible autonomic dysfunction: Carotid duplex ordered, pending # high concern for acute renal failure, tubular necrosis: Consulted nephrology # mild leukocytosis: Check lactic acid, # uncontrolled diabetes mellitus-HbA1c 13.8 : Mild ISS # history of transaminitis : Liver ultrasound ordered, pending, check ammonia level # right arm abscess status post drainage and given Levaquin 500 for 14 days # history of wound infection with Klebsiella, staph aureus : Started on IV ampicillin sulbactam # diffuse triceps myositis: # History of RA: Continue home meds # obesity 29.8: Patient counseled on weight loss, diet, lifestyle modifications for 13 minutes PPI prophylaxis: not indicated DVT prophylaxis: Heparin 01378 units Goals of care addressed with the patient for more than 35 minutes: Full code status Case discussed with , patient and nurse Plan discussed with: Patient My Orders Orders - CONNIE CHRISTIE RESIDENT Procedure Category Date Status Time Admit ADMIT 07/06/25 Transmitted 22:57 Allergies ROGER 07/06/25 In Process 22:57 Code Status CODE 07/06/25 Transmitted 22:57 Sodium Chloride 0.9% PHA 07/06/25 In Process 23:00 Ondansetron Hcl PHA 07/06/25 In Process (Zofran) 23:00 Docusate Sodium PHA 07/06/25 In Process Capsule (Colace 23:00 Npo (Nothing By DIET 07/07/25 Transmitted Mouth) Diet Breakfast Condition: Serious ROGER 07/06/25 In Process 22:57 Bedrest With Bathroom [facility] 07/06/25 In Process Privileg 22:57 Notify Of Changes [facility] 07/06/25 In Process From Base 22:57 Principal Technical Specialist For [facility] 07/06/25 In Process 24 Hours 22:57 Emergency Dysrhythmia [facility] 07/06/25 In Process Protocol 22:57 Rhythm Strips Once [facility] 07/06/25 In Process Every Shift 22:57 Stat Ekg For Chest [facility] 07/06/25 In Process Pain 22:57 Blood Culture NICOLETTE 07/07/25 Uncollected 01:01 Strict I & O [facility] 07/07/25 In Process 01:58 Mrsa Screen [facility] 07/07/25 Uncollected 02:47 Date of Service: Jul 07, 2025 Billing Provider: MAK WILLARD MD Common Visit Codes: [id number] INP/OBS CARE (HIGH) Secondary Visit Codes: [id number] CARE PLAN 30 MINUTES CONNIE CHRISTIE RESIDENT Jul 07, 2025 06:24
[2025-07-07 06:46] LABS: Protein, Urine 13.1 mg/dL (1-14)
--- NOTE | 2025-07-07 07:30 | DVH ---
INDICATION: check for hepatobiliatry tree and liver echotexture TECHNIQUE: Multiple real-time sonographic images of the abdomen were obtained. COMPARISON: None FINDINGS: Liver is increased in echogenicity. The liver measures 17.4 cm. No intrahepatic biliary ductal dilatation is noted. The gallbladder wall measures 0.3 cm and is unremarkable. Cholelithiasis. No pericholecystic fluid or edema. The common duct measures 0.8 cm and is unremarkable. The right kidney measures 12.8 cm. No hydronephrosis. The left kidney measures 11.8 cm. No hydronephr osis. The spleen measures 12.3 cm, within normal limits. The echogenicity is within normal limits. The pancreas is not well visualized due to obscuration from bowel gas. The visualized portions of the IVC and aorta are grossly unremarkable. IMPRESSION: Hepatic steatosis. Hepatomegaly. Cholelithiasis. Common bile duct is prominent measuring 0.8 cm.
[2025-07-07] MEDS: SODIUM CHLORIDE 0.9% 500 ML IV ONE (09:28)
--- NOTE | 2025-07-07 09:40 | DVHCONRES ---
Date Seen: Jul 07, 2025 Resident Creating Document: YOMAIRAHATHAIS RESIDENT History of Present Illness 60 year old female with past medical history of new onset diabetes mellitus, rheumatoid arthritis, obesity presented with complaints of generalized weakness associated with nausea, vomiting, diarrhea, and headaches for last three days. She also complains of mild right shoulder pain, and dizziness when she gets up since 4 days. Patient had a recent admission for a soft tissue infection abscess, where patient received vancomycin and Zosyn and labs showed elevations of creatinine levels. Patient seen and examined at bedside. Mentioned no active symptoms, went for MRCP for suspicion for choledocholithiasis. Nephrology was consulted for PACO Patient does not know her baseline kidney function Past medical history New onset diabetes mellitus, rheumatoid arthritis, obesity past surgical history Denied any recent surgery Social history Patient denied smoking, alcohol, marijuana or any other drug intake Family history Nonsignificant Medication history Patient does not take any medication Allergic history No known allergies Past Medical History As described in the HPI Past Surgical History As described in the HPI Family History: Arthritis G8 MOTHER Diabetes mellitus G8 MOTHER G8 FATHER Allergies: Coded Allergies: NO KNOWN ALLERGIES (Unverified , 06/25/25) Home Meds Active Scripts Levofloxacin Hemihydrate (LEVAQUIN 500 MG) 500 Mg Tab, 1 TAB PO DAILY, #14 TAB Prov:HARLEY MONTGOMERY MD 06/30/25 Hydrocodone-Acetaminophen (Hydrocodone Bitartrate/AC 5-325 mg) 1 Tab Tab, 1 TAB PO Q4HP PRN, #30 TAB Prov:HARLEY MONTGOMERY MD 06/30/25 Current Medications Current Medications Medications (Trade) Dose Ordered Sig/Hector Route PRN Reason Start Time Stop Time Status Last Admin Sodium Chloride 1,000 ml @ 60 mls/hr [id number] IV 07/06/25 23:00 Acetaminophen (Tylenol Tablet) 325 mg Q4HP PRN PO MILD PAIN (1-3 PAIN SCALE) 07/06/25 23:00 07/07/25 02:39 DC Acetaminophen/ Hydrocodone Bitart ([place] 5/325MG Tab) 1 tab Q4HP PRN PO MODERATE PAIN (4-6 PAIN SCALE) 07/06/25 23:00 07/07/25 02:39 DC 07/07/25 01:50 Ondansetron HCl (Zofran) 4 mg Q4HP PRN IV NAUSEA / VOMITING 8/31/25 23:00 07/07/25 01:51 Docusate Sodium (Colace Capsule) 100 mg BIDPRN PRN PO FOR CONSTIPATION 07/06/25 23:00 Diagnostic Test (Pha) (Accu-Chek Comfort Curve T) 1 strip Q6HR 07/07/25 06:00 07/07/25 06:00 Insulin Human Regular (InsuLIN R) Q6HR SC 07/07/25 06:00 Dextrose 50 ml UD PRN IV Blood Sugar LESS THAN 60 07/07/25 02:15 Ampicillin Sodium/ Sulbactam Sodium 3 gm/Sodium Chloride 100 ml @ 100 mls/hr Q24H IV 07/08/25 10:00 Tramadol HCl (Ultram) 50 mg Q4HP PRN PO SEVERE PAIN (7-10 PAIN SCALE) 07/07/25 02:45 Heparin Sodium (Porcine) 5,000 units Q12HR SC 07/07/25 10:00 Sodium Chloride 1,000 ml @ 75 mls/hr [id number] IV 07/07/25 07:45 Review of Systems As described in the HPI Vital Signs Vital Signs Date Time Temp Pulse Resp B/P (MAP) Pulse Ox O2 Delivery O2 Flow Rate FiO2 07/07/25 05:00 98.8 64 20 115/68 (84) 95 98.8 07/07/25 02:34 Room Air* 0 21 Physical Exam Examination General Appearance: Alert, Oriented X3, Cooperative, No acute distress HEENT: EOMI Respiratory: Clear to auscultation, Normal air movement Cardiovascular: Regular rate, Normal S1, Normal S2 Abdominal: Normal bowel sounds Extremities: No cyanosis, No edema, Normal pulses, No tenderness/swelling Skin: No rashes, No breakdown Neuro: Normal speech and tone Labs/Diagnostic Data Labs Test 07/07/25 05:56 07/07/25 05:21 07/07/25 04:22 07/07/25 01:45 Range/Units POC Glucose 103 70-106 mg/dl Urine RBC None seen 0 - 4 /hpf Urine Microscopic WBC < 1 0-5 /HPF Urine Squamous Epithelial Cells None seen <5 /hpf Urine Bacteria None seen None Seen /hpf Urine Osmolality 280 mOsm/kg Urine Creatinine 39.96 30.0-125.0 mg/dL Urine Protein/Creatinine Ratio 0.33 Urine Sodium 74 40-220 mmol/L Urine Potassium 19 12-62 mmol/L Urine Total Protein 13.1 1-14 mg/dL Urine Opiates Screen Neg NEGATIVE Urine Fentanyl Screen Pos NEGATIVE Urine Barbiturates Screen Neg NEGATIVE Urine Phencyclidine Screen Neg NEGATIVE Urine Amphetamines Screen Neg NEGATIVE Urine Benzodiazepines Screen Neg NEGATIVE Urine Cocaine Screen Neg NEGATIVE Urine Cannabinoids Screen Neg NEGATIVE Lactic Acid Level 1.2 0.4-2.0 mmol/L Ammonia 12 11-32 umol/L White Blood Count 8.4 4.4-10.8 10^3/uL Red Blood Count 4.15 4.0-5.20 10^6/uL Hemoglobin 13.4 12.2-16.2 g/dL Hematocrit 39.3 36.0-46.0 % Mean Corpuscular Volume 94.8 80.0-100.0 fL Mean Corpuscular Hemoglobin 32.4 H 28.0-32.0 pg Mean Corpuscular Hemoglobin Concent 34.2 32.0-36.0 g/dL Red Cell Distribution Width 14.0 11.8-14.3 % Platelet Count 203 140-450 10^3/uL Mean Platelet Volume 8.4 6.9-10.8 fL Neutrophils (%) (Auto) 70.1 37.0-80.0 % Lymphocytes (%) (Auto) 19.1 10.0-50.0 % Monocytes (%) (Auto) 7.9 0.0-12.0 % Eosinophils (%) (Auto) 2.3 0.0-7.0 % Basophils (%) (Auto) 0.6 0.0-2.0 % Neutrophils # (Auto) 5.9 1.6-8.6 10 ^3/uL Lymphocytes # (Auto) 1.6 0.4-5.4 10 ^3/uL Monocytes # (Auto) 0.7 0-1.3 10 ^3/uL Eosinophils # (Auto) 0.2 0-0.8 10 ^3/uL Basophils # (Auto) 0 0-0.2 10 ^3/uL Nucleated Red Blood Cells 0.0 % Prothrombin Time 11.4 9.3-11.8 sec Prothrombin Time INR 1.08 0.9-1.15 Activated Partial Thromboplast Time 27.4 24.5-34.5 SEC Sodium Level 139 136-145 mmol/L Potassium Level 4.2 3.5-5.1 mmol/L Chloride Level 107 98-107 mmol/L Carbon Dioxide Level 22 20-31 mmol/L Anion Gap 10 5-15 Blood Urea Nitrogen 34 H 9-23 mg/dL Creatinine 3.88 H 0.550-1.02 mg/dL Glomerular Filtration Rate Calc 13 >90 mL/min BUN/Creatinine Ratio 8.8 L 10.0-20.0 Serum Glucose 101 74-106 mg/dL Uric Acid 7.6 3.1-7.8 mg/dL Calcium Level 9.2 8.7-10.4 mg/dL Phosphorus Level 4.6 2.4-5.1 mg/dL Magnesium Level 1.8 1.6-2.6 mg/dL Total Bilirubin 0.5 0.2-1.0 mg/dL Direct Bilirubin 0.2 <0.3 mg/dL Aspartate Amino Transferase (AST) 63 H 13-40 U/L Alanine Aminotransferase (ALT) 36 7-40 U/L Alkaline Phosphatase 177 H 46-116 U/L Creatine Kinase 22 L 34-145 U/L Total Protein 7.2 5.7-8.2 g/dL Albumin 3.8 3.2-4.8 g/dL Test 07/06/25 13:31 Range/Units Urine Color Colorless Yellow Urine Clarity Clear Clear Urine pH 6.0 5.0-9.0 Urine Specific [place] 1.006 1.001-1.035 Urine Protein Negative Negative Urine Ketones Negative Negative Urine Blood Negative Negative /uL Urine Nitrite Negative Negative Urine Bilirubin Negative Negative Urine Urobilinogen Normal Negative mg/dL Urine Leukocyte Esterase Negative Negative /uL Urine Glucose Normal Normal mg/dL Assessment Assessment # acute kidney injury likely due to ATN due to recent vancomycin/Zosyn toxicity Kidney function improved from creatinine of 3.92 to 3.88 FENA 5.2% Baseline GFR is 104 has a labs 06/28/2025 # new onset diabetes mellitus, uncontrolled # rheumatoid arthritis # obesity Plan/Recommendation Plan Monitor kidney function and electrolyte Strict input output Continue IV fluids at 75 cc/hour Avoid nephrotoxic agents /precipitants of ATN/interstitial nephritis Needs tight control of diabetes Case discussion with Dr. Pavon Addendum Patient seen and examined, plan discussed with resident. Agree with above, we will follow closely Plan discussed with: Patient, Other THAIS CLEARY RESIDENT Jul 07, 2025 09:40 VA PAVON MD Jul 07, 2025 15:46
--- NOTE | 2025-07-07 10:38 | DVH ---
CLINICAL HISTORY: Rule out obstruction TECHNIQUE: Grewal-scale, color and duplex doppler imaging of the bilateral carotid systems was performe d. COMPARISON: None Findings: Right carotid system: There is no plaque present in the right carotid system. Left carotid system: There is no plaque present in the left carotid system. The following flow velocities were obtained (Cm/sec). Right carotid System: ICA PSV: 87 Cm/sec ICA PDV: 40 Cm/sec ICA/CCA Ratio: 1.4 Left carotid System: ICA PSV: 93 Cm/sec ICA PDV: 30 Cm/sec ICA/CCA Ratio: 1.3 The right and left common carotid and external carotid arteries are patent. There is antegrade flow i n both vertebral arteries and external carotid arteries. IMPRESSION: NORMAL RIGHT CAROTID SYSTEM. NORMAL LEFT CAROTID SYSTEM. Estimation of carotid stenosis is based on velocity parameters that correlate the residual internal c arotid Diameter with that of the more distal vessel in accordance with the north sb symptomatic Carotid Endarterectomy trial (NASCET).
[2025-07-07] MEDS: ACETAMINOPHEN 500 MG TAB or CAP PO PRN (11:34)
[2025-07-07] MEDS: HEPARIN SODIUM (PORCINE) 5000 UNITS/ML 1ML VIAL SC SCH (11:37)
--- NOTE | 2025-07-07 11:42 | DVH ---
PROCEDURE: MRI MRCP MRI Indication: Dilated CBD COMPARISON: Ultrasound abdomen from today TECHNIQUE: Multiplanar multisequence images of the abdomen are obtianed per MRCP protocol. FINDINGS: Cholelithiasis. Adrenal glands, spleen, pancreas unremarkable in shape. Common bile duct nondilated measuring 3 mm. No intrahepatic duct dilatation. No significant pericholecystic edema. No T2 hyperintense lesions in the liver. No hydronephrosis. 1 cm left renal cyst. Stomach nondistended. IMPRESSION: Cholelithiasis. Distended gallbladder No evidence for choledocholithiasis. Normal caliber common bile duct.
[2025-07-07 14:21] LABS: Hepatitis A Total Antibody Positive (Negative); Hepatitis B Surface Antigen Negative (Negative); Hepatitis C Antibody Negative (Negative)
[2025-07-07] MEDS: SODIUM CHLORIDE 0.9% 1,000 ML IV SCH (15:10)
--- NOTE | 2025-07-07 17:10 | DVHINCON2 ---
Date of service: Jul 07, 2025 History of Present Illness 60-year-old female with new onset diabetes mellitus admitted secondary to generalized weakness, upper abdominal pain associated with nausea and vomiting. Patient was recently admitted for soft tissue infection abscess of the right elbow. According to the patient and she was given antibiotics with a set home however that is when she noted there abdominal pain. Past Medical History New onset diabetes Past Surgical History Tubal ligation. . Family History: Arthritis G8 MOTHER Diabetes mellitus G8 MOTHER G8 FATHER Family History Noncontributory Social History Denies alcohol, tobacco, IV drug use Allergies: Coded Allergies: NO KNOWN ALLERGIES (Unverified , 06/25/25) Home Meds Active Scripts Levofloxacin Hemihydrate (LEVAQUIN 500 MG) 500 Mg Tab, 1 TAB PO DAILY, #14 TAB Prov:HARLEY MONTGOMERY MD 06/30/25 Hydrocodone-Acetaminophen (Hydrocodone Bitartrate/AC 5-325 mg) 1 Tab Tab, 1 TAB PO Q4HP PRN, #30 TAB Prov:HARLEY MONTGOMERY MD 06/30/25 Current Medications Current Medications Medications (Trade) Dose Ordered Sig/Hector Route PRN Reason Start Time Stop Time Status Last Admin Sodium Chloride 1,000 ml @ 60 mls/hr [id number] IV 07/06/25 23:00 07/07/25 15:31 DC Acetaminophen (Tylenol Tablet) 325 mg Q4HP PRN PO MILD PAIN (1-3 PAIN SCALE) 07/06/25 23:00 07/07/25 02:39 DC Acetaminophen/ Hydrocodone Bitart ([place] 5/325MG Tab) 1 tab Q4HP PRN PO MODERATE PAIN (4-6 PAIN SCALE) 07/06/25 23:00 07/07/25 02:39 DC 07/07/25 01:50 Ondansetron HCl (Zofran) 4 mg Q4HP PRN IV NAUSEA / VOMITING 07/06/25 23:00 07/07/25 01:51 Docusate Sodium (Colace Capsule) 100 mg BIDPRN PRN PO FOR CONSTIPATION 07/06/25 23:00 Diagnostic Test (Pha) (Accu-Chek Comfort Curve T) 1 strip Q6HR 07/07/25 06:00 07/07/25 12:04 Insulin Human Regular (InsuLIN R) Q6HR SC 07/07/25 06:00 Dextrose 50 ml UD PRN IV Blood Sugar LESS THAN 60 07/07/25 02:15 Ampicillin Sodium/ Sulbactam Sodium 3 gm/Sodium Chloride 100 ml @ 100 mls/hr Q24H IV 07/08/25 10:00 Tramadol HCl (Ultram) 50 mg Q4HP PRN PO SEVERE PAIN (7-10 PAIN SCALE) 07/07/25 02:45 Heparin Sodium (Porcine) 5,000 units Q12HR SC 07/07/25 10:00 07/07/25 11:37 Sodium Chloride 1,000 ml @ 75 mls/hr [id number] IV 07/07/25 07:45 07/07/25 15:10 Acetaminophen (Tylenol Tablet Or Capsule) 500 mg Q8HP PRN PO MODERATE PAIN (4-6 PAIN SCALE) 07/07/25 10:00 07/07/25 11:34 Vital Signs Vital Signs Date Time Temp Pulse Resp B/P (MAP) Pulse Ox O2 Delivery O2 Flow Rate FiO2 07/07/25 05:00 98.8 64 20 115/68 (84) 95 98.8 07/07/25 02:34 Room Air* 0 21 Physical Exam GEN: Age-appropriate female in no acute distress. Alert. HEENT: Normocephalic atraumatic. Moist mucous membranes. Anicteric sclerae. CV: RRR Respiratory: CTAB ABD: Well-healed infraumbilical incisional scar from her previous surgery. Abdomen is otherwise soft. Very minimal epigastric tenderness to palpation wit hout guarding or rebound. Nondistended. Abdominal ultrasound: Cholelithiasis without pericholecystic fluid or edema. Normal gallbladder wall. Common bile duct at 0.8 cm. Labs/Diagnostic Data Labs Test 07/07/25 12:03 07/07/25 05:21 07/07/25 04:22 07/07/25 01:45 Range/Units POC Glucose 108 H 70-106 mg/dl Urine RBC None seen 0 - 4 /hpf Urine Microscopic WBC < 1 0-5 /HPF Urine Squamous Epithelial Cells None seen <5 /hpf Urine Bacteria None seen None Seen /hpf Urine Osmolality 280 mOsm/kg Urine Creatinine 39.96 30.0-125.0 mg/dL Urine Protein/Creatinine Ratio 0.33 Urine Sodium 74 40-220 mmol/L Urine Potassium 19 12-62 mmol/L Urine Total Protein 13.1 1-14 mg/dL Urine Opiates Screen Neg NEGATIVE Urine Fentanyl Screen Pos NEGATIVE Urine Barbiturates Screen Neg NEGATIVE Urine Phencyclidine Screen Neg NEGATIVE Urine Amphetamines Screen Neg NEGATIVE Urine Benzodiazepines Screen Neg NEGATIVE Urine Cocaine Screen Neg NEGATIVE Urine Cannabinoids Screen Neg NEGATIVE Lactic Acid Level 1.2 0.4-2.0 mmol/L Ammonia 12 11-32 umol/L Hepatitis A Antibody Total Positive H Negative Hepatitis B Surface Antigen Negative Negative Hepatitis B Surface Antibody Negative Negative Hepatitis B Core Total Antibody React Negative Hepatitis C Antibody Negative Negative White Blood Count 8.4 4.4-10.8 10^3/uL Red Blood Count 4.15 4.0-5.20 10^6/uL Hemoglobin 13.4 12.2-16.2 g/dL Hematocrit 39.3 36.0-46.0 % Mean Corpuscular Volume 94.8 80.0-100.0 fL Mean Corpuscular Hemoglobin 32.4 H 28.0-32.0 pg Mean Corpuscular Hemoglobin Concent 34.2 32.0-36.0 g/dL Red Cell Distribution Width 14.0 11.8-14.3 % Platelet Count 203 140-450 10^3/uL Mean Platelet Volume 8.4 6.9-10.8 fL Neutrophils (%) (Auto) 70.1 37.0-80.0 % Lymphocytes (%) (Auto) 19.1 10.0-50.0 % Monocytes (%) (Auto) 7.9 0.0-12.0 % Eosinophils (%) (Auto) 2.3 0.0-7.0 % Basophils (%) (Auto) 0.6 0.0-2.0 % Neutrophils # (Auto) 5.9 1.6-8.6 10 ^3/uL Lymphocytes # (Auto) 1.6 0.4-5.4 10 ^3/uL Monocytes # (Auto) 0.7 0-1.3 10 ^3/uL Eosinophils # (Auto) 0.2 0-0.8 10 ^3/uL Basophils # (Auto) 0 0-0.2 10 ^3/uL Nucleated Red Blood Cells 0.0 % Prothrombin Time 11.4 9.3-11.8 sec Prothrombin Time INR 1.08 0.9-1.15 Activated Partial Thromboplast Time 27.4 24.5-34.5 SEC Sodium Level 139 136-145 mmol/L Potassium Level 4.2 3.5-5.1 mmol/L Chloride Level 107 98-107 mmol/L Carbon Dioxide Level 22 20-31 mmol/L Anion Gap 10 5-15 Blood Urea Nitrogen 34 H 9-23 mg/dL Creatinine 3.88 H 0.550-1.02 mg/dL Glomerular Filtration Rate Calc 13 >90 mL/min BUN/Creatinine Ratio 8.8 L 10.0-20.0 Serum Glucose 101 74-106 mg/dL Uric Acid 7.6 3.1-7.8 mg/dL Calcium Level 9.2 8.7-10.4 mg/dL Phosphorus Level 4.6 2.4-5.1 mg/dL Magnesium Level 1.8 1.6-2.6 mg/dL Total Bilirubin 0.5 0.2-1.0 mg/dL Direct Bilirubin 0.2 <0.3 mg/dL Aspartate Amino Transferase (AST) 63 H 13-40 U/L Alanine Aminotransferase (ALT) 36 7-40 U/L Alkaline Phosphatase 177 H 46-116 U/L Creatine Kinase 22 L 34-145 U/L Total Protein 7.2 5.7-8.2 g/dL Albumin 3.8 3.2-4.8 g/dL Test 07/06/25 13:31 Range/Units Urine Color Colorless Yellow Urine Clarity Clear Clear Urine pH 6.0 5.0-9.0 Urine Specific [place] 1.006 1.001-1.035 Urine Protein Negative Negative Urine Ketones Negative Negative Urine Blood Negative Negative /uL Urine Nitrite Negative Negative Urine Bilirubin Negative Negative Urine Urobilinogen Normal Negative mg/dL Urine Leukocyte Esterase Negative Negative /uL Urine Glucose Normal Normal mg/dL Microbiology Date/Time Source Procedure Growth Status 07/07/25 04:15 Nose MRSA Screen - Final Complete Assessment 1. PACO possibly from dehydration 2. Cholelithiasis questionable cholecystitis Plan/Recommendation 1. We will get a HIDA scan. Plan discussed with: Patient BHARAT WILEY MD Jul 07, 2025 17:10
--- NOTE | 2025-07-07 17:55 | DVHPNRES ---
Progress Note Date Seen: Jul 07, 2025 Resident Creating Document: JASEN CHÁVEZ RESIDENT Medical Necessity Reason Pt with a Central, PICC or Fol: No Subjective Review of Systems Judy the Patient is a 60-year-old female with past medical history of new onset diabetes mellitus came to the ED with chief complaints of generalized weakness, nausea, vomiting, diarrhea, headaches since 3 days. Patient was recently admitted for a soft tissue infection abscess which was drained on the right elbow. Patient states that since 3 days she had vomited every day 1 time which was nonbloody, associated with nausea and diarrhea. The diarrhea has stopped after coming to the hospital. Patient also complains of mild right shoulder pain, dizziness when she gets up since 4 days. Patient denies any weakness in her proximal muscles, denies any rashes, sick contacts, travel. Romberg test was negative. Liver ultrasound, kidney ultrasound is placed. Patient started on IV ampicillin sulbactam. Nephrology was consulted for worsening renal function. Surgical history: , tubal ligation Family history: Noncontributory Personal history: Patient denies any alcohol use, smoking, drug use Home medications: Levofloxacin for right elbow abscess drainage, [place] for pain Lives with: Family Code status: Full code The patient was seen and examined at the bedside. Overnight events were reviewed. Patient kept NPO, she wants to eat and drink. She reports having abdominal pain and vomiting, however improved since yesterday. Treatment plan and imaging results were explained to the patient. Objective vital signs Vital Sign Date Time Temp Pulse Resp B/P (MAP) Pulse Ox O2 Delivery O2 Flow Rate FiO2 07/07/25 17:00 98.5 57 17 132/72 (92) 97 98.5 07/07/25 02:34 Room Air* 0 21 medications Current Medications Medications Dose Ordered Sig/Hector Route Start Time Stop Time Status Last Admin Dose Admin Ondansetron HCl 4 mg Q4HP PRN IV 07/06/25 23:00 07/07/25 01:51 4 MG Docusate Sodium 100 mg BIDPRN PRN PO 07/06/25 23:00 Diagnostic Test (Pha) 1 strip Q6HR 07/07/25 06:00 07/07/25 12:04 1 STRIP Insulin Human Regular Q6HR SC 07/07/25 06:00 Dextrose 50 ml UD PRN IV 07/07/25 02:15 Ampicillin Sodium/ Sulbactam Sodium 3 gm/Sodium Chloride 100 ml @ 100 mls/hr Q24H IV 07/08/25 10:00 Tramadol HCl 50 mg Q4HP PRN PO 07/07/25 02:45 Heparin Sodium (Porcine) 5,000 units Q12HR SC 07/07/25 10:00 07/07/25 11:37 5,000 UNITS Sodium Chloride 1,000 ml @ 75 mls/hr [id number] IV 07/07/25 07:45 07/07/25 15:10 75 MLS/HR Acetaminophen 500 mg Q8HP PRN PO 07/07/25 10:00 07/07/25 11:34 500 MG Examination Pt is lying on bed General Appearance: Alert, Oriented X3, Cooperative, Mild distress HEENT: Atraumatic, Mucous membranes moist/pink Respiratory: Clear to auscultation, Normal air movement, No added sounds Cardiovascular: Regular rate, Normal S1, Normal S2, No murmurs Abdominal/ : Active bowel sounds, Soft, no distention, epigastric and right upper quadrant tenderness Extremities: No edema, Normal pulses, No tenderness/swelling, right elbow dry and clean bandage present (status post abscess drainage) Skin: No Significant rash, except past surgical scars Neuro: Normal speech, sensorimotor deficits none Psych/Mental Status: Mental status NL, Mood NL Nurse was there as maintenance equipment operator during examination laboratory and microbiology Laboratory Tests 07/07/25 01:45 Test 07/07/25 01:45 Range/Units Serum Glucose 101 74-106 mg/dL Microbiology Date/Time Source Procedure Growth Status 07/07/25 04:15 Nose MRSA Screen - Final Complete Labs and/or images reviewed: Labs reviewed by me, Image(s) reviewed by me Problem List/Assessment/Plan Problem List/Assessment/Plan #Intractable Abdominal pain due to cholelithiasis #Hepatic steatosis #Hepatomegaly #Ruled out choledocholithiasis NPO Abdominal ultrasound: CBD dilated 8 cm, cholelithiasis hepatic steatosis, hepatomegaly MRCP: Cholelithiasis IV fluid and pain management with [place] and tramadol Ondansetron for nausea and vomiting Ampicillin sulbactam Surgery consult done: HIDA scan ordered ECHO for clearance: Sinus rhythm. Difficult acoustic windows. Mild left atrial enlargement. Mild RV enlargement. Mild aortic root enlargement. Valves are normal. Left ventricular function is preserved at 60% with normal RV function. Dopplers unremarkable. No pericardial effusion masses or vegetations. Sepsis due to right elbow wound with abscess status post soft tissue abscess drainage IV ampicillin sulbactam 3 g daily Wound consult done Acute kidney injury likely due to ATN due to recent vancomycin/Zosyn toxicity; can not rule out vasomotor nephropathy Creatinine 3.88 Kidney function improved from creatinine of 3.92 to 3.88 FENA 5.2% indicating kidney injury, not due to prerenal PACO Baseline GFR is 104 has a labs 06/28/2025 IV fluid given Nephrology is following Uncontrolled diabetes mellitus Recent hemoglobin A1c 13 Insulin sliding scale Fentanyl positive in UDS; could be related to recent surgical procedure repeat UDS GI prophylaxis: Protonix IV DVT prophylaxis: Heparin sodium 5000 q.12 Diet: NPO Goals of care discussed with the patient for 20 minutes: Full code status Case discussed with Dr. Hendrix , patient and RN Plan discussed with: Patient, Other (RN) My Orders My Orders Orders - JASEN CHÁVEZ RESIDENT Procedure Category Date Status Time Acetaminophen Tab Or PHA 07/07/25 In Process Cap (Tylenol Tablet 10:00 * Wound Consult CONS 07/07/25 Transmitted Addendum Addendum Addendum I was physically present for the webb portions of the service provided to patient by THE RESIDENT. I have reviewed the documentation, discussed the case with resident and agree with the resident's documentation except as noted. Also the patient's clinical case was discussed with the patient's nurse. This medical document was created using an electronic medical record system with computerized dictation system. Although this document has been carefully reviewed, there might still be some phonetic and typographical errors. These areas are purely typographical due to imperfections of the software programs, and do not reflect any compromise in the patient's medical care. Late signature. Date of Service: Jul 07, 2025 Billing Provider: CHACHA HENDRIX MD Common Visit Codes: [id number] INP/OBS CARE(HIGH) Secondary Visit Codes: [id number] CARE PLAN 30 MINUTES (20 minutes) JASEN CHÁVEZ Jul 07, 2025 17:54 JASEN LARIOS Jul 07, 2025 22:30 CHACHA HENDRIX MD Jul 08, 2025 15:18
[2025-07-07] MEDS: DEXTROSE (50%) 50ML SYRG IV ONE (18:00)
[2025-07-07] MEDS: ACCU-CHEK COMFORT CURVE STRIP VI ONE (18:00)
[2025-07-07] MEDS: InsuLIN REG 1unit/0.01ml Soln (100units/ml) SC ONE (18:00)
[2025-07-07] MEDS: AMPICILLIN & SULBACTAM SODIUM 3 GM in SODIUM CHL 0.9% 100 ML IV ONE (18:38)
--- NOTE | 2025-07-07 19:05 | DVHSR ---
APPROVED REPORT EXAM: Two-dimensional and M-mode echocardiogram with Doppler and color Doppler. Blood Pressure: 115/68 mmHg INDICATION Rule out structural heart disease RISK FACTORS Height: 5'2", Weight: 163 DIMENSIONS LVDd4.3 (3.8-5.7cm)LA (2D)3.8 (1.9-4.0cm)Aortic Root3.1 (2.0-3.7cm) LVDs3.0 (2.5-4.0cm)LA (MM) (1.9-4.0cm)Aortic Cusp Exc1.6 (1.5-2.0cm) EF (%) 60.0 (55-70%)Rt. Atrium3.6 (1.9-4.0cm)Asc. Aorta cm IVSd1.0 (0.7-1.1cm)RV (D) (1.8-2.4cm) PWd0.8 (0.7-1.1cm) Mitral Valve MitralMitral Stenosis E wave0.73m/sMV Mean GR.mmHg A wave0.96m/sMV Peak GR.mmHg E/A ratio0.82D MVAcm2 DECEL [id number] 1/2 [place] Aortic Valve Aortic ValveAortic Stenosis V11.04m/Hansa Mean GR.3mmHg V21.19m/Hansa Peak GR.6mmHg LVOT Diameter1.8 (1.8-2.4cm)Doppler AVA2.22cm2 Pulmonic Valve V20.92m/s Conclusion Sinus rhythm. Difficult acoustic windows. Mild left atrial enlargement. Mild RV enlargement. Mild aortic root enlargement. Valves are normal. Left ventricular function is preserved at 60% with normal RV function. Dopplers unremarkable. No pericardial effusion masses or vegetations.
[2025-07-07 23:28] LABS: Opiate Scree,Urine Neg (NEGATIVE); Phencyclidine Screen, Urine Neg (NEGATIVE)
[2025-07-07] MEDS: PANTOPRAZOLE 40 MG/10 ML VIAL INJ IV SCH (23:28)
[2025-07-07 23:29] LABS: Amphetamine Screen, Urine Neg (NEGATIVE); Barbiturate Scree,Urine Neg (NEGATIVE); Benzodiazephine Screen, Urine Neg (NEGATIVE); Cannabinoid Screen, Urine Neg (NEGATIVE); Cocaine Screen, Urine Neg (NEGATIVE)
[2025-07-07] MEDS: MORPHINE SULFATE INJ 2 MG/ml SYRG IV PRN (23:29)
[2025-07-08] VITALS (8 sets, daily range): BP systolic 97–146; BP diastolic 60–92; PULSE 60–78; RESP 14–20; TEMP 97.9–98.3; O2SAT 96
--- NOTE | 2025-07-08 05:58 | DVH ---
CHEST RADIOGRAPH Indication: Shortness of breaths Technique: Single frontal view of the chest was obtained COMPARISON: None FINDINGS: Lines and Tubes: None Lungs: Increased interstitial prominence Pleura: No effusion. No pneumothorax. Cardiomediastinal contours: Unremarkable Bones: Unremarkable IMPRESSION: Increased interstital prominence. This may represent pulmonary vascular congestion and/or viral pneum onia. Clinical correlation advised.
[2025-07-08 05:59] LABS: Hematocrit 37.0 % (36.0-46.0); Hemoglobin 12.7 g/dL (12.2-16.2); Mean Corpuscular Hemoglobin 32.6 pg (28.0-32.0); Mean Corpuscular Volume 94.7 fL (80.0-100.0); Nucleated Red Blood Cells % 0.0 %
[2025-07-08 06:07] LABS: Alanine Aminotransferase 26 U/L (7-40); Albumin 3.4 g/dL (3.2-4.8); Anion Gap 12 (5-15); BUN/Creatinine Ratio 9.0 (10.0-20.0); Bilirubin, Total 0.5 mg/dL (0.2-1.0); Calcium 8.7 mg/dL (8.7-10.4); Carbon Dioxide 22 mmol/L (20-31); Glucose 100 mg/dL (74-106); Magnesium 1.9 mg/dL (1.6-2.6); Potassium 3.6 mmol/L (3.5-5.1); Total Protein 6.5 g/dL (5.7-8.2)
[2025-07-08 06:13] LABS: Alkaline Phosphatase 148 U/L (46-116); Blood Urea Nitrogen 31 mg/dL (9-23); Chloride 112 mmol/L (98-107); Sodium 146 mmol/L (136-145)
[2025-07-08] MEDS: AMPICILLIN & SULBACTAM SODIUM 3 GM in SODIUM CHL 0.9% 100 ML IV SCH (09:51)
[2025-07-08 10:07] LABS: Anti-Centromere B Antibody <0.2 AI (0.0-0.9); Anti-Jo-1 Antibody <0.2 AI (0.0-0.9); Anti-dsDNA Antibody 1 IU/mL (0-9); Antichromatin Antibody <0.2 AI (0.0-0.9); Antiscleroderma-70 Antibody <0.2 AI (0.0-0.9); Sjogren's Anti-SS-A Antibody <0.2 AI (0.0-0.9); Sjogren's Anti-SS-B Antibody <0.2 AI (0.0-0.9)
[2025-07-08] MEDS: SODIUM CHLORIDE 0.9% 500 ML IV ONE (10:45)
--- NOTE | 2025-07-08 15:32 | DVH ---
Procedure: NM NM HIDA SCAN Exam Date: 07/08/2025 01:38 PM Clinical History: abd pain Comparison Study: None Nuclear Medicine Hepatobiliary Scan. Technique: Following the intravenous administration of 5.5 mCi of technetium 99m labeled Choletec multiple plana r abdominal planar images were obtained in anterior projection in 2 minute intervals for 30 minutes . Right lateral images were obtained at 60 minutes after injection. Findings: The liver appears grossly normal in size. There is no abnormal persistence of the cardiac or blood po ol activity. There is prompt visualization of the gallbladder and excretion of activity into the smal l bowel. Impression: 1. Unremarkable hepatobiliary study without evidence of acute cholecystitis.
--- NOTE | 2025-07-08 17:39 | DVHPNRES ---
Progress Note Date Seen: Jul 08, 2025 Resident Creating Document: JASEN CHÁVEZ RESIDENT Medical Necessity Reason Pt with a Central, PICC or Fol: No Subjective Review of Systems Judy Najera is a 60-year-old female who presents to the ED with chief complaints of generalized weakness, nausea, nonbloody emesis, diarrhea, headaches three days before her admission. Patient was recently admitted for a soft tissue infection abscess which was drained on the right elbow. Patient also reports mild right shoulder pain, dizziness when stand ups. Denies any weakness in her proximal muscles, denies any rashes, sick contacts, travel. Past medical history: Diabetes mellitus, right elbow abscess status post incision and drainage, questionable rheumatoid arthritis per patient. Surgical history: , tubal ligation Family history: Noncontributory Social history: Lives in [place] with family. Denies current tobacco, alcohol and other drug abuse. Allergies: Denies Home medications: Levofloxacin for right elbow abscess drainage, [place] for pain Patient was seen and examined at bedside today. Overnight events were reviewed. She denies any chest pain, shortness of breath, fever, abdominal pain, nausea, vomiting or any other complaints. Progress tired from NPO to clear liquid based on HIDA scan negative for acute cholecystitis. Objective vital signs Vital Sign Date Time Temp Pulse Resp B/P (MAP) Pulse Ox O2 Delivery O2 Flow Rate FiO2 07/08/25 17:05 98.3 62 16 124/73 (90) 96 98.3 07/08/25 08:00 Room Air* 0 21 Total Intake and Output 07/07/25 07/07/25 07/08/25 15:00 23:00 07:00 Intake Total 500 ml 150 ml 0 ml Balance 500 ml 150 ml 0 ml medications Current Medications Medications Dose Ordered Sig/Hector Route Start Time Stop Time Status Last Admin Dose Admin Ondansetron HCl 4 mg Q4HP PRN IV 07/06/25 23:00 07/07/25 23:28 4 MG Docusate Sodium 100 mg BIDPRN PRN PO 07/06/25 23:00 Diagnostic Test (Pha) 1 strip Q6HR 07/07/25 06:00 07/08/25 12:23 1 STRIP Insulin Human Regular Q6HR SC 07/07/25 06:00 Dextrose 50 ml UD PRN IV 07/07/25 02:15 Ampicillin Sodium/ Sulbactam Sodium 3 gm/Sodium Chloride 100 ml @ 100 mls/hr Q24H IV 07/08/25 10:00 07/08/25 09:51 100 MLS/HR Tramadol HCl 50 mg Q4HP PRN PO 07/07/25 02:45 07/08/25 05:46 50 MG Heparin Sodium (Porcine) 5,000 units Q12HR SC 07/07/25 10:00 07/08/25 09:48 5,000 UNITS Sodium Chloride 1,000 ml @ 75 mls/hr [id number] IV 07/07/25 07:45 07/08/25 09:51 75 MLS/HR Acetaminophen 500 mg Q8HP PRN PO 07/07/25 10:00 07/07/25 11:34 500 MG Pantoprazole Sodium 40 mg DAILY IV 07/07/25 22:30 07/07/25 23:28 40 MG Morphine Sulfate 1 mg Q6HP PRN IV 07/07/25 23:15 07/07/25 23:29 1 MG Examination Pt is lying on bed General Appearance: Alert, Oriented X3, Cooperative, Mild distress HEENT: Atraumatic, Mucous membranes moist/pink Respiratory: Clear to auscultation, Normal air movement, No added sounds Cardiovascular: Regular rate, Normal S1, Normal S2, No murmurs Abdominal/ : Active bowel sounds, Soft, no distention, no tenderness Extremities: No edema, Normal pulses, No tenderness/swelling Skin: No Significant rash, except past surgical scars Neuro: Normal speech, sensorimotor deficits none Psych/Mental Status: Mental status NL, Mood NL Nurse was there as bicycle designer during examination laboratory and microbiology Laboratory Tests 07/08/25 05:23 Test 07/08/25 05:23 Range/Units Serum Glucose 100 74-106 mg/dL Microbiology Date/Time Source Procedure Growth Status 07/07/25 04:15 Nose MRSA Screen - Final Complete Labs and/or images reviewed: Labs reviewed by me, Image(s) reviewed by me Problem List/Assessment/Plan Problem List/Assessment/Plan #Intractable Abdominal pain due to cholelithiasis #Hepatic steatosis #Hepatomegaly #Ruled out choledocholithiasis Abdominal ultrasound: CBD dilated 8 cm, cholelithiasis hepatic steatosis, hepatomegaly MRCP: Cholelithiasis, no choledocholithiasis IV fluid and pain management with [place] and tramadol Ondansetron for nausea and vomiting Ampicillin sulbactam Surgery consult done: HIDA scan: No acute cholecystitis Diet advanced to clear liquid #Sepsis due to right elbow wound with abscess status post soft tissue abscess drainage IV ampicillin sulbactam 3 g daily Wound consult done #Acute kidney injury likely due to ATN due to recent vancomycin/Zosyn toxicity; can not rule out vasomotor nephropathy #Mild hypernatremia Creatinine 3.88 Kidney function improved from creatinine of 3.92 to 3.88 FENA 5.2% indicating kidney injury, not due to prerenal PACO Baseline GFR is 104 has a labs 06/28/2025 IV fluid given Nephrology is following Completed echocardiogram results: Mild left atrial enlargement. Mild RV enlargement. Mild aortic root enlargement. Valves are normal.LVEF 60% with normal RV function. #Uncontrolled diabetes mellitus Recent hemoglobin A1c 13 Insulin sliding scale #Fentanyl positive in UDS; could be related to recent surgical procedure repeat UDS #Questionable rheumatoid arthritis Autoimmune panel showed no compatible antibodies. ESR elevated. GI prophylaxis: Protonix IV DVT prophylaxis: Heparin sodium 5000 q.12 Diet: Clear liquids Goals of care discussed with the patient for more than 27 minutes: Full code status Case discussed with Dr. Perez , patient and RN Plan discussed with: Patient, Other My Orders My Orders Orders - JASEN CHÁVEZ RESIDENT Procedure Category Date Status Time Cleanse Wound With ROGER 07/08/25 In Process Wound Clean 10:40 * Dietary Consult CONS 07/08/25 Transmitted 14:12 Wound Culture W/ Gs NICOLETTE 07/08/25 In Process 14:16 Clear Liq Diet DIET 07/08/25 Transmitted Dinner Date of Service: Jul 08, 2025 Billing Provider: RICHIE PEREZ MD Common Visit Codes: [id number] INP/OBS CARE(HIGH) JASEN CHÁVEZ RESIDENT Jul 08, 2025 17:39 PAULINA YADAV RESIDENT Jul 08, 2025 23:53 RICHIE PEREZ MD Jul 11, 2025 22:18
--- NOTE | 2025-07-08 21:27 | DVHPN2 ---
Progress Note Date Seen: Jul 08, 2025 Resident Creating Document: THAIS CLEARY RESIDENT Medical Necessity Reason Pt with a Central, PICC or Fol: No Subjective Review of Systems History of Present Illness 60 year old female with past medical history of new onset diabetes mellitus, rheumatoid arthritis, obesity presented with complaints of generalized weakness associated with nausea, vomiting, diarrhea, and headaches for last three days. She also complains of mild right shoulder pain, and dizziness when she gets up since 4 days. Patient had a recent admission for a soft tissue infection abscess, where patient received vancomycin and Zosyn and labs showed elevations of creatinine levels. Patient seen and examined at bedside. Mentioned no active symptoms, went for MRCP for suspicion for choledocholithiasis. Nephrology was consulted for PACO Patient does not know her baseline kidney function Past medical history New onset diabetes mellitus, rheumatoid arthritis, obesity past surgical history Denied any recent surgery Social history Patient denied smoking, alcohol, marijuana or any other drug intake Family history Nonsignificant Medication history Patient does not take any medication Allergic history No known allergies Interval Events 07/08/25 pt seen and examined at bedside. mentioned mild nausea no other active complaints Objective vital signs Vital Sign Date Time Temp Pulse Resp B/P (MAP) Pulse Ox O2 Delivery O2 Flow Rate FiO2 07/08/25 20:00 Room Air* 0 21 07/08/25 17:05 98.3 62 16 124/73 (90) 96 98.3 Total Intake and Output 07/07/25 07/07/25 07/08/25 15:00 23:00 07:00 Intake Total 500 ml 150 ml 0 ml Balance 500 ml 150 ml 0 ml medications Current Medications Medications Dose Ordered Sig/Hector Route Start Time Stop Time Status Last Admin Dose Admin Ondansetron HCl 4 mg Q4HP PRN IV 07/06/25 23:00 07/07/25 23:28 4 MG Docusate Sodium 100 mg BIDPRN PRN PO 07/06/25 23:00 Diagnostic Test (Pha) 1 strip Q6HR 07/07/25 06:00 07/08/25 18:09 1 STRIP Insulin Human Regular Q6HR SC 07/07/25 06:00 Dextrose 50 ml UD PRN IV 07/07/25 02:15 Ampicillin Sodium/ Sulbactam Sodium 3 gm/Sodium Chloride 100 ml @ 100 mls/hr Q24H IV 07/08/25 10:00 07/08/25 09:51 100 MLS/HR Tramadol HCl 50 mg Q4HP PRN PO 07/07/25 02:45 07/08/25 05:46 50 MG Heparin Sodium (Porcine) 5,000 units Q12HR SC 07/07/25 10:00 07/08/25 09:48 5,000 UNITS Sodium Chloride 1,000 ml @ 75 mls/hr [id number] IV 07/07/25 07:45 07/08/25 09:51 75 MLS/HR Acetaminophen 500 mg Q8HP PRN PO 07/07/25 10:00 07/07/25 11:34 500 MG Pantoprazole Sodium 40 mg DAILY IV 07/07/25 22:30 07/07/25 23:28 40 MG Morphine Sulfate 1 mg Q6HP PRN IV 07/07/25 23:15 07/07/25 23:29 1 MG Examination Examination General Appearance: Alert, Oriented X3, Cooperative, No acute distress HEENT: EOMI Respiratory: Clear to auscultation, Normal air movement Cardiovascular: Regular rate, Normal S1, Normal S2 Abdominal: Normal bowel sounds Extremities: No cyanosis, No edema, Normal pulses, No tenderness/swelling Skin: No rashes, No breakdown Neuro: Normal speech and tone laboratory and microbiology Laboratory Tests 07/08/25 05:23 Test 07/08/25 05:23 Range/Units Serum Glucose 100 74-106 mg/dL Microbiology Date/Time Source Procedure Growth Status 07/07/25 04:15 Nose MRSA Screen - Final Complete Labs and/or images reviewed: Labs reviewed by me, Image(s) reviewed by me Problem List/Assessment/Plan Problem List/Assessment/Plan Assessment # Acute kidney injury likely due to ATN due to recent vancomycin/Zosyn toxicity Kidney function improved from creatinine of 3.88 to 3.46 FENA 5.2% Baseline GFR is 104 has a labs 06/28/2025 # hypernatremia mild, levels 146 # new onset diabetes mellitus, uncontrolled # rheumatoid arthritis # obesity Plan Monitor kidney function and electrolyte Strict input output Continue IV fluids at 75 cc/hour ordered complement c3 and c4, ESR Avoid nephrotoxic agents /precipitants of ATN/interstitial nephritis Needs tight control of diabetes Case discussion with Dr. Kuhn Plan discussed with: Patient, Other THAIS CLEARY RESIDENT Jul 08, 2025 21:27
[2025-07-09] VITALS (8 sets, daily range): BP systolic 116–138; BP diastolic 76–88; PULSE 55–67; RESP 16–20; TEMP 97.4–98.3; O2SAT 94–98
[2025-07-09 07:15] LABS: Hematocrit 36.8 % (36.0-46.0); Hemoglobin 12.7 g/dL (12.2-16.2); Mean Corpuscular Hemoglobin 32.6 pg (28.0-32.0); Mean Corpuscular Volume 94.6 fL (80.0-100.0); Nucleated Red Blood Cells % 0.0 %
[2025-07-09 07:21] LABS: Alanine Aminotransferase 25 U/L (7-40); Albumin 3.3 g/dL (3.2-4.8); Anion Gap 12 (5-15); BUN/Creatinine Ratio 8.2 (10.0-20.0); Carbon Dioxide 23 mmol/L (20-31); Magnesium 1.7 mg/dL (1.6-2.6); Total Protein 6.6 g/dL (5.7-8.2)
[2025-07-09 07:22] LABS: Alkaline Phosphatase 149 U/L (46-116); Bilirubin, Total 0.5 mg/dL (0.2-1.0); Blood Urea Nitrogen 24 mg/dL (9-23); Calcium 8.4 mg/dL (8.7-10.4); Chloride 111 mmol/L (98-107); Glucose 108 mg/dL (74-106); Potassium 3.1 mmol/L (3.5-5.1); Sodium 146 mmol/L (136-145)
[2025-07-09] MEDS: POTASSIUM EFFERVESENT TAB 25 MEQ PO ONE (10:26)
[2025-07-09] MEDS: SODIUM CHLORIDE 0.9% 1,000 ML IV SCH (10:41)
--- NOTE | 2025-07-09 11:47 | DVHPN2 ---
Progress Note Date Seen: Jul 09, 2025 Medical Necessity Reason Pt with a Central, PICC or Fol: No Objective vital signs Vital Sign Date Time Temp Pulse Resp B/P (MAP) Pulse Ox O2 Delivery O2 Flow Rate FiO2 07/09/25 09:26 97.8 57 17 125/88 (100) 94 97.8 07/09/25 08:00 Room Air* 0 21 Total Intake and Output 07/08/25 07/08/25 07/09/25 15:00 23:00 07:00 Intake Total 1000 ml 500 ml 900 ml Balance 1000 ml 500 ml 900 ml medications Current Medications Medications Dose Ordered Sig/Hector Route Start Time Stop Time Status Last Admin Dose Admin Ondansetron HCl 4 mg Q4HP PRN IV 07/06/25 23:00 07/07/25 23:28 4 MG Docusate Sodium 100 mg BIDPRN PRN PO 07/06/25 23:00 Diagnostic Test (Pha) 1 strip Q6HR 07/07/25 06:00 07/09/25 05:43 1 STRIP Insulin Human Regular Q6HR SC 07/07/25 06:00 Dextrose 50 ml UD PRN IV 07/07/25 02:15 Ampicillin Sodium/ Sulbactam Sodium 3 gm/Sodium Chloride 100 ml @ 100 mls/hr Q24H IV 07/08/25 10:00 07/09/25 10:15 100 MLS/HR Tramadol HCl 50 mg Q4HP PRN PO 07/07/25 02:45 07/09/25 10:14 50 MG Heparin Sodium (Porcine) 5,000 units Q12HR SC 07/07/25 10:00 07/09/25 10:25 5,000 UNITS Acetaminophen 500 mg Q8HP PRN PO 07/07/25 10:00 07/07/25 11:34 500 MG Pantoprazole Sodium 40 mg DAILY IV 07/07/25 22:30 07/09/25 10:15 40 MG Morphine Sulfate 1 mg Q6HP PRN IV 07/07/25 23:15 07/07/25 23:29 1 MG Sodium Chloride 1,000 ml @ 50 mls/hr Q20H IV 07/09/25 09:30 07/09/25 10:41 50 MLS/HR laboratory and microbiology Laboratory Tests 07/09/25 06:29 Test 07/09/25 06:29 Range/Units Serum Glucose 108 H 74-106 mg/dL Problem List/Assessment/Plan Problem List/Assessment/Plan 07/09/25pain has dissipated, abdomen nontender., no indication for emergency surgical intervention, she can be discharged and return to see me as outpatient Plan discussed with: Patient CHILO DOS SANTOS MD Jul 09, 2025 11:47
--- NOTE | 2025-07-09 16:41 | DVHPN2 ---
Progress Note Date Seen: Jul 09, 2025 Resident Creating Document: THAIS CLEARY RESIDENT Medical Necessity Reason Pt with a Central, PICC or Fol: No Subjective Review of Systems History of Present Illness 60 year old female with past medical history of new onset diabetes mellitus, rheumatoid arthritis, obesity presented with complaints of generalized weakness associated with nausea, vomiting, diarrhea, and headaches for last three days. She also complains of mild right shoulder pain, and dizziness when she gets up since 4 days. Patient had a recent admission for a soft tissue infection abscess, where patient received vancomycin and Zosyn and labs showed elevations of creatinine levels. Patient seen and examined at bedside. Mentioned no active symptoms, went for MRCP for suspicion for choledocholithiasis. Nephrology was consulted for PACO Patient does not know her baseline kidney function Past medical history New onset diabetes mellitus, rheumatoid arthritis, obesity past surgical history Denied any recent surgery Social history Patient denied smoking, alcohol, marijuana or any other drug intake Family history Nonsignificant Medication history Patient does not take any medication Allergic history No known allergies Interval Events 07/08/25 pt seen and examined at bedside. no other active complaints Objective vital signs Vital Sign Date Time Temp Pulse Resp B/P (MAP) Pulse Ox O2 Delivery O2 Flow Rate FiO2 07/09/25 14:19 97.4 55 17 138/88 (105) 97 97.4 07/09/25 08:00 Room Air* 0 21 Total Intake and Output 07/08/25 07/08/25 07/09/25 15:00 23:00 07:00 Intake Total 1000 ml 500 ml 900 ml Balance 1000 ml 500 ml 900 ml medications Current Medications Medications Dose Ordered Sig/Hector Route Start Time Stop Time Status Last Admin Dose Admin Ondansetron HCl 4 mg Q4HP PRN IV 07/06/25 23:00 07/09/25 12:37 4 MG Docusate Sodium 100 mg BIDPRN PRN PO 07/06/25 23:00 Diagnostic Test (Pha) 1 strip Q6HR 07/07/25 06:00 07/09/25 12:00 1 STRIP Insulin Human Regular Q6HR SC 07/07/25 06:00 Dextrose 50 ml UD PRN IV 07/07/25 02:15 Ampicillin Sodium/ Sulbactam Sodium 3 gm/Sodium Chloride 100 ml @ 100 mls/hr Q24H IV 07/08/25 10:00 07/09/25 10:15 100 MLS/HR Tramadol HCl 50 mg Q4HP PRN PO 07/07/25 02:45 07/09/25 14:15 50 MG Heparin Sodium (Porcine) 5,000 units Q12HR SC 07/07/25 10:00 07/09/25 10:25 5,000 UNITS Acetaminophen 500 mg Q8HP PRN PO 07/07/25 10:00 07/07/25 11:34 500 MG Pantoprazole Sodium 40 mg DAILY IV 07/07/25 22:30 07/09/25 10:15 40 MG Morphine Sulfate 1 mg Q6HP PRN IV 07/07/25 23:15 07/07/25 23:29 1 MG Sodium Chloride 1,000 ml @ 50 mls/hr Q20H IV 07/09/25 16:45 UNV Examination Examination General Appearance: Alert, Oriented X3, Cooperative, No acute distress HEENT: EOMI Respiratory: Clear to auscultation, Normal air movement Cardiovascular: Regular rate, Normal S1, Normal S2 Abdominal: Normal bowel sounds Extremities: No cyanosis, No edema, Normal pulses, No tenderness/swelling Skin: No rashes, No breakdown Neuro: Normal speech and tone laboratory and microbiology Laboratory Tests 07/09/25 06:29 Test 07/09/25 06:29 Range/Units Serum Glucose 108 H 74-106 mg/dL Microbiology Date/Time Source Procedure Growth Status 07/08/25 14:37 Elbow Right Gram Stain - Final Resulted 07/08/25 14:37 Elbow Right Wound Culture - Preliminary Resulted 07/07/25 23:15 Blood Blood Culture - Preliminary NO GROWTH AFTER 24 HOURS OF INCUBATION. Resulted Labs and/or images reviewed: Labs reviewed by me, Image(s) reviewed by me Problem List/Assessment/Plan Problem List/Assessment/Plan Assessment # Acute kidney injury likely due to ATN due to recent vancomycin/Zosyn toxicity Kidney function improved from creatinine of 3.46 to 2.91 FENA 5.2% Baseline GFR is 104, labs 06/28/2025 # hypernatremia mild, levels 146 # new onset diabetes mellitus, uncontrolled # rheumatoid arthritis # obesity Plan Monitor kidney function and electrolyte Strict input output Kidney function Improving change IV fluids to 1/2 NS @ 50 cc/hour ordered complement c3 and c4, ESR Avoid nephrotoxic agents /precipitants of ATN/interstitial nephritis Needs tight control of diabetes Case discussion with Dr. Kuhn Plan discussed with: Patient, Other My Orders My Orders Orders - THAIS CLEARY RESIDENT Procedure Category Date Status Time 11/07 Ns PHA 07/09/25 Transmitted 16:45 Basic Metabolic Panel LAB 07/10/25 Verified 04:00 Magnesium LAB 07/10/25 Verified 04:00 Dietary Evaluation Review Comments: Provided brief DM education to pt CCHO-60 mechanical soft diet Encourage optimal protein intake Expected Outcomes/Goals: controlled blood sugar, healed wounds, gradual wt loss THAIS CLEARY RESIDENT Jul 09, 2025 16:41
--- NOTE | 2025-07-09 17:18 | DVHPNRES ---
Progress Note Date Seen: Jul 09, 2025 Resident Creating Document: JASEN CHÁVEZ RESIDENT Medical Necessity Reason Pt with a Central, PICC or Fol: No Subjective Review of Systems Judy Najera is a 60-year-old female who presents to the ED with chief complaints of generalized weakness, nausea, nonbloody emesis, diarrhea, headaches three days before her admission. Patient was recently admitted for a soft tissue infection abscess which was drained on the right elbow. Patient also reports mild right shoulder pain, dizziness when stand ups. Denies any weakness in her proximal muscles, denies any rashes, sick contacts, travel. Past medical history: Diabetes mellitus, right elbow abscess status post incision and drainage, questionable rheumatoid arthritis per patient. Surgical history: , tubal ligation Family history: Noncontributory Social history: Lives in [place] with family. Denies current tobacco, alcohol and other drug abuse. Allergies: Denies Home medications: Levofloxacin for right elbow abscess drainage, Neches for pain Patient was seen and examined at bedside today. Overnight events were reviewed. She denies any chest pain, shortness of breath, fever, abdominal pain, nausea, vomiting or any other complaints. Progress tired from NPO to clear liquid based on HIDA scan negative for acute cholecystitis. Objective vital signs Vital Sign Date Time Temp Pulse Resp B/P (MAP) Pulse Ox O2 Delivery O2 Flow Rate FiO2 07/09/25 14:19 97.4 55 17 138/88 (105) 97 97.4 07/09/25 08:00 Room Air* 0 21 Total Intake and Output 07/08/25 07/08/25 07/09/25 15:00 23:00 07:00 Intake Total 1000 ml 500 ml 900 ml Balance 1000 ml 500 ml 900 ml medications Current Medications Medications Dose Ordered Sig/Hector Route Start Time Stop Time Status Last Admin Dose Admin Ondansetron HCl 4 mg Q4HP PRN IV 07/06/25 23:00 07/09/25 12:37 4 MG Docusate Sodium 100 mg BIDPRN PRN PO 07/06/25 23:00 Diagnostic Test (Pha) 1 strip Q6HR 07/07/25 06:00 07/09/25 12:00 1 STRIP Insulin Human Regular Q6HR SC 07/07/25 06:00 Dextrose 50 ml UD PRN IV 07/07/25 02:15 Ampicillin Sodium/ Sulbactam Sodium 3 gm/Sodium Chloride 100 ml @ 100 mls/hr Q24H IV 07/08/25 10:00 07/09/25 10:15 100 MLS/HR Tramadol HCl 50 mg Q4HP PRN PO 07/07/25 02:45 07/09/25 14:15 50 MG Heparin Sodium (Porcine) 5,000 units Q12HR SC 07/07/25 10:00 07/09/25 10:25 5,000 UNITS Acetaminophen 500 mg Q8HP PRN PO 07/07/25 10:00 07/07/25 11:34 500 MG Pantoprazole Sodium 40 mg DAILY IV 07/07/25 22:30 07/09/25 10:15 40 MG Morphine Sulfate 1 mg Q6HP PRN IV 07/07/25 23:15 07/07/25 23:29 1 MG Sodium Chloride 1,000 ml @ 50 mls/hr Q20H IV 07/09/25 16:45 Examination Pt is lying on bed General Appearance: Alert, Oriented X3, Cooperative, Mild distress HEENT: Atraumatic, Mucous membranes moist/pink Respiratory: Clear to auscultation, Normal air movement, No added sounds Cardiovascular: Regular rate, Normal S1, Normal S2, No murmurs Abdominal/ : Active bowel sounds, Soft, no distention, no tenderness Extremities: No edema, Normal pulses, No tenderness/swelling Skin: No Significant rash, except past surgical scars Neuro: Normal speech, sensorimotor deficits none Psych/Mental Status: Mental status NL, Mood NL Nurse was there as anode builder during examination laboratory and microbiology Laboratory Tests 07/09/25 06:29 Test 07/09/25 06:29 Range/Units Serum Glucose 108 H 74-106 mg/dL Microbiology Date/Time Source Procedure Growth Status 07/08/25 14:37 Elbow Right Gram Stain - Final Resulted 07/08/25 14:37 Elbow Right Wound Culture - Preliminary Resulted 07/07/25 23:15 Blood Blood Culture - Preliminary NO GROWTH AFTER 24 HOURS OF INCUBATION. Resulted Labs and/or images reviewed: Labs reviewed by me, Image(s) reviewed by me Problem List/Assessment/Plan Problem List/Assessment/Plan #Intractable Abdominal pain due to cholelithiasis #Hepatic steatosis #Hepatomegaly #Ruled out choledocholithiasis #Ruled out cholecystitis Abdominal ultrasound: CBD dilated 8 cm, cholelithiasis hepatic steatosis, hepatomegaly MRCP: Cholelithiasis, no choledocholithiasis IV fluid and pain management with Neches and tramadol Ondansetron for nausea and vomiting Ampicillin sulbactam Surgery consult done: HIDA scan ruled outacute cholecystitis. No need of emergent surgery at this time. Diet advanced to clear liquid #Sepsis due to right elbow wound with abscess status post soft tissue abscess drainage IV ampicillin sulbactam 3 g daily Wound care on board. #Acute kidney injury likely due to ATN due to recent vancomycin/Zosyn toxicity; can not rule out vasomotor nephropathy #Mild hypernatremia Creatinine 3.88 Kidney function improved from creatinine of 3.92 to 3.88 FENA 5.2% indicating kidney injury, not due to prerenal PACO Baseline GFR is 104 has a labs 06/28/2025 IV fluid given Nephrology is following Completed echocardiogram results: Mild left atrial enlargement. Mild RV enlargement. Mild aortic root enlargement. Valves are normal.LVEF 60% with normal RV function. #Uncontrolled diabetes mellitus Recent hemoglobin A1c 13 Insulin sliding scale #Fentanyl positive in UDS; could be related to recent surgical procedure repeat UDS #Questionable rheumatoid arthritis Autoimmune panel showed no compatible antibodies. ESR elevated. GI prophylaxis: Protonix IV DVT prophylaxis: Heparin sodium 5000 q.12 Diet: Clear liquids Goals of care discussed with the patient for more than 27 minutes: Full code status Case discussed with Dr. Perez , patient and RN. Planning on continuing IV fluid treatment and advancing diet. Monitoring kidney function until improvement. Planning discharge to home in 24-48 hours. Plan discussed with: Patient, Other (RN) My Orders My Orders Orders - JASEN CHÁVEZ RESIDENT Procedure Category Date Status Time Mechanical Soft Diet DIET 07/09/25 Transmitted Lunch Dietary Evaluation Review Comments: Provided brief DM education to pt CCHO-60 mechanical soft diet Encourage optimal protein intake Expected Outcomes/Goals: controlled blood sugar, healed wounds, gradual wt loss Date of Service: Jul 09, 2025 Billing Provider: RICHIE PEREZ MD Common Visit Codes: [id number] INP/OBS CARE(HIGH) JASEN CHÁVEZ Jul 09, 2025 17:18 PAULINA YADAV RESIDENT Jul 10, 2025 23:57 RICHIE PEREZ MD Jul 11, 2025 22:40
[2025-07-10] VITALS (8 sets, daily range): BP systolic 91–143; BP diastolic 45–92; PULSE 52–73; RESP 16–20; TEMP 97.6–98.5; O2SAT 93–97
[2025-07-10] MEDS: SOD CHL 0.45% 1,000 ML IV SCH (04:52)
[2025-07-10 07:02] LABS: Hematocrit 37.9 % (36.0-46.0); Hemoglobin 12.7 g/dL (12.2-16.2); Mean Corpuscular Hemoglobin 32.3 pg (28.0-32.0); Mean Corpuscular Volume 96.2 fL (80.0-100.0); Nucleated Red Blood Cells % 0.1 %
[2025-07-10 07:03] LABS: Alanine Aminotransferase 22 U/L (7-40); Albumin 3.3 g/dL (3.2-4.8); Anion Gap 10 (5-15); BUN/Creatinine Ratio 7.1 (10.0-20.0); Blood Urea Nitrogen 18 mg/dL (9-23); Carbon Dioxide 25 mmol/L (20-31); Magnesium 1.6 mg/dL (1.6-2.6); Sodium 142 mmol/L (136-145); Total Protein 6.6 g/dL (5.7-8.2)
[2025-07-10 07:04] LABS: Bilirubin, Total 0.5 mg/dL (0.2-1.0)
[2025-07-10 07:06] LABS: Alkaline Phosphatase 158 U/L (46-116); Calcium 8.7 mg/dL (8.7-10.4); Chloride 107 mmol/L (98-107); Glucose 107 mg/dL (74-106); Potassium 3.2 mmol/L (3.5-5.1)
[2025-07-10] MEDS: SODIUM CHLORIDE 0.9% 1,000 ML IV SCH (09:30)
[2025-07-10] MEDS ORDERED: POTASSIUM CHL 20MEQ/100ML 100 ML IV SCH (09:30)
--- NOTE | 2025-07-10 10:25 | DVHPN2 ---
Progress Note Date Seen: Jul 10, 2025 Resident Creating Document: THAIS CLEARY RESIDENT Medical Necessity Reason Pt with a Central, PICC or Fol: No Subjective Review of Systems 60 year old female with past medical history of new onset diabetes mellitus, rheumatoid arthritis, obesity presented with complaints of generalized weakness associated with nausea, vomiting, diarrhea, and headaches for last three days. She also complains of mild right shoulder pain, and dizziness when she gets up since 4 days. Patient had a recent admission for a soft tissue infection abscess, where patient received vancomycin and Zosyn and labs showed elevations of creatinine levels. Patient seen and examined at bedside. Mentioned no active symptoms, went for MRCP for suspicion for choledocholithiasis. Nephrology was consulted for PACO Patient does not know her baseline kidney function Past medical history New onset diabetes mellitus, rheumatoid arthritis, obesity past surgical history Denied any recent surgery Social history Patient denied smoking, alcohol, marijuana or any other drug intake Family history Nonsignificant Medication history Patient does not take any medication Allergic history No known allergies Interval Events 07/09/25 pt seen and examined at bedside. no other active complaints Objective vital signs Vital Sign Date Time Temp Pulse Resp B/P (MAP) Pulse Ox O2 Delivery O2 Flow Rate FiO2 07/10/25 09:00 98.0 57 16 120/76 (91) 97 98.0 07/10/25 08:00 Room Air* 0 21 Total Intake and Output 07/09/25 07/09/25 07/10/25 15:00 23:00 07:00 Intake Total 100 ml 500 ml 800 ml Output Total 1350 ml Balance 100 ml -850 ml 800 ml medications Current Medications Medications Dose Ordered Sig/Hector Route Start Time Stop Time Status Last Admin Dose Admin Ondansetron HCl 4 mg Q4HP PRN IV 07/06/25 23:00 07/09/25 12:37 4 MG Docusate Sodium 100 mg BIDPRN PRN PO 07/06/25 23:00 Diagnostic Test (Pha) 1 strip Q6HR 07/07/25 06:00 07/10/25 06:07 1 STRIP Insulin Human Regular Q6HR SC 07/07/25 06:00 Dextrose 50 ml UD PRN IV 07/07/25 02:15 Ampicillin Sodium/ Sulbactam Sodium 3 gm/Sodium Chloride 100 ml @ 100 mls/hr Q24H IV 07/08/25 10:00 07/10/25 08:54 100 MLS/HR Tramadol HCl 50 mg Q4HP PRN PO 07/07/25 02:45 07/09/25 20:55 50 MG Heparin Sodium (Porcine) 5,000 units Q12HR SC 07/07/25 10:00 07/10/25 08:52 5,000 UNITS Acetaminophen 500 mg Q8HP PRN PO 07/07/25 10:00 07/07/25 11:34 500 MG Pantoprazole Sodium 40 mg DAILY IV 07/07/25 22:30 07/10/25 08:53 40 MG Morphine Sulfate 1 mg Q6HP PRN IV 07/07/25 23:15 07/07/25 23:29 1 MG Sodium Chloride 1,000 ml @ 50 mls/hr Q20H IV 07/09/25 16:45 07/10/25 04:52 50 MLS/HR Potassium Chloride 100 ml @ 50 mls/hr Q2H IV 07/10/25 09:30 07/10/25 15:29 Sodium Chloride 1,000 ml @ 50 mls/hr Q20H IV 07/10/25 09:30 Examination Examination General Appearance: Alert, Oriented X3, Cooperative, No acute distress HEENT: EOMI Respiratory: Clear to auscultation, Normal air movement Cardiovascular: Regular rate, Normal S1, Normal S2 Abdominal: Normal bowel sounds Extremities: No cyanosis, No edema, Normal pulses, No tenderness/swelling Skin: No rashes, No breakdown Neuro: Normal speech and tone laboratory and microbiology Laboratory Tests 07/10/25 05:44 Test 07/10/25 05:44 Range/Units Serum Glucose 107 H 74-106 mg/dL Microbiology Date/Time Source Procedure Growth Status 07/08/25 14:37 Elbow Right Gram Stain - Final Resulted 07/08/25 14:37 Elbow Right Wound Culture - Preliminary Resulted 07/07/25 23:15 Blood Blood Culture - Preliminary NO GROWTH AFTER 48 HOURS OF INCUBATION. Resulted Labs and/or images reviewed: Labs reviewed by me, Image(s) reviewed by me Problem List/Assessment/Plan Problem List/Assessment/Plan Assessment # Acute kidney injury likely due to ATN due to recent vancomycin/Zosyn toxicity Kidney function improved from creatinine of 2.91 to 2.55 FENA 5.2% Baseline GFR is 104, labs 06/28/2025 # hypernatremia, resolved # new onset diabetes mellitus, uncontrolled # rheumatoid arthritis # obesity Plan Monitor kidney function and electrolyte Strict input output Kidney function Improving IV fluids changed to NS @ 50 cc/hour by the primary team ordered complement c3 and c4, ESR Avoid nephrotoxic agents /precipitants of ATN/interstitial nephritis Needs tight control of diabetes pt is cleared to be discharged from nephrology stand point of view drinkl plenty of water needs outpatient follow up with nephrology Case discussion with Dr. Kuhn Plan discussed with: Patient, Other My Orders My Orders Orders - THAIS CLEARY RESIDENT Procedure Category Date Status Time Sod Chl 0.45% (Sodium PHA 07/09/25 In Process Chloride 0.45% Via 16:45 Dietary Evaluation Review Comments: Provided brief DM education to pt CCHO-60 mechanical soft diet Encourage optimal protein intake Expected Outcomes/Goals: controlled blood sugar, healed wounds, gradual wt loss THAIS CLEARY RESIDENT Jul 10, 2025 10:25
[2025-07-10] MEDS: POTASSIUM CHL 20MEQ/100ML 100 ML IV SCH (11:35)
--- NOTE | 2025-07-10 14:07 | DVHPNRES ---
Progress Note Date Seen: Jul 10, 2025 Resident Creating Document: JASEN CHÁVEZ RESIDENT Medical Necessity Reason Pt with a Central, PICC or Fol: No Subjective Review of Systems Judy Najera is a 60-year-old female who presents to the ED with chief complaints of generalized weakness, nausea, nonbloody emesis, diarrhea, headaches three days before her admission. Patient was recently admitted for a soft tissue infection abscess which was drained on the right elbow. Patient also reports mild right shoulder pain, dizziness when stand ups. Denies any weakness in her proximal muscles, denies any rashes, sick contacts, travel. Past medical history: Diabetes mellitus, right elbow abscess status post incision and drainage, questionable rheumatoid arthritis per patient. Surgical history: , tubal ligation Family history: Noncontributory Social history: Lives in [place] with family. Denies current tobacco, alcohol and other drug abuse. Allergies: Denies Home medications: Levofloxacin for right elbow abscess drainage, Melstone for pain Patient was seen and examined at bedside today. Overnight events were reviewed. Patient reports having some nausea with ingestion of food. She denies any chest pain, fever, sob or any other complaints today. Objective vital signs Vital Sign Date Time Temp Pulse Resp B/P (MAP) Pulse Ox O2 Delivery O2 Flow Rate FiO2 07/10/25 09:00 98.0 57 16 120/76 (91) 97 98.0 07/10/25 08:00 Room Air* 0 21 Total Intake and Output 07/09/25 07/09/25 07/10/25 14:59 22:59 06:59 Intake Total 100 ml 500 ml 800 ml Output Total 1350 ml Balance 100 ml -850 ml 800 ml medications Current Medications Medications Dose Ordered Sig/Hector Route Start Time Stop Time Status Last Admin Dose Admin Ondansetron HCl 4 mg Q4HP PRN IV 07/06/25 23:00 07/09/25 12:37 4 MG Docusate Sodium 100 mg BIDPRN PRN PO 07/06/25 23:00 Diagnostic Test (Pha) 1 strip Q6HR 07/07/25 06:00 07/10/25 11:33 1 STRIP Insulin Human Regular Q6HR SC 07/07/25 06:00 07/10/25 11:34 2 UNITS Dextrose 50 ml UD PRN IV 07/07/25 02:15 Ampicillin Sodium/ Sulbactam Sodium 3 gm/Sodium Chloride 100 ml @ 100 mls/hr Q24H IV 07/08/25 10:00 07/10/25 08:54 100 MLS/HR Tramadol HCl 50 mg Q4HP PRN PO 07/07/25 02:45 07/09/25 20:55 50 MG Heparin Sodium (Porcine) 5,000 units Q12HR SC 07/07/25 10:00 07/10/25 08:52 5,000 UNITS Acetaminophen 500 mg Q8HP PRN PO 07/07/25 10:00 07/07/25 11:34 500 MG Pantoprazole Sodium 40 mg DAILY IV 07/07/25 22:30 07/10/25 08:53 40 MG Morphine Sulfate 1 mg Q6HP PRN IV 07/07/25 23:15 07/07/25 23:29 1 MG Sodium Chloride 1,000 ml @ 50 mls/hr Q20H IV 07/09/25 16:45 07/10/25 12:46 50 MLS/HR Potassium Chloride 100 ml @ 50 mls/hr Q2H IV 07/10/25 09:30 07/10/25 15:29 07/10/25 12:46 50 MLS/HR Sodium Chloride 1,000 ml @ 50 mls/hr Q20H IV 07/10/25 09:30 Examination Pt is lying on bed General Appearance: Alert, Oriented X3, Cooperative, Mild distress HEENT: Atraumatic, Mucous membranes moist/pink Respiratory: Clear to auscultation, Normal air movement, No added sounds Cardiovascular: Regular rate, Normal S1, Normal S2, No murmurs Abdominal/ : Active bowel sounds, Soft, no distention, no tenderness Extremities: No edema, Normal pulses, No tenderness/swelling Skin: No Significant rash, except past surgical scars Neuro: Normal speech, sensorimotor deficits none Psych/Mental Status: Mental status NL, Mood NL Nurse was there as teen counselor during examination laboratory and microbiology Laboratory Tests 07/10/25 05:44 Test 07/10/25 05:44 Range/Units Serum Glucose 107 H 74-106 mg/dL Microbiology Date/Time Source Procedure Growth Status 07/08/25 14:37 Elbow Right Gram Stain - Final Resulted 07/08/25 14:37 Elbow Right Wound Culture - Preliminary Resulted 07/07/25 23:15 Blood Blood Culture - Preliminary NO GROWTH AFTER 48 HOURS OF INCUBATION. Resulted Problem List/Assessment/Plan Problem List/Assessment/Plan #Intractable Abdominal pain due to cholelithiasis #Hepatic steatosis #Hepatomegaly #Ruled out choledocholithiasis #Ruled out cholecystitis Abdominal ultrasound: CBD dilated 8 cm, cholelithiasis hepatic steatosis, hepatomegaly MRCP: Cholelithiasis, no choledocholithiasis IV fluid and pain management with Melstone and tramadol Ondansetron for nausea and vomiting Ampicillin sulbactam Surgery consult done: HIDA scan ruled outacute cholecystitis. No need of emergent surgery at this time. Diet advanced to mechanical soft #Sepsis due to right elbow wound with abscess status post soft tissue abscess drainage IV ampicillin sulbactam 3 g daily Wound care on board. Ordered ultrasound of right elbow to rule out collection #Acute kidney injury likely due to ATN due to recent vancomycin/Zosyn toxicity; can not rule out vasomotor nephropathy #Mild hypernatremia Creatinine 3.88 Kidney function improved from creatinine of 3.92 to 3.88 FENA 5.2% indicating kidney injury, not due to prerenal PACO Baseline GFR is 104 has a labs 06/28/2025 IV fluid given Nephrology is following Completed echocardiogram results: Mild left atrial enlargement. Mild RV enlargement. Mild aortic root enlargement. Valves are normal.LVEF 60% with normal RV function. #Uncontrolled diabetes mellitus Recent hemoglobin A1c 13 Insulin sliding scale #Fentanyl positive in UDS; could be related to recent surgical procedure repeat UDS #Questionable rheumatoid arthritis Autoimmune panel showed no compatible antibodies. ESR elevated. GI prophylaxis: Protonix IV DVT prophylaxis: Heparin sodium 5000 q.12 Diet: Mechanical soft Goals of care discussed with the patient for more than 27 minutes: Full code status Case discussed with Dr. Perez , patient and RN. Planning on continuing IV fluid treatment and advancing diet. Monitoring kidney function until improvement. Planning discharge to home in 24hours. Plan discussed with: Patient, Other (RN) My Orders My Orders Orders - JASEN CHÁVEZ RESIDENT Procedure Category Date Status Time Sodium Chloride 0.9% PHA 07/10/25 In Process 09:30 Dietary Evaluation Review Comments: Provided brief [facility] education [facility] Encourage optimal protein intake Expected Outcomes/Goals: controlled blood sugar, healed wounds, gradual wt loss JASEN CHÁVEZ RESIDENT Jul 10, 2025 14:07 PAULINA YADAV RESIDENT Jul 11, 2025 00:04
[2025-07-11 01:08] VITALS: BP 103/63; PULSE 68; RESP 19; TEMP 98.1; O2SAT 95
--- NOTE | 2025-07-11 04:14 | DVH ---
Right elbow ultrasound Clinical History: Right elbow abscess. Comparison: MRI MRI R ELBOW WO CONTRAST on DOS: 06/26/25 Technique: Ultrasound of the right elbow soft tissues was obtained. Findings: There is fluid and soft tissue swelling along the posterior surface of the elbow. Impression: Soft tissue swelling and feterogeneous echotexture of the soft tissues in the posterior elbow suggest freya of phlegmon. A small abscess in the Posterior Elbow is not excluded on the dynamic images.
[2025-07-11 05:28] VITALS: BP 109/71; PULSE 57; RESP 19; TEMP 98.3; O2SAT 96
[2025-07-11 07:48] LABS: Hematocrit 37.5 % (36.0-46.0); Hemoglobin 13.3 g/dL (12.2-16.2); Mean Corpuscular Hemoglobin 33.2 pg (28.0-32.0); Mean Corpuscular Volume 93.9 fL (80.0-100.0); Nucleated Red Blood Cells % 0.1 %
[2025-07-11 07:53] LABS: Anion Gap 10 (5-15); Carbon Dioxide 27 mmol/L (20-31); Chloride 105 mmol/L (98-107); Sodium 142 mmol/L (136-145)
[2025-07-11 07:57] LABS: Calcium 8.6 mg/dL (8.7-10.4); Potassium 3.1 mmol/L (3.5-5.1)
[2025-07-11 07:59] LABS: Glucose 103 mg/dL (74-106)
[2025-07-11 08:00] VITALS: PULSE 60; RESP 16; O2SAT 97
[2025-07-11 08:00] LABS: BUN/Creatinine Ratio 7.3 (10.0-20.0); Blood Urea Nitrogen 18 mg/dL (9-23)
[2025-07-11 09:00] VITALS: BP 126/81; PULSE 65; RESP 17; TEMP 98.4; O2SAT 99
[2025-07-11] MEDS ORDERED: AMOX500T86 PO (11:19)
[2025-07-11] MEDS ORDERED: INSREGI SC (11:19)
[2025-07-11] MEDS ORDERED: DOCU-265 PO (11:19)
[2025-07-11] MEDS ORDERED: METF-370 PO (11:20)
[2025-07-11] MEDS ORDERED: ZOFR4T PO (11:29)
--- NOTE | 2025-07-11 12:24 | DVHPN2 ---
Progress Note Date Seen: Jul 11, 2025 Resident Creating Document: THAIS CLEARY RESIDENT Medical Necessity Reason Pt with a Central, PICC or Fol: No Subjective Review of Systems 60 year old female with past medical history of new onset diabetes mellitus, rheumatoid arthritis, obesity presented with complaints of generalized weakness associated with nausea, vomiting, diarrhea, and headaches for last three days. She also complains of mild right shoulder pain, and dizziness when she gets up since 4 days. Patient had a recent admission for a soft tissue infection abscess, where patient received vancomycin and Zosyn and labs showed elevations of creatinine levels. Patient seen and examined at bedside. Mentioned no active symptoms, went for MRCP for suspicion for choledocholithiasis. Nephrology was consulted for PACO Patient does not know her baseline kidney function Past medical history New onset diabetes mellitus, rheumatoid arthritis, obesity past surgical history Denied any recent surgery Social history Patient denied smoking, alcohol, marijuana or any other drug intake Family history Nonsignificant Medication history Patient does not take any medication Allergic history No known allergies Interval Events 07/11/25 pt seen and examined at bedside. no other active complaints Objective vital signs Vital Sign Date Time Temp Pulse Resp B/P (MAP) Pulse Ox O2 Delivery O2 Flow Rate FiO2 07/11/25 09:00 98.4 65 17 126/81 (96) 99 98.4 07/11/25 08:00 Room Air* 0 21 Total Intake and Output 07/10/25 07/10/25 07/11/25 15:00 23:00 07:00 Intake Total 100 ml 1600 ml 800 ml Output Total 700 ml Balance 100 ml 900 ml 800 ml medications Current Medications Medications Dose Ordered Sig/Hector Route Start Time Stop Time Status Last Admin Dose Admin Ondansetron HCl 4 mg Q4HP PRN IV 07/06/25 23:00 07/09/25 12:37 4 MG Docusate Sodium 100 mg BIDPRN PRN PO 07/06/25 23:00 Diagnostic Test (Pha) 1 strip Q6HR 07/07/25 06:00 07/11/25 05:47 1 STRIP Insulin Human Regular Q6HR SC 07/07/25 06:00 07/10/25 11:34 2 UNITS Dextrose 50 ml UD PRN IV 07/07/25 02:15 Ampicillin Sodium/ Sulbactam Sodium 3 gm/Sodium Chloride 100 ml @ 100 mls/hr Q24H IV 07/08/25 10:00 07/11/25 09:51 100 MLS/HR Tramadol HCl 50 mg Q4HP PRN PO 07/07/25 02:45 07/11/25 11:11 50 MG Heparin Sodium (Porcine) 5,000 units Q12HR SC 07/07/25 10:00 07/11/25 09:52 5,000 UNITS Acetaminophen 500 mg Q8HP PRN PO 07/07/25 10:00 07/07/25 11:34 500 MG Pantoprazole Sodium 40 mg DAILY IV 07/07/25 22:30 07/11/25 09:51 40 MG Morphine Sulfate 1 mg Q6HP PRN IV 07/07/25 23:15 07/07/25 23:29 1 MG Sodium Chloride 1,000 ml @ 50 mls/hr Q20H IV 07/10/25 09:30 07/11/25 05:47 50 MLS/HR Examination Examination General Appearance: Alert, Oriented X3, Cooperative, No acute distress HEENT: EOMI Respiratory: Clear to auscultation, Normal air movement Cardiovascular: Regular rate, Normal S1, Normal S2 Abdominal: Normal bowel sounds Extremities: No cyanosis, No edema, Normal pulses, No tenderness/swelling Skin: No rashes, No breakdown Neuro: Normal speech and tone laboratory and microbiology Laboratory Tests 07/11/25 06:30 07/11/25 06:20 Test 07/11/25 06:30 Range/Units Serum Glucose 103 74-106 mg/dL Microbiology Date/Time Source Procedure Growth Status 07/08/25 14:37 Elbow Right Gram Stain - Final Complete 07/08/25 14:37 Wound Culture - Final Staphylococcus aureus Complete 07/07/25 23:15 Blood Blood Culture - Preliminary NO GROWTH AFTER 72 HOURS OF INCUBATION. Resulted Labs and/or images reviewed: Labs reviewed by me, Image(s) reviewed by me Problem List/Assessment/Plan Problem List/Assessment/Plan Assessment # Acute kidney injury likely due to ATN due to recent vancomycin/Zosyn toxicity Kidney function improved from creatinine of 2.55 to 2.47 FENA 5.2% Baseline GFR is 104, labs 06/28/2025 # hypernatremia, resolved # new onset diabetes mellitus, uncontrolled # rheumatoid arthritis # obesity Plan Monitor kidney function and electrolyte Strict input output Kidney function Improving IV fluids changed to NS @ 50 cc/hour by the primary team ordered complement c3 and c4, ESR Avoid nephrotoxic agents /precipitants of ATN/interstitial nephritis Needs tight control of diabetes pt is cleared to be discharged from nephrology stand point of view drink plenty of water needs outpatient follow up with nephrology Case discussion with Dr. Kuhn Plan discussed with: Patient, Other Dietary Evaluation Review Comments: Provided brief DM education to pt [facility]-60 mechanical soft diet Encourage optimal protein intake Expected Outcomes/Goals: controlled blood sugar, healed wounds, gradual wt loss THAIS CLEARY RESIDENT Jul 11, 2025 12:24
[2025-07-11 13:00] VITALS: BP 135/86; PULSE 59; RESP 16; TEMP 97.5; O2SAT 92
[2025-07-11] MEDS: POTASSIUM EFFERVESENT TAB 25 MEQ PO ONE (13:00)
--- NOTE | 2025-07-11 14:12 | DVHDSRES ---
Discharge Summary Date of Admission Resident Creating Document: JASEN CHÁVEZ Jul 06, 2025 at 22:57 Date of Discharge: Jul 11, 2025 Labs/Diagnostic Data: Laboratory Results Test 07/11/25 12:09 07/11/25 06:30 07/11/25 06:20 07/10/25 05:44 POC Glucose 152 mg/dl (70-106) Sodium Level 142 mmol/L (136-145) Potassium Level 3.1 mmol/L (3.5-5.1) Chloride Level 105 mmol/L (98-107) Carbon Dioxide Level 27 mmol/L (20-31) Anion Gap 10 (5-15) Blood Urea Nitrogen 18 mg/dL (9-23) Creatinine 2.47 mg/dL (0.550-1.02) Glomerular Filtration Rate Calc 22 mL/min (>90) BUN/Creatinine Ratio 7.3 (10.0-20.0) Serum Glucose 103 mg/dL (74-106) Calcium Level 8.6 mg/dL (8.7-10.4) White Blood Count 5.0 10^3/uL (4.4-10.8) Red Blood Count 4.00 10^6/uL (4.0-5.20) Hemoglobin 13.3 g/dL (12.2-16.2) Hematocrit 37.5 % (36.0-46.0) Mean Corpuscular Volume 93.9 fL (80.0-100.0) Mean Corpuscular Hemoglobin 33.2 pg (28.0-32.0) Mean Corpuscular Hemoglobin Concent 35.4 g/dL (32.0-36.0) Red Cell Distribution Width 13.2 % (11.8-14.3) Platelet Count 180 10^3/uL (140-450) Mean Platelet Volume 8.3 fL (6.9-10.8) Neutrophils (%) (Auto) 54.8 % (37.0-80.0) Lymphocytes (%) (Auto) 30.2 % (10.0-50.0) Monocytes (%) (Auto) 10.1 % (0.0-12.0) Eosinophils (%) (Auto) 4.1 % (0.0-7.0) Basophils (%) (Auto) 0.8 % (0.0-2.0) Neutrophils # (Auto) 2.8 10 ^3/uL (1.6-8.6) Lymphocytes # (Auto) 1.5 10 ^3/uL (0.4-5.4) Monocytes # (Auto) 0.5 10 ^3/uL (0-1.3) Eosinophils # (Auto) 0.2 10 ^3/uL (0-0.8) Basophils # (Auto) 0 10 ^3/uL (0-0.2) Nucleated Red Blood Cells 0.1 % Magnesium Level 1.6 mg/dL (1.6-2.6) Total Bilirubin 0.5 mg/dL (0.2-1.0) Aspartate Amino Transferase (AST) 42 U/L (13-40) Alanine Aminotransferase (ALT) 22 U/L (7-40) Alkaline Phosphatase 158 U/L (46-116) Total Protein 6.6 g/dL (5.7-8.2) Albumin 3.3 g/dL (3.2-4.8) Test 07/08/25 09:48 07/07/25 05:21 07/07/25 04:22 07/07/25 01:45 Erythrocyte Sedimentation Rate 82 mm/hr (0-20) Complement C3 162 mg/dL (82-167) Complement C4 20 mg/dL (12-38) Urine RBC None seen /hpf (0 - 4) Urine Microscopic WBC < 1 /HPF (0-5) Urine Squamous Epithelial Cells None seen /hpf (<5) Urine Bacteria None seen /hpf (None Seen) Urine Osmolality 280 mOsm/kg Urine Creatinine 39.96 mg/dL (30.0-125.0) Urine Protein/Creatinine Ratio 0.33 Urine Sodium 74 mmol/L (40-220) Urine Potassium 19 mmol/L (12-62) Urine Total Protein 13.1 mg/dL (1-14) Urine Opiates Screen Neg (NEGATIVE) Urine Fentanyl Screen Pos (NEGATIVE) Urine Barbiturates Screen Neg (NEGATIVE) Urine Phencyclidine Screen Neg (NEGATIVE) Urine Amphetamines Screen Neg (NEGATIVE) Urine Benzodiazepines Screen Neg (NEGATIVE) Urine Cocaine Screen Neg (NEGATIVE) Urine Cannabinoids Screen Neg (NEGATIVE) Lactic Acid Level 1.2 mmol/L (0.4-2.0) Ammonia 12 umol/L (11-32) Hepatitis A Antibody Total Positive (Negative) Hepatitis B Surface Antigen Negative (Negative) Hepatitis B Surface Antibody Negative (Negative) Hepatitis B Core Total Antibody React (Negative) Hepatitis C Antibody Negative (Negative) Prothrombin Time 11.4 sec (9.3-11.8) Prothrombin Time INR 1.08 (0.9-1.15) Activated Partial Thromboplast Time 27.4 SEC (24.5-34.5) Uric Acid 7.6 mg/dL (3.1-7.8) Phosphorus Level 4.6 mg/dL (2.4-5.1) Direct Bilirubin 0.2 mg/dL (<0.3) Creatine Kinase 22 U/L (34-145) Anti-Nuclear Antibody Comment Comment (.) BRANDY-1 Antibody <0.2 AI (0.0-0.9) SS-A/Ro Antibody <0.2 AI (0.0-0.9) SS-B/La Antibody <0.2 AI (0.0-0.9) Sm Antibody <0.2 AI (0.0-0.9) [employer] Antibody 0.7 AI (0.0-0.9) Scl-70 (Scleroderma) Antibody <0.2 AI (0.0-0.9) Anti-Double Strand DNA Antibody 1 IU/mL (0-9) Chromatin Antibody <0.2 AI (0.0-0.9) Centromere B Antibody <0.2 AI (0.0-0.9) Test 07/06/25 13:31 Urine Color Colorless (Yellow) Urine Clarity Clear (Clear) Urine pH 6.0 (5.0-9.0) Urine Specific [place] 1.006 (1.001-1.035) Urine Protein Negative (Negative) Urine Ketones Negative (Negative) Urine Blood Negative /uL (Negative) Urine Nitrite Negative (Negative) Urine Bilirubin Negative (Negative) Urine Urobilinogen Normal mg/dL (Negative) Urine Leukocyte Esterase Negative /uL (Negative) Urine Glucose Normal mg/dL (Normal) Other Laboratory Tests 07/11/25 06:30 07/11/25 06:20 Brief Hx & Hospital Course: 60-year-old female with past medical history of diabetes mellitus who presents to the ED with chief complaints of generalized weakness, nausea, nonbloody emesis, headaches 3 days before the admission. Patient was recently admitted for a soft tissue infection abscess which was drained on the right elbow. Patient also reports mild right shoulder pain, dizziness when standing up. Right upper extremity ultrasound showed soft tissue swelling and heterogeneous echotexture of the soft tissues in the posterior elbow suggestive of phlegmon. A small abscess in the Posterior Elbow is not excluded on the dynamic images. He was started on IV ampicillin and sulbactam and wound care was provided. Patient developed acute kidney injury likely due to acute tubular necrosis from recent vancomycin and Zosyn exposure due to the rectal biopsies, with a FENa of 5.2% supporting intrinsic renal injury. Her creatinine improved from 3.92-2.47 during admission. Nephrology was consulted and followed her renal function closely. The day of discharge nephrology advised her to increase fluid intake and follow up outpatient. Patient is hemodynamically stable, understood the discharge plan and She also had uncontrolled diabetes mellitus with hemoglobin A1c of 13. She was on insulin sliding scale. The echocardiogram mild left atrial, right ventricular and aortic root enlargement. LV ejection fraction 60% and normal wall function. She was given DVT prophylaxis with heparin and GI prophylaxis with pantoprazole. Pt is lying on bed General Appearance: Alert, Oriented X3, Cooperative, Mild distress HEENT: Atraumatic, Mucous membranes moist/pink Respiratory: Clear to auscultation, Normal air movement, No added sounds Cardiovascular: Regular rate, Normal S1, Normal S2, No murmurs Abdominal/ : Active bowel sounds, Soft, no distention, no tenderness Extremities: No edema, Normal pulses, right elbow dry, clean bandage Skin: No Significant rash, except past surgical scars Neuro: Normal speech, sensorimotor deficits none Psych/Mental Status: Mental status NL, Mood NL Nurse was there as screw machine set up operator during examination Condition at Discharge: Stable Final Diagnosis/Problems List ATN due to nephrotoxic antibiotics Status post right elbow abscess drainage Uncontrolled diabetes mellitus Discharge Disposition: Home Discharge Instruct/Medications Diet: Consistent carbohydrate, Cardiac 2g Na,low cholest Activity: No Restrictions, As Tolerated Follow Up/Referral: Follow up with nephrology and cardiology in a week Medications: as per EMR Scheduled Amoxicillin & Pot Clavulanate (Augmentin), 500 MG PO BID Insulin Regular (Human) (Novolin R), 0 UNITS SC Q6HR Levofloxacin Hemihydrate (Levaquin 500 Mg), 1 TAB PO DAILY Metformin Hydrochloride (Metformin Hcl), 500 MG PO BID Scheduled PRN Docusate Sodium (Docusate Sodium), 100 MG PO BIDPRN PRN Hydrocodone-Acetaminophen (Hydrocodone Bitartrate/AC 5-325 mg), 1 TAB PO Q4HP PRN Ondansetron Odt 4MG Tab (Zofran Po), 4 MG PO BID PRN Durable Medical Equipment Blood Glucose Monitoring Suppl (Blood Glucose System Trevor), UNIT XX, (DME) Blood Glucose Monitoring Suppl (D-Care Glucometer Kit/Glu W/Device), KIT XX, (DME) Discharge Statement: "Patient was advised to return to the ER or call 911 if any headaches, dizziness, shortness of breath, chest pain, abdominal pain, bleeding, fevers, or worsening of medical condition. Patient was counseled about treatment plan, medications, possible side effects, patientverbalized understanding. All questions were answered to the best of my ability. This discharge took greater then 30 minutes in planning, reviewing documentation, counseling the patient, and discussing with other team members." ASSESSMENT ASSESSMENT Assessment general weakness Date of Service: Jul 11, 2025 Billing Provider: RICHIE DELGADO MD Common Visit Codes: 38101-AWN/OBS DISCH DAY >30min JASEN CHÁVEZ RESIDENT Jul 11, 2025 14:12 RICHIE DELGADO MD Jul 11, 2025 21:43
[2025-07-11] MEDS ORDERED: BLOOKIT79 XX (14:25)
[2025-07-11] MEDS ORDERED: BLOO1KIT60 XX (14:25)
== END 2025-07-11 14:50 | disposition home or self-care (01) | DRG 720 ==
LOC: ER 10:26 → OVERFLOW 22:57 → EAST 07-07 18:39
PROVIDERS: ADMIT Student in an Organized Health Care Education/Training Program; ATTEND Student in an Organized Health Care Education/Training Program
DX: A41.9 Sepsis, unspecified organism (principal); N17.0 Acute kidney failure with tubular necrosis; E87.0 Hyperosmolality and hypernatremia; G90.89 Other disorders of autonomic nervous system; L02.413 Cutaneous abscess of right upper limb; E11.65 Type 2 diabetes mellitus with hyperglycemia; E66.9 Obesity, unspecified; K80.10 Calculus of gallbladder with chronic cholecystitis without obstruction; K80.20 Calculus of gallbladder without cholecystitis without obstruction; E86.0 Dehydration; M60.9 Myositis, unspecified; M06.9 Rheumatoid arthritis, unspecified; K76.0 Fatty (change of) liver, not elsewhere classified; T36.8X5A Adverse effect of other systemic antibiotics, initial encounter; Z68.29 Body mass index [BMI] 29.0-29.9, adult; Z79.899 Other long term (current) drug therapy; Z83.3 Family history of diabetes mellitus; Y92.89 Other specified places as the place of occurrence of the external cause; J12.9 Viral pneumonia, unspecified
CPT/HCPCS: 36415; 71045; 74181; 76700; 76881; 78226; 80048; 80053; 80076; 80307; 81001; 81015; 82140; 82550; 82570; 82962; 83516; 83605; 83735; 83935; 84100; 84133; 84156; 84300; 84550; 85025; 85610; 85652; 85730; 86160; 86225; 86235; 86704; 86706; 86708; 86803; 87040; 87077; 87081; 87186; 87205; 87340; 93005; 93306; 93886; 96360; G0378; J1815; J2405; J2470; J3480

== ENCOUNTER 2025-08-11 09:44 | Outpatient (CLI) | payer MEDICAID ==
[~2025-08-11 09:44] MED LIST changes: +AMOX500T86 PO; +BLOO1KIT60 XX; +BLOOKIT79 XX; +DOCU-265 PO; +INSREGI SC; +METF-370 PO; +ZOFR4T PO
[2025-08-11 10:11] LABS: Urine Protein, UAD Negative (Negative)
[2025-08-11 11:01] LABS: Anion Gap 11 (5-15); Calcium 10.1 mg/dL (8.7-10.4); Carbon Dioxide 26 mmol/L (20-31); Chloride 107 mmol/L (98-107); Sodium 144 mmol/L (136-145)
[2025-08-11 11:04] LABS: Potassium 3.2 mmol/L (3.5-5.1); Protein, Urine 26.0 mg/dL (1-14)
[2025-08-11 11:07] LABS: BUN/Creatinine Ratio 19.2 (10.0-20.0); Blood Urea Nitrogen 14 mg/dL (9-23); Glucose 103 mg/dL (74-106)
== END 2025-08-11 17:00 | disposition home or self-care (01) ==
LOC: LAB 09:44
PROVIDERS: ATTEND Internal Medicine
DX: E11.65 Type 2 diabetes mellitus with hyperglycemia (principal)
CPT/HCPCS: 36415; 80048; 81001; 82043; 82570; 84156

== ENCOUNTER 2025-09-15 08:07 | Outpatient (CLI) | payer MEDICAID ==
[2025-09-15 08:39] LABS: Potassium 4.0 mmol/L (3.5-5.1); Sodium 144 mmol/L (136-145)
[2025-09-15 08:40] LABS: Calcium 9.5 mg/dL (8.7-10.4); Carbon Dioxide 26 mmol/L (20-31)
[2025-09-15 08:45] LABS: BUN/Creatinine Ratio 16.5 (10.0-20.0); Blood Urea Nitrogen 13 mg/dL (9-23); Glucose 92 mg/dL (74-106)
[2025-09-15 09:15] LABS: Anion Gap 9 (5-15)
[2025-09-15 09:16] LABS: Chloride 109 mmol/L (98-107)
== END 2025-09-15 17:00 | disposition home or self-care (01) ==
LOC: LAB 08:07
PROVIDERS: ATTEND Internal Medicine
DX: E11.22 Type 2 diabetes mellitus with diabetic chronic kidney disease (principal); N18.9 Chronic kidney disease, unspecified
CPT/HCPCS: 36415; 80048